=== PATIENT | female | born 1960 | race Caucasian/White ===

== ENCOUNTER 2021-08-26 14:00 | Inpatient (IN) | payer OTHER ==
[~2021-08-26] VITALS: Ht 162.6 cm; Wt 69.9 kg
[~2021-08-26 14:00] MED LIST: SODIUM BICARBONATE VIAL 150 MEQ in IV DEXTROSE 5% 1,000 ML IV ONE
--- NOTE | 2021-08-26 14:07 | PHYS DOC ---
Adult General Chief Complaint Chief Complaint: SHORTNESS OF BREATH HPI HPI Patient is a 60 year old female who presents with cough. Patient is known to have COVID. She comes to the emergency department today primarily requesting stronger cough medication. Patient has been seen at [facility] 2 days ago and the same 3 days ago. Prior to that, she was seen at the [facility] for 2 consecutive days. Currently, this is her fifth emergency department visit since she was diagnosed with COVID. Today, she primarily is requesting stronger cough medication. She says she has a very persistent cough at home. She does not complain of shortness of breath. She does complain of myalgias, fatigue, and decreased appetite. No nausea or vomiting. Review of Systems Review of Systems Constitutional: Denies fever or chills Eyes: Denies change in visual acuity, redness, or eye pain HENT: Has upper respiratory congestion and some hoarseness of the voice Respiratory: Denies cough or shortness of breath, + cough as documented in HPI Cardiovascular: No additional information not addressed in HPI GI: Denies abdominal pain, nausea, vomiting, bloody stools or diarrhea, + diminished PO intake : Denies dysuria or hematuria Musculoskeletal: Denies back pain Integument: Denies rash or skin lesions Neurologic: Denies All other systems were reviewed and found to be within normal limits, except as documented in this note. Current Medications Current Medications Current Medications Medications (Trade) Dose Ordered Sig/[facility] Start Time Stop Time Status Last Admin Dose Admin Sodium Chloride 1,000 ml @ 1,000 mls/hr 1X ONCE 08/26/21 15:15 08/26/21 16:14 Allergies Allergies Allergies Coded Allergies Type Severity Reaction Last Updated Verified Unable to Assess 08/26/21 No Physical Exam Physical Exam Constitutional: Well developed, well nourished, no acute distress, non-toxic appearance, no distress HENT: bilateral external ears normal, oropharynx moist, no oral exudates Eyes: PERRLA, EOMI, conjunctiva normal, no discharge Neck: Normal range of motion, no tenderness Cardiovascular:Heart rate regular rhythm, no murmur Lungs & Thorax: Bilateral breath sounds clear to auscultation, noted to be tachypneic Abdomen: Bowel sounds normal, soft, no tenderness Skin: Warm, dry, no erythema, no rash Back: Normal ROM Extremities: No tenderness, no edema Neurologic: Alert and oriented X 3, normal motor function, normal sensory func tion, no focal deficits noted. Current Patient Data Vital Signs Vital Signs Date Time Temp Pulse Resp B/P (MAP) Pulse Ox O2 Delivery O2 Flow Rate FiO2 08/26/21 14:14 98.9 115 40 121/60 (80) 95 Nasal Cannula 5.0 98.9 Lab Values Laboratory Tests Test 08/26/21 14:45 D-Dimer (Ailin) 4.51 ug/mlFEU (0.00-0.50) H EKG EKG [] Radiology/Procedures Radiology/Procedures [] Course & Med Decision Making Course & Med Decision Making Pertinent Labs and Imaging studies reviewed. (See chart for details) Ms. Alves is evaluated on arrival to her room. Patient is not very forthcoming with history. She presents to the emergency department via EMS. She has paperwork from ER visits. It looks like she has had multiple chest x- rays and basic lab work-ups over the last 5 days. She was stable for discharge all of those times. Currently, she is in no distress. Her lungs are clear with good air movement all multani. Her oxygen saturation is 97% on room air. She is requesting a refill of stronger cough medication. Patient does not give a good history and she is calling her daughter and to give more history. Based on available documents, does not look that she has had dimer completed and we will draw this test today. 15:30: Patient's daughter now at the bedside and available history is gathered. Daughter states patient has been doing very poorly over the last week since being diagnosed with COVID at home. She has been dyspneic. They do have a pulse oximeter at home and daughter reports she has had been having episodes of hypoxia down into the low 80s, primarily with activity. She does have history of diabetes for which she normally takes metformin but has not been eating any food over the last week. EMS was called today because patient was feeling poorly and moaning at home and was not as responsive to other family members as normal. Also again had hypoxia with readings in the 80s at home. Patient has continued to be mildly tachypneic during the ER course with respiratory rate of 36-40. Given the new history, additional labs are ordered along with EKG. Will give IV fluids. We will do walking oxygen desaturation test. Dragon Disclaimer Sheela Disclaimer This electronic medical record was generated, in whole or in part, using a voice recognition dictation system. DWIGHT HUANG DO Aug 26, 2021 14:07
[2021-08-26] MEDS ORDERED: IV NORMAL SALINE 1000ML BAG 1,000 ML IV ONE ×2 (15:15→16:30)
--- NOTE | 2021-08-26 15:31 | RAD ---
XR CHEST 1V INDICATION: Dyspnea COMPARISON STUDY: None. FINDINGS: Lungs: Normal lung volume. Patchy bilateral opacities. Pleura: No pleural effusion or pneumothorax. Heart and Mediastinum: Cardiomegaly. Atherosclerosis of the thoracic aorta. IMPRESSION: Patchy bilateral opacities, which could represent multifocal infection or edema. Electronically signed by: Alirio Robins MD (08/26/2021 3:28 PM) [id number]
[2021-08-26 15:48] LABS: BASE EXCESS ABG -21 mmol/L (-3-3); HCO3 ABG 5 mmol/L (21-28); PO2 ABG 71 mmHg (65-108); SAT O2 ABG 93 % (92-99)
[2021-08-26 15:55] LABS: FIO2 ABG 21/RA; PCO2 ABG < 15 mmHg (35-46)
[2021-08-26] MEDS ORDERED: DEXAMETHASONE SOD PHOS 20 MG/5 ML VIAL. IV ONE (16:00)
[2021-08-26 16:04] LABS: CALCIUM 8.6 mg/dL (8.5-10.1); GFR 56.2; POTASSIUM 4.2 mmol/L (3.5-5.1)
[2021-08-26 16:09] LABS: BASO % 0 % (0-3); EOS % 0 % (0-3); HEMOGLOBIN 14.3 g/dL (12.0-15.5); LYMPH # 0.9 x10^3/uL (1.0-4.8); LYMPH % 7 % (24-48); MEAN CORPUSCULAR HEMOGLOBIN 29 pg (25-35); MEAN CORPUSCULAR HGB CONC 32 g/dL (31-37); MEAN CORPUSCULAR VOLUME 90 fL (79-100); MONO # 0.4 x10^3/uL (0.0-1.1); MONO % 3 % (0-9); NEUT # 11.1 x10^3/uL (1.8-7.7); NEUT % 90 % (31-73); PLATELET COUNT 211 x10^3/uL (140-400); RED BLOOD COUNT 5.01 x10^6/uL (3.50-5.40); RED CELL DISTRIBUTION WIDTH 16.3 % (11.5-14.5); WHITE BLOOD COUNT 12.4 x10^3/uL (4.0-11.0)
[2021-08-26] MEDS ORDERED: CONTRAST GIVEN. MC PRN (16:30)
[2021-08-26] MEDS ORDERED: IOHEXOL 350 MG/ML 100 ML VIAL. IV ONE (16:30)
--- NOTE | 2021-08-26 17:02 | RAD ---
EXAMINATION: CTA Chest With IV contrast INDICATION:60 years, Female, dyspnea, elevated d-dimer, Covid 19 pneumonia, evaluate for pulmonary em bolism. COMPARISON: None. TECHNIQUE: Spiral CTA was obtained from the jugular notch through the posterior costophrenic recess. 3-D MIPS, sagittal and coronal reformats were obtained. Exposure: One or more of the following individualized dose reduction techniques were utilized for thi s examination: 1. Automated exposure control 2. Adjustment of the mA and/or kV according to patient size 3. Use of iterative reconstruction technique. FINDINGS: LUNGS/PLEURA: Central airways are patent. Multifocal bilateral patchy groundglass opacities worst in the left lung. No pleural effusion or pneumothorax. No suspicious pulmonary nodule. MEDIASTINUM: Multiple nonenlarged to prominent mediastinal and bilateral hilar lymph nodes, likely re active. The thoracic aorta and pulmonary arteries are normal in caliber. 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 No evidence of pulmonary embolism. The heart is normal in size. No pericardial e ffusion. LAD stent. Thyroid gland is not visualized. Esophagus is unremarkable. AXILLA/SOFT TISSUE: No supraclavicular or axillary adenopathy. Regional soft tissues are within ellis l limits. UPPER ABDOMEN: Cholecystectomy. Otherwise, unremarkable visualized upper abdominal structures. BONES: No evidence of acute fractures or aggressive osseous lesions. IMPRESSION: 1. No evidence of pulmonary embolism. 2. Multifocal bilateral patchy groundglass opacities, consistent with known Covid 19 pneumonia. Electronically signed by: Jhony Avila MD (08/26/2021 4:59 PM) [facility]
[2021-08-26 17:14] LABS: % BANDS 25 % (0-9); % BASOS 2 % (0-3); % LYMPHS 12 % (24-48); % SEGS 61 % (35-66); PLT ESTIMATE ADEQUATE (ADEQUATE)
[2021-08-26 17:16] LABS: OVALOCYTES OCC; POIKILOCYTOSIS SLIGHT
[2021-08-26 17:17] LABS: POLYCHROMASIA PRESENT; SPHEROCYTES OCC
[2021-08-26 19:00] VITALS: BP 127/68
[2021-08-26] MEDS ORDERED: SODIUM BICARBONATE VIAL 50 MEQ in IV 1/2 NORMAL SALINE 1,000 ML IV SCH ×2 (19:00→21:00)
--- NOTE | 2021-08-26 19:35 | NUR ---
Patient's bag of bicarb now running at wide open (999ml), x first 500 mls, per free text order,
--- NOTE | 2021-08-26 20:03 | HP ---
DATE OF SERVICE: 08/26/2021 ADMIT DATE: 08/26/2021 CHIEF COMPLAINT: Shortness of breath, cough. HISTORY OF PRESENT ILLNESS: The patient is a pleasant 60-year-old female who was diagnosed with COVID some time in the past 10-15 days. She has been to 5 different ERs including [facility]. She has also come to our Emergency Room a couple times. Basically, she presented today complaining of cough. While in the ER, we noticed that her labs are off. She has got anion gap metabolic acidosis with a combined respiratory alkalosis. She is also quite weak and pale, appears septic. I discussed the case with ER physician. We are going to admit the patient with COVID protocol plus bicarbonate drip. PAST MEDICAL HISTORY: Recent COVID-19. ALLERGIES: None. FAMILY HISTORY: Diabetes. SOCIAL HISTORY: She does not drink, smoke or take drugs. MEDICATIONS: Reviewed, please refer to the MRAD. REVIEW OF SYSTEMS: Difficult to obtain. The patient can hardly talk. She is short of breath. She does complain of weakness. PHYSICAL EXAMINATION: VITALS: Within normal limits and are stable. GENERAL: She is very weak. HEENT: Normal cephalic atraumatic, external auditory canals are patent. EYES: Extraocular muscles are intact, pupils are equally round and reactive to light and accommodation. MUSCULOSKELETAL: Well developed, well nourished, good range of motion. ENDOCRINE: No thyromegaly was palpated. LYMPHATICS: No cervical chain or axillary nodes were noted. HEMATOPOIETIC: No bruising. NECK: Supple, no JVD, no thyromegaly was noted. LUNGS: She has decreased breath sounds, but is a little tachypneic at about 28 breaths per minute. She has got a cough. HEART: RRR, S1, S2 present. Peripheral pulses intact, no obvious murmurs were noted. ABDOMEN: Her abdomen is distended, a little obese. EXTREMITIES: Trace edema. NEUROLOGIC: She is very weak. PSYCHIATRIC: She appears depressed. SKIN: No ulcerations or rashes, good skin turgor, no jaundice. VASCULAR: Good capillary refill, neurovascular bundle appears to be intact. LABORATORY DATA: White count 12, hemoglobin 14.3, platelets 211. Electrolytes: Sodium 140, potassium 4.2, chloride 108, bicarbonate 7, anion gap 25, BUN 17, creatinine 1, glucose 144. D-dimer 4.51. ABG: pH 7.17, pCO2 less than 15, pO2 of 71, bicarbonate 5 with 93% sat that was on room air. Chest x-ray shows multifocal infection. CT angio of the chest did not show any pulmonary emboli, but does show ground glass opacities consistent with COVID-19 pneumonia. ASSESSMENT AND PLAN: Severe COVID-19 respiratory failure with anion gap metabolic acidosis and combined respiratory alkalosis, sepsis, coagulopathy. The patient has been admitted. We are starting IV bicarbonate drip, IV steroids, IV Rocephin, IV doxycycline, vitamins and minerals, oxygen, codeine cough syrup, Lovenox, home meds, deep venous thrombosis prophylaxis. Full code. Cardiac monitoring. Trend labs. Prognosis guarded. JOCELYNN DR: Marisel TID: [id number]
[2021-08-26] MEDS ORDERED: VENTOLIN HFA18 GM INH (20:23)
[2021-08-26] MEDS ORDERED: IBUP-1007 PO (20:23)
[2021-08-26] MEDS ORDERED: LISI20TA18 PO (20:23)
[2021-08-26] MEDS ORDERED: BENZ-8 PO (20:23)
[2021-08-26] MEDS ORDERED: ONDA4TAB12 PO (20:23)
[2021-08-26] MEDS ORDERED: CRESTOR40 MG PO (20:23)
[2021-08-26] MEDS ORDERED: EMPA10TA PO (20:23)
[2021-08-26] MEDS ORDERED: LEVO150T5 PO (20:23)
[2021-08-26] MEDS ORDERED: TICA90TA PO (20:23)
[2021-08-26] MEDS ORDERED: GUAI120L35 PO (20:23)
[2021-08-26] MEDS ORDERED: METF10007 PO (20:23)
[2021-08-26] MEDS ORDERED: ASPI-630 PO (20:23)
[2021-08-26] MEDS ORDERED: CARV6.2511 PO (20:23)
[2021-08-26] MEDS ORDERED: LEVO750T5 PO (20:23)
[2021-08-26] MEDS ORDERED: cefTRIAXone IV Push 1 GM VIAL. IVP SCH (21:00)
[2021-08-26] MEDS: DOXYCYCLINE HYCLATE 100 MG in IV DEXTROSE 5% 100ML 100 ML IV SCH (22:11)
[2021-08-26] MEDS: methylPREDNISolone SOD SUCC PF 40 MG/ML VIAL. IV SCH (22:21)
[2021-08-26 22:51] VITALS: BP 137/70
[2021-08-26 23:25] LABS: BASE EXCESS ABG -26 mmol/L (-3-3); HCO3 ABG 4 mmol/L (21-28); PO2 ABG 84 mmHg (65-108); SAT O2 ABG 94 % (92-99)
[2021-08-26 23:34] LABS: PCO2 ABG 15 mmHg (35-46)
--- NOTE | 2021-08-26 23:54 | NUR ---
Dr Chuck Freedman, consulted regarding patient's ABG levels, is notified of the levels, Dr suggests pulmonology to be called.
[2021-08-27] VITALS (28 sets, daily range): BP systolic 80–156; BP diastolic 51–72
[2021-08-27] MEDS ORDERED: SODIUM BICARBONATE VIAL 150 MEQ in IV DEXTROSE 5% 1,000 ML IV ONE
[2021-08-27 00:12] LABS: FIO2 ABG RA
--- NOTE | 2021-08-27 00:16 | NUR ---
Dr Blanca notified of consult, patient's abnormal abg's, and of transferring to ICU, suggests nephrology to be called, agrees to the order for 3 amps bicarb.
[2021-08-27] MEDS ORDERED: PIP/TAZO PER PHARMACY MC PRN (00:30)
--- NOTE | 2021-08-27 00:52 | NUR ---
Order for 0000 3 amps bicarb was a duplicate, one was administered, and this one was omitted/not given
[2021-08-27] MEDS: PIPERACILLIN/TAZOBACTAM 4.5 GM in IV DEXTROSE 5% 100ML 100 ML IV SCH ×5 (00:55→23:36)
[2021-08-27 02:10] LABS: SALIC 8.4 mg/dL (2.8-20.0)
--- NOTE | 2021-08-27 02:15 | NUR ---
Patient transferred to room 114, patient declined to have this nurse call family members regarding her transfer, or status change, this is witnessed per oncoming nurse.
--- NOTE | 2021-08-27 02:32 | NUR ---
patient transferredfrom % for low bicarb levels, increase soa. will cont bicarb. O@ add. patient is axox4 but sleepy. will monitor
[2021-08-27 02:43] LABS: BASO # 0.1 x10^3/uL (0.0-0.2); BASO % 0 % (0-3); EOS % 0 % (0-3); HEMATOCRIT 46.7 % (36.0-47.0); HEMOGLOBIN 14.7 g/dL (12.0-15.5); LYMPH # 1.4 x10^3/uL (1.0-4.8); LYMPH % 5 % (24-48); MEAN CORPUSCULAR HEMOGLOBIN 29 pg (25-35); MEAN CORPUSCULAR HGB CONC 32 g/dL (31-37); MEAN CORPUSCULAR VOLUME 91 fL (79-100); MONO % 4 % (0-9); NEUT # 24.7 x10^3/uL (1.8-7.7); NEUT % 91 % (31-73); PLATELET COUNT 352 x10^3/uL (140-400); RED BLOOD COUNT 5.13 x10^6/uL (3.50-5.40); RED CELL DISTRIBUTION WIDTH 17.3 % (11.5-14.5); WHITE BLOOD COUNT 27.1 x10^3/uL (4.0-11.0)
[2021-08-27 02:49] LABS: CALCIUM 7.9 mg/dL (8.5-10.1); GFR 56.2; POTASSIUM 4.8 mmol/L (3.5-5.1)
[2021-08-27 04:28] LABS: % BANDS 10 % (0-9); % LYMPHS 7 % (24-48); % MONOS 2 % (0-10); % SEGS 81 % (35-66); ANISOCYTOSIS SLIGHT; PLT ESTIMATE ADEQUATE (ADEQUATE); TOXIC GRANULATION SLIGHT
[2021-08-27] MEDS ORDERED: MIDAZOLAM HCL/PF 5 MG/5 ML VIAL. IVP PRN (05:30)
[2021-08-27] MEDS ORDERED: VECURONIUM BOLUS 10 MG VIAL. IV PRN (05:30)
[2021-08-27] MEDS ORDERED: PROPOFOL 100 ML IV ONE (05:32)
[2021-08-27] MEDS ORDERED: ROCURONIUM 50 MG/5 ML VIAL. ONE (05:38)
[2021-08-27] MEDS ORDERED: PROPOFOL 10 MG/ML (100ML) VIAL. IV ONE (06:00)
[2021-08-27 06:02] LABS: BASE EXCESS ABG -24 mmol/L (-3-3); HCO3 ABG 4 mmol/L (21-28); PO2 ABG 62 mmHg (65-108); SAT O2 ABG 90 % (92-99)
[2021-08-27 06:04] LABS: FIO2 ABG 40 (5L NC); PCO2 ABG 15 mmHg (35-46)
[2021-08-27] MEDS: MIDAZOLAM 100mg/100ml NS BAG 100 ML IV PRN ×2 (06:27→21:04)
[2021-08-27] MEDS ORDERED: SODIUM BICARBONATE VIAL 150 MEQ in IV DEXTROSE 5% 1,000 ML IV SCH (06:30)
[2021-08-27 07:19] LABS: BILIRUBIN,URINE NEGATIVE (NEG); CLARITY,URINE CLOUDY; COLOR,URINE YELLOW; NITRITE,URINE NEGATIVE (NEG); PROTEIN,URINE 30 mg/dL (NEG-TRACE); UROBILINOGEN,URINE 0.2 mg/dL (0.2 mg/dL)
--- NOTE | 2021-08-27 07:22 | NUR ---
repeat abg done- see results- Rianna called order for intubation, LEGAL TRANSCRIPTIONIST here, patient intubated, A line place, TL place. CXR done. To have a ct scan today
--- NOTE | 2021-08-27 07:26 | RAD ---
XR CHEST 1V INDICATION: intubation COMPARISON STUDY: 08/26/2021. FINDINGS: Life Support Devices: Endotracheal tube terminates 5.5 cm above the juan. Enteric tube terminates i n the stomach. Right IJ central venous catheter with tip overlying the lower SVC. Lungs: Normal lung volume. Stable patchy bilateral opacities. Pleura: No pleural effusion or pneumothorax. Heart and Mediastinum: Stable cardiomediastinal silhouette and great vessels. IMPRESSION: 1. Life support devices as above. No pneumothorax. 2. Stable patchy bilateral opacities. Electronically signed by: Alirio Robins MD (08/27/2021 7:24 AM) [id number]
--- NOTE | 2021-08-27 07:34 | NUR ---
family notified of intubation
[2021-08-27 07:53] LABS: BACTERIA,URINE 0 /HPF (0-FEW); GRANULAR CASTS,URINE FEW /HPF; HYALINE CASTS, URINE OCCASIONAL /HPF; WBC,URINE 0 /HPF (0-4)
[2021-08-27] MEDS ORDERED: NOREPINEPHRINE VIAL 8 MG in IV DEXTROSE 5% 250 ML IV PRN (08:00)
[2021-08-27 08:10] LABS: BASE EXCESS ABG -24 mmol/L (-3-3); HCO3 ABG 8 mmol/L (21-28); PCO2 ABG 37 mmHg (35-46); PO2 ABG 204 mmHg (65-108); SAT O2 ABG 99 % (92-99)
[2021-08-27] MEDS ORDERED: SODIUM BICARB ADULT 8.4% 50 MEQ/50 ML DISP.SYRIN. IV ONE (08:30)
[2021-08-27 08:31] LABS: BASO # 0.1 x10^3/uL (0.0-0.2); BASO % 0 % (0-3); EOS % 0 % (0-3); HEMATOCRIT 43.1 % (36.0-47.0); HEMOGLOBIN 13.7 g/dL (12.0-15.5); LYMPH # 1.3 x10^3/uL (1.0-4.8); LYMPH % 5 % (24-48); MEAN CORPUSCULAR HEMOGLOBIN 28 pg (25-35); MEAN CORPUSCULAR HGB CONC 32 g/dL (31-37); MEAN CORPUSCULAR VOLUME 90 fL (79-100); MONO # 1.3 x10^3/uL (0.0-1.1); MONO % 4 % (0-9); NEUT # 26.2 x10^3/uL (1.8-7.7); NEUT % 91 % (31-73); PLATELET COUNT 358 x10^3/uL (140-400); RED BLOOD COUNT 4.81 x10^6/uL (3.50-5.40); RED CELL DISTRIBUTION WIDTH 16.9 % (11.5-14.5); WHITE BLOOD COUNT 28.9 x10^3/uL (4.0-11.0)
[2021-08-27 08:45] LABS: ALBUMIN 2.2 g/dL (3.4-5.0); ALBUMIN/GLOBULIN RATIO 0.6 (1.0-1.7); CALCIUM 7.8 mg/dL (8.5-10.1); CREATININE 1.3 mg/dL (0.6-1.0); GFR 41.5; MAGNESIUM 2.2 mg/dL (1.8-2.4); PHOSPHORUS 3.9 mg/dL (2.6-4.7); POTASSIUM 3.8 mmol/L (3.5-5.1); TOTAL BILIRUBIN 0.6 mg/dL (0.2-1.0); TOTAL PROTEIN 6.1 g/dL (6.4-8.2)
[2021-08-27] MEDS: MULTIVITAMIN with MINERAL TABLET. PO SCH (08:51)
[2021-08-27] MEDS: methylPREDNISolone SOD SUCC PF 40 MG/ML VIAL. IV SCH (08:51)
[2021-08-27] MEDS: ENOXAPARIN 40 MG/0.4 ML SYRINGE. SQ SCH (08:52)
[2021-08-27] MEDS: DOXYCYCLINE HYCLATE 100 MG in IV DEXTROSE 5% 100ML 100 ML IV SCH ×2 (08:58→21:33)
--- NOTE | 2021-08-27 09:29 | PDOC ---
Provider Note Date of Service: DATE: 08/27/21 TIME: 09:10 Provider Note Anesthesia note. Requested for Intubation, arterial line, and central line placement in patient in respiratory failure with Covid . 7.5 OET placed without diff with #3 Glidescope after propofol and rocuronium for relaxation, Positive color change on EtCO2 indicator, BSBE, tube secured by RT at 20 cm at the teeth. Pt placed on the ventilator. #20 Arrow placed in right radial artery without difficulty using sterile technique and chlorhexidene prep. 7 Fr 3 lumen central line placed in right internal jugular vein with ultrasound guidance using sterile technique and maximum sterile barrier. Clorhexidene prep, jugular vein easily entered and guidewire inserted. 3lumen catheter introduced over wire without difficulty, wire removed and all lumens flushed with 10cc normal saline. Catheter sutured in place and covered with biopatch and Op-site dressing. Chest X-ray ordered. Intubation and lines placed by Abe Reyes CRNA Justifications for Admission Other Justification LAMBERTO REYES CRNA Aug 27, 2021 09:29
[2021-08-27] MEDS ORDERED: IV 1/2 NORMAL SALINE 1,000 ML IV SCH ×2 (10:00→18:00)
[2021-08-27] MEDS: POTASSIUM CHLORIDE 20MEQ 100 ML IV SCH ×2 (10:17→11:13)
[2021-08-27] MEDS: INSULIN REGULAR VIAL 100 UNIT in IV NORMAL SALINE 100ML 100 ML IV PRN ×2 (10:18→17:07)
--- NOTE | 2021-08-27 11:22 | CONS ---
DATE OF CONSULTATION: 08/27/2021 PULMONARY CONSULTATION ATTENDING PHYSICIAN: Jag Schwarz DO REASON FOR CONSULTATION: Respiratory failure, severe metabolic acidosis. HISTORY OF PRESENT ILLNESS: The patient is a 60-year-old female who has history of diabetes. She was diagnosed with COVID positive about 10-15 days ago. She has been to multiple different Emergency Rooms. She presented to our Emergency Room with complaint of shortness of breath. She also had a cough. The patient was noted to have severe metabolic acidosis. I was called about the patient early this morning. The pH was 7.17 with a pCO2 of less than 15 and a bicarbonate of only 5 on room air. Her pO2 was 71. Her chemistries revealed a blood sugar of 266. Her BUN was 26 and creatinine 1.0. At that time, we transferred the patient to the ICU. This morning, she was noted to be lethargic. At that time, we opted to intubate the patient as the patient's pH has been down to 7.0 with a pCO2 of 15 and a pO2 of 84 with a bicarb of 4. The patient had a CT angiogram, which was reviewed by me and it shows diffuse bilateral patchy infiltrates with no evidence of pulmonary embolism. Her chest x-ray post-intubation shows endotracheal tube to be in satisfactory position. There were unchanged bilateral infiltrates. She is currently on a bicarbonate drip. She is making a lot of urine. Her blood sugar is 397. She is a known diabetic. PAST MEDICAL HISTORY: Significant for diabetes. PAST SURGICAL HISTORY: None recently. ALLERGIES: None. MEDICATIONS: Reviewed as listed in the MRAD including IV Solu-Medrol and IV Zosyn. She is also on Levophed and Lovenox for DVT prophylaxis. SYSTEM REVIEW: Unable to obtain from the patient. SOCIAL HISTORY: No history of tobacco use. PHYSICAL EXAMINATION: VITAL SIGNS: Reviewed. Blood pressure 100 systolic on low dose Levophed. Pulse ox is 100%. NECK: Supple. LUNGS: With diminished breath sounds. CARDIOVASCULAR: With a regular rate. ABDOMEN: Soft, nontender. EXTREMITIES: With no pitting edema. She has good perfusion. LABORATORY DATA: Reviewed. Her sodium 146, potassium 3.8, chloride 110, bicarbonate 10, BUN 31, creatinine 1.3. Blood glucose 397. D-dimer is 4.1. White cell count 28.9. IMPRESSION: 1. Acute respiratory failure secondary to severe metabolic acidosis. 2. Severe metabolic acidosis. Likely etiology is diabetic ketoacidosis. Her lactic acid was 1.6. She clinically has a component of septic shock as well. She is not in renal failure as she is making reasonable urine. Clinically, less likely bowel perforation. 3. Abnormal chest x-ray and CT angiogram with diffuse bilateral patchy infiltrates consistent with viral pneumonia. 4. COVID-19 positive. 5. Severe protein-calorie malnutrition. 6. Marked leukocytosis. 7. Septic shock. RECOMMENDATIONS: 1. Discussed with respiratory therapist and RN. At this time, we will continue present assist control mode. Follow ABGs and make necessary adjustments. 2. Diabetic ketoacidosis protocol. 3. Continue vasopressor support. 4. IV hydration. 5. Continue low-dose Solu-Medrol for COVID-19. 6. It is too late for remdesivir. 7. Lovenox for DVT prophylaxis. 8. Continue present aggressive treatment. 9. If metabolic acidosis does not improve then consider doing abdomen and pelvis to rule out bowel perforation. 10. Discussed with RN and RT. 11. Discussed with Dr. Smith. 12. Chart reviewed, imaging studies reviewed. Total critical care time [address]: Kira TID: [id number]
--- NOTE | 2021-08-27 11:58 | PDOC2 ---
CONSULT Date of Consult Date of Consult DATE: 08/27/21 TIME: 11:47 Reason for Consult Reason for Consult: Abnormal ABG Referring Physician Referring Physician: Chong Identification/Chief Complaint Chief Complaint Cough with COVID positivity Source Source: Chart review History of Present Illness Reason for Visit: Patient is a 60-year-old female who presented to the ER on 08/26/2021 with complaints of cough. She is noted to have been diagnosed with COVID about a week or 2 ago. She apparently has been seen at [facility] as well as at [facility]. As reported in the ER this is her fifth ER visit. She was initially requesting stronger cough medication she was noted to have a bicarb of 7 and an anion gap of 25 with a BUN of 17 and a creatinine of 1.0. her initial ABG was 7.17 with a undetectable PCO2 and a PO2 of 71 bicarb of 5 on room air. Most recent ABG is 6.95, 37, 204, bicarb of 8 while now intubated on ventilator. Creatinine has raised up to 1.3. Urine output is good. CTA with IV contrast was done in the ER Past Medical History Past Medical History Hypothyroidism History of heart attack status post stents Dyslipidemia Hypertension Asthma Diabetes Past Surgical History Past Surgical History: Cholecystectomy Family History Family History Unable to be obtained from the patient while sedated intubated in COVID 19 respiratory isolation. Reviewed as documented by other providers Social History Social History Unable to be obtained from the patient was sedated intubated and COVID-19 respiratory isolation. Reviewed as documented by other providers Current Medications Current Medications Current Medications Sodium Chloride 1,000 ml @ 1,000 mls/hr 1X ONCE IV Last administered on 08/26/21at 15:15; Admin Dose 1,000 MLS/HR; Start 08/26/21 at 15:15; Stop 08/26/21 at 16:14; Status DC Dexamethasone Sodium Phosphate (Decadron) 10 mg 1X ONCE IV Last administered on 08/26/21at 16:00; Admin Dose 10 MG; Start 08/26/21 at 16:00; Stop 08/26/21 at 16:01; Status DC Iohexol (Omnipaque 350 Mg/ml) 90 ml 1X ONCE IV Last administered on 08/26/21at 16:41; Admin Dose 90 ML; Start 08/26/21 at 16:30; Stop 08/26/21 at 16:31; Status DC Info (CONTRAST GIVEN -- Rx MONITORING) 1 each PRN DAILY PRN MC SEE COMMENTS; Start 08/26/21 at 16:30; Stop 08/28/21 at 16:29 Sodium Chloride 1,000 ml @ 1,000 mls/hr 1X ONCE IV ; Start 08/26/21 at 16:30; Stop 08/26/21 at 17:29; Status DC Sodium Bicarbonate 50 meq/Sodium Chloride 1,050 ml @ 100 mls/hr [id number] IV Last administered on 08/26/21at 18:32; Admin Dose 100 MLS/HR; Start 08/26/21 at 19:00; Stop 08/26/21 at 21:03; Status DC Methylprednisolone Sodium Succinate (SOLU-Medrol 40MG VIAL) 40 mg BID IV Last administered on 08/27/21at 08:51; Admin Dose 40 MG; Start 08/26/21 at 21:00 Ceftriaxone Sodium (Rocephin) 1 gm Q24H IVP Last administered on 08/26/21at 22:22; Admin Dose 1 GM; Start 08/26/21 at 21:00; Stop 08/27/21 at 00:25; Status DC Doxycycline Hyclate 100 mg/ Dextrose 100 ml @ 50 mls/hr Q12HR IV Last administered on 08/27/21at 08:58; Admin Dose 50 MLS/HR; Start 08/26/21 at 21:00 Enoxaparin Sodium (Lovenox 40mg Syringe) 40 mg DAILY SQ Last administered on 08/27/21at 08:52; Admin Dose 40 MG; Start 08/27/21 at 09:00 Multivitamins (Thera M Plus) 1 tab DAILY PO Last administered on 08/27/21at 08:51; Admin Dose 1 TAB; Start 08/27/21 at 09:00 Sodium Bicarbonate 50 meq/Sodium Chloride 1,050 ml @ 200 mls/hr Q5H15M IV ; Start 08/26/21 at 21:00; Stop 08/26/21 at 23:59; Status DC Sodium Bicarbonate 150 meq/Dextrose 1,150 ml @ 200 mls/hr Q5H45M ONCE IV ; Start 08/26/21 at 00:00; Stop 08/26/21 at 23:45; Status DC Sodium Bicarbonate 150 meq/Dextrose 1,150 ml @ 200 mls/hr Q5H45M ONCE IV Last administered on 08/26/21at 23:54; Admin Dose 200 MLS/HR; Start 08/27/21 at 00:00; Stop 08/27/21 at 05:44; Status DC Piperacillin Sod/ Tazobactam Sod (Zosyn Per Pharmacy) 1 each PRN DAILY PRN MC SEE COMMENTS; Start 08/27/21 at 00:30 Piperacillin Sod/ Tazobactam Sod 4.5 gm/Dextrose 100 ml @ 200 mls/hr Q6HRS IV Last administered on 08/27/21at 11:13; Admin Dose 200 MLS/HR; Start 08/27/21 at 01:00 Fentanyl Citrate 30 ml @ 2.5 mls/hr CONT PRN IV SEE PROTOCOL Last administered on 08/27/21at 06:26; Admin Dose 2.5 MLS/HR; Start 08/27/21 at 05:30 Midazolam HCl 100 ml @ 1 mls/hr CONT PRN IV SEE PROTOCOL Last administered on 08/27/21at 06:27; Admin Dose 1 MLS/HR; Start 08/27/21 at 05:30 Vecuronium [place] (Norcuron Bolus) 6 mg PRN 1X PRN IV VENT INDUCTION Last administered on 08/27/21at 06:28; Admin Dose 6 MG; Start 08/27/21 at 05:30; Stop 08/27/21 at 06:28; Status DC Midazolam HCl (Versed) 5 mg PRN 1X PRN IVP VENT INDUCTION; Start 08/27/21 at 05:30; Stop 08/28/21 at 05:29 Propofol 100 ml @ 2.013 mls/ hr CONT PRN IV PER PROTOCOL; Start 08/27/21 at 05:30 Sodium Bicarbonate 150 meq/Dextrose 1,150 ml @ 200 mls/hr Q5H45M IV Last administered on 08/27/21at 06:30; Admin Dose 200 MLS/HR; Start 08/27/21 at 06:30 Norepinephrine Bitartrate 8 mg/ Dextrose 258 ml @ 12.984 mls/ hr CONT PRN IV PER PROTOCOL; Start 08/27/21 at 08:00 Sodium Bicarbonate (Sodium Bicarb Adult 8.4% Syr) 50 meq 1X ONCE IV Last administered on 08/27/21at 08:49; Admin Dose 50 MEQ; Start 08/27/21 at 08:30; Stop 08/27/21 at 08:31; Status DC Insulin Human Regular 100 unit/ Sodium Chloride 101 ml @ 0 mls/hr CONT PRN PRN IV PER PROTOCOL Last administered on 08/27/21at 10:18; Admin Dose 6.7 MLS/HR; Start 08/27/21 at 09:30 Potassium Chloride/Water 100 ml @ 100 mls/hr Q1H IV Last administered on 08/27/21at 11:13; Admin Dose 100 MLS/HR; Start 08/27/21 at 10:00; Stop 08/27/21 at 11:59 Sodium Chloride 1,000 ml @ 250 mls/hr Q4H IV Last administered on 08/27/21at 10:18; Admin Dose 250 MLS/HR; Start 08/27/21 at 10:00 Active Scripts Active Reported Aspirin 81 Mg Tab.chew 1 Tab PO DAILY Codeine-Guaifen 10-100 mg/5 ml (Guaifenesin/Codeine Phosphate) 120 Ml Liquid 5 Ml PO PRN Q6HRS PRN MDD 20 Milliliter(s) 6 Days Ibuprofen 600 Mg Tablet 600 Mg PO PRN Q8HRS PRN Ondansetron Odt (Ondansetron) 4 Mg Tab.rapdis 1 Tab PO PRN Q6-8HRS Benzonatate 100 Mg Capsule 1 Cap PO TID Carvedilol (Carvedilol) 6.25 Mg Tablet 6.25 Mg PO BIDWMEALS Levothyroxine Sodium 150 Mcg Tablet 1 Tab PO DAILY Levofloxacin 750 Mg Tablet 1 Tab PO DAILY PRN Jardiance (Empagliflozin) 10 Mg Tablet 10 Mg PO DAILY Lisinopril 20 Mg Tablet 1 Tab PO BID Metformin Hcl 1,000 Mg Tablet 1,000 Mg PO BIDWMEALS Crestor (Rosuvastatin Calcium) 40 Mg Tablet 20 Mg PO HS Ventolin Hfa Inhaler (Albuterol Sulfate) 18 Gm Hfa.aer.ad 2 Puff INH Q4HRS Brilinta (Ticagrelor) 90 Mg Tablet 90 Mg PO BID Allergies Allergies: Coded Allergies: No Known Drug Allergies (Unverified , 08/26/21) ROS Review of System Unable to be obtained from the patient was sedated intubated and COVID-19 respiratory isolation. Reviewed as documented by other providers Physical Exam Physical Exam Physical exam is extremely limited due to COVID-19 respiratory isolation patient is currently intubated sedated on the ventilator Vital Signs Vital Signs Date Time Temp Pulse Resp B/P (MAP) Pulse Ox O2 Delivery O2 Flow Rate FiO2 08/27/21 10:53 99 Ventilator 08/27/21 08:00 94 08/27/21 07:29 93/52 (66) 08/27/21 06:56 20 08/27/21 06:26 5.0 08/27/21 04:00 97.8 97.8 Assessment & Plan Abnormal ABG suggestive of wide anion gap metabolic acidosis. Lactic acid is minimal. We are unable to order serum ketones at this facility. Urine ketones were positive. Hence ketosis seems to be the most likely etiology of metabolic acidosis. She remains on bicarb containing fluids at this time. Patient is on Jardiance at home and metabolic acidosis due to the same cannot be ruled out if metabolic acidosis continues to worsen, she may need initiation of dialysis. She remains on dextrose with bicarb drip and on DKA protocol. Acute kidney injury presumably associated with intravascular volume depletion, hypotension, contrast nephropathy from CTA cannot be ruled out. Home medications do show ibuprofen, it is unclear to me how much she has taken in the recent past Hypotension on minimal pressors. We will be cautious with aggressive volume repletion in light of COVID pneumonitis Known underlying diabetes COVID-19 positivity Prognosis is guarded Labs Labs Laboratory Tests Test 08/26/21 14:45 08/26/21 15:30 08/26/21 15:45 08/26/21 23:02 White Blood Count 12.4 x10^3/uL (4.0-11.0) Red Blood Count 5.01 x10^6/uL (3.50-5.40) Hemoglobin 14.3 g/dL (12.0-15.5) Hematocrit 45.0 % (36.0-47.0) Mean Corpuscular Volume 90 fL (79-100) Mean Corpuscular Hemoglobin 29 pg (25-35) Mean Corpuscular Hemoglobin Concent 32 g/dL (31-37) Red Cell Distribution Width 16.3 % (11.5-14.5) Platelet Count 211 x10^3/uL (140-400) Neutrophils (%) (Auto) 90 % (31-73) Lymphocytes (%) (Auto) 7 % (24-48) Monocytes (%) (Auto) 3 % (0-9) Eosinophils (%) (Auto) 0 % (0-3) Basophils (%) (Auto) 0 % (0-3) Neutrophils # (Auto) 11.1 x10^3/uL (1.8-7.7) Lymphocytes # (Auto) 0.9 x10^3/uL (1.0-4.8) Monocytes # (Auto) 0.4 x10^3/uL (0.0-1.1) Eosinophils # (Auto) 0.0 x10^3/uL (0.0-0.7) Basophils # (Auto) 0.0 x10^3/uL (0.0-0.2) Segmented Neutrophils % 61 % (35-66) Band Neutrophils % 25 % (0-9) Lymphocytes % 12 % (24-48) Basophils % 2 % (0-3) Platelet Estimate Adequate (ADEQUATE) Large Platelets Present Polychromasia Present Poikilocytosis Slight Spherocytes Occ Ovalocytes Occ Crenated Cell Present D-Dimer (Ailin) 4.51 ug/mlFEU (0.00-0.50) Sodium Level 140 mmol/L (136-145) Potassium Level 4.2 mmol/L (3.5-5.1) Chloride Level 108 mmol/L (98-107) Carbon Dioxide Level 7 mmol/L (21-32) Anion Gap 25 (6-14) Blood Urea Nitrogen 17 mg/dL (7-20) Creatinine 1.0 mg/dL (0.6-1.0) Estimated GFR (Cockcroft-Gault) 56.2 Glucose Level 144 mg/dL (70-99) Calcium Level 8.6 mg/dL (8.5-10.1) Troponin I High Sensitivity 8 ng/L (4-50) Lactic Acid Level 1.6 mmol/L (0.4-2.0) O2 Saturation 93 % (92-99) 94 % (92-99) Arterial Blood pH 7.17 (7.35-7.45) 7.00 (7.35-7.45) Arterial Blood pCO2 at Patient Temp < 15 mmHg (35-46) 15 mmHg (35-46) Arterial Blood pO2 at Patient Temp 71 mmHg (65-108) 84 mmHg (65-108) Arterial Blood HCO3 5 mmol/L (21-28) 4 mmol/L (21-28) Arterial Blood Base Excess -21 mmol/L (-3-3) -26 mmol/L (-3-3) FiO2 21/ra Ra Test 08/27/21 01:40 08/27/21 03:57 08/27/21 04:38 08/27/21 06:45 White Blood Count 27.1 x10^3/uL (4.0-11.0) Red Blood Count 5.13 x10^6/uL (3.50-5.40) Hemoglobin 14.7 g/dL (12.0-15.5) Hematocrit 46.7 % (36.0-47.0) Mean Corpuscular Volume 91 fL (79-100) Mean Corpuscular Hemoglobin 29 pg (25-35) Mean Corpuscular Hemoglobin Concent 32 g/dL (31-37) Red Cell Distribution Width 17.3 % (11.5-14.5) Platelet Count 352 x10^3/uL (140-400) Neutrophils (%) (Auto) 91 % (31-73) Lymphocytes (%) (Auto) 5 % (24-48) Monocytes (%) (Auto) 4 % (0-9) Eosinophils (%) (Auto) 0 % (0-3) Basophils (%) (Auto) 0 % (0-3) Neutrophils # (Auto) 24.7 x10^3/uL (1.8-7.7) Lymphocytes # (Auto) 1.4 x10^3/uL (1.0-4.8) Monocytes # (Auto) 1.0 x10^3/uL (0.0-1.1) Eosinophils # (Auto) 0.0 x10^3/uL (0.0-0.7) Basophils # (Auto) 0.1 x10^3/uL (0.0-0.2) Segmented Neutrophils % 81 % (35-66) Band Neutrophils % 10 % (0-9) Lymphocytes % 7 % (24-48) Monocytes % 2 % (0-10) Toxic Granulation Slight Platelet Estimate Adequate (ADEQUATE) Anisocytosis Slight Sodium Level 145 mmol/L (136-145) Potassium Level 4.8 mmol/L (3.5-5.1) Chloride Level 110 mmol/L (98-107) Carbon Dioxide Level 6 mmol/L (21-32) Anion Gap 29 (6-14) Blood Urea Nitrogen 26 mg/dL (7-20) Creatinine 1.0 mg/dL (0.6-1.0) Estimated GFR (Cockcroft-Gault) 56.2 Glucose Level 261 mg/dL (70-99) Calcium Level 7.9 mg/dL (8.5-10.1) Salicylates Level 8.4 mg/dL (2.8-20.0) Salicylate Last Dose Date Unk Salicylate Last Dose Time Unk Glucose (Fingerstick) 266 mg/dL (70-99) O2 Saturation 90 % (92-99) Arterial Blood pH 7.06 (7.35-7.45) Arterial Blood pCO2 at Patient Temp 15 mmHg (35-46) Arterial Blood pO2 at Patient Temp 62 mmHg (65-108) Arterial Blood HCO3 4 mmol/L (21-28) Arterial Blood Base Excess -24 mmol/L (-3-3) FiO2 40 (5l nc) Urine Collection Type Unknown Urine Color Yellow Urine Clarity Cloudy Urine pH 5.0 (<5.0-8.0) Urine Specific May 1.025 (1.000-1.030) Urine Protein 30 mg/dL (NEG-TRACE) Urine Glucose (UA) >=1000 mg/dL (NEG) Urine Ketones (Stick) >=80 mg/dL (NEG) Urine Blood Small (NEG) Urine Nitrite Negative (NEG) Urine Bilirubin Negative (NEG) Urine Urobilinogen Dipstick 0.2 mg/dL (0.2 mg/dL) Urine Leukocyte Esterase Negative (NEG) Urine RBC 1-2 /HPF (0-2) Urine WBC 0 /HPF (0-4) Urine Squamous Epithelial Cells Occ /LPF Urine Bacteria 0 /HPF (0-FEW) Urine Hyaline Casts Occasional /HPF Urine Granular Casts Few /HPF Urine Mucus Mod /LPF Test 08/27/21 08:00 08/27/21 08:15 08/27/21 11:21 O2 Saturation 99 % (92-99) Arterial Blood pH 6.95 (7.35-7.45) Arterial Blood pCO2 at Patient Temp 37 mmHg (35-46) Arterial Blood pO2 at Patient Temp 204 mmHg (65-108) Arterial Blood HCO3 8 mmol/L (21-28) Arterial Blood Base Excess -24 mmol/L (-3-3) FiO2 100/vent White Blood Count 28.9 x10^3/uL (4.0-11.0) Red Blood Count 4.81 x10^6/uL (3.50-5.40) Hemoglobin 13.7 g/dL (12.0-15.5) Hematocrit 43.1 % (36.0-47.0) Mean Corpuscular Volume 90 fL (79-100) Mean Corpuscular Hemoglobin 28 pg (25-35) Mean Corpuscular Hemoglobin Concent 32 g/dL (31-37) Red Cell Distribution Width 16.9 % (11.5-14.5) Platelet Count 358 x10^3/uL (140-400) Neutrophils (%) (Auto) 91 % (31-73) Lymphocytes (%) (Auto) 5 % (24-48) Monocytes (%) (Auto) 4 % (0-9) Eosinophils (%) (Auto) 0 % (0-3) Basophils (%) (Auto) 0 % (0-3) Neutrophils # (Auto) 26.2 x10^3/uL (1.8-7.7) Lymphocytes # (Auto) 1.3 x10^3/uL (1.0-4.8) Monocytes # (Auto) 1.3 x10^3/uL (0.0-1.1) Eosinophils # (Auto) 0.0 x10^3/uL (0.0-0.7) Basophils # (Auto) 0.1 x10^3/uL (0.0-0.2) Sodium Level 146 mmol/L (136-145) Potassium Level 3.8 mmol/L (3.5-5.1) Chloride Level 110 mmol/L (98-107) Carbon Dioxide Level 10 mmol/L (21-32) Anion Gap 26 (6-14) Blood Urea Nitrogen 31 mg/dL (7-20) Creatinine 1.3 mg/dL (0.6-1.0) Estimated GFR (Cockcroft-Gault) 41.5 BUN/Creatinine Ratio 24 (6-20) Glucose Level 397 mg/dL (70-99) Calcium Level 7.8 mg/dL (8.5-10.1) Phosphorus Level 3.9 mg/dL (2.6-4.7) Magnesium Level 2.2 mg/dL (1.8-2.4) Total Bilirubin 0.6 mg/dL (0.2-1.0) Aspartate Amino Transf (AST/SGOT) 85 U/L (15-37) Alanine Aminotransferase (ALT/SGPT) 47 U/L (14-59) Alkaline Phosphatase 139 U/L (46-116) Total Protein 6.1 g/dL (6.4-8.2) Albumin 2.2 g/dL (3.4-5.0) Albumin/Globulin Ratio 0.6 (1.0-1.7) Glucose (Fingerstick) 375 mg/dL (70-99) Laboratory Tests Test 08/26/21 14:45 08/26/21 15:30 08/26/21 15:45 08/26/21 23:02 White Blood Count 12.4 x10^3/uL (4.0-11.0) Red Blood Count 5.01 x10^6/uL (3.50-5.40) Hemoglobin 14.3 g/dL (12.0-15.5) Hematocrit 45.0 % (36.0-47.0) Mean Corpuscular Volume 90 fL (79-100) Mean Corpuscular Hemoglobin 29 pg (25-35) Mean Corpuscular Hemoglobin Concent 32 g/dL (31-37) Red Cell Distribution Width 16.3 % (11.5-14.5) Platelet Count 211 x10^3/uL (140-400) Neutrophils (%) (Auto) 90 % (31-73) Lymphocytes (%) (Auto) 7 % (24-48) Monocytes (%) (Auto) 3 % (0-9) Eosinophils (%) (Auto) 0 % (0-3) Basophils (%) (Auto) 0 % (0-3) Neutrophils # (Auto) 11.1 x10^3/uL (1.8-7.7) Lymphocytes # (Auto) 0.9 x10^3/uL (1.0-4.8) Monocytes # (Auto) 0.4 x10^3/uL (0.0-1.1) Eosinophils # (Auto) 0.0 x10^3/uL (0.0-0.7) Basophils # (Auto) 0.0 x10^3/uL (0.0-0.2) Segmented Neutrophils % 61 % (35-66) Band Neutrophils % 25 % (0-9) Lymphocytes % 12 % (24-48) Basophils % 2 % (0-3) Platelet Estimate Adequate (ADEQUATE) Large Platelets Present Polychromasia Present Poikilocytosis Slight Spherocytes Occ Ovalocytes Occ Crenated Cell Present D-Dimer (Ailin) 4.51 ug/mlFEU (0.00-0.50) Sodium Level 140 mmol/L (136-145) Potassium Level 4.2 mmol/L (3.5-5.1) Chloride Level 108 mmol/L (98-107) Carbon Dioxide Level 7 mmol/L (21-32) Anion Gap 25 (6-14) Blood Urea Nitrogen 17 mg/dL (7-20) Creatinine 1.0 mg/dL (0.6-1.0) Estimated GFR (Cockcroft-Gault) 56.2 Glucose Level 144 mg/dL (70-99) Calcium Level 8.6 mg/dL (8.5-10.1) Troponin I High Sensitivity 8 ng/L (4-50) Lactic Acid Level 1.6 mmol/L (0.4-2.0) O2 Saturation 93 % (92-99) 94 % (92-99) Arterial Blood pH 7.17 (7.35-7.45) 7.00 (7.35-7.45) Arterial Blood pCO2 at Patient Temp < 15 mmHg (35-46) 15 mmHg (35-46) Arterial Blood pO2 at Patient Temp 71 mmHg (65-108) 84 mmHg (65-108) Arterial Blood HCO3 5 mmol/L (21-28) 4 mmol/L (21-28) Arterial Blood Base Excess -21 mmol/L (-3-3) -26 mmol/L (-3-3) FiO2 21/ra Ra Test 08/27/21 01:40 08/27/21 03:57 08/27/21 04:38 08/27/21 06:45 White Blood Count 27.1 x10^3/uL (4.0-11.0) Red Blood Count 5.13 x10^6/uL (3.50-5.40) Hemoglobin 14.7 g/dL (12.0-15.5) Hematocrit 46.7 % (36.0-47.0) Mean Corpuscular Volume 91 fL (79-100) Mean Corpuscular Hemoglobin 29 pg (25-35) Mean Corpuscular Hemoglobin Concent 32 g/dL (31-37) Red Cell Distribution Width 17.3 % (11.5-14.5) Platelet Count 352 x10^3/uL (140-400) Neutrophils (%) (Auto) 91 % (31-73) Lymphocytes (%) (Auto) 5 % (24-48) Monocytes (%) (Auto) 4 % (0-9) Eosinophils (%) (Auto) 0 % (0-3) Basophils (%) (Auto) 0 % (0-3) Neutrophils # (Auto) 24.7 x10^3/uL (1.8-7.7) Lymphocytes # (Auto) 1.4 x10^3/uL (1.0-4.8) Monocytes # (Auto) 1.0 x10^3/uL (0.0-1.1) Eosinophils # (Auto) 0.0 x10^3/uL (0.0-0.7) Basophils # (Auto) 0.1 x10^3/uL (0.0-0.2) Segmented Neutrophils % 81 % (35-66) Band Neutrophils % 10 % (0-9) Lymphocytes % 7 % (24-48) Monocytes % 2 % (0-10) Toxic Granulation Slight Platelet Estimate Adequate (ADEQUATE) Anisocytosis Slight Sodium Level 145 mmol/L (136-145) Potassium Level 4.8 mmol/L (3.5-5.1) Chloride Level 110 mmol/L (98-107) Carbon Dioxide Level 6 mmol/L (21-32) Anion Gap 29 (6-14) Blood Urea Nitrogen 26 mg/dL (7-20) Creatinine 1.0 mg/dL (0.6-1.0) Estimated GFR (Cockcroft-Gault) 56.2 Glucose Level 261 mg/dL (70-99) Calcium Level 7.9 mg/dL (8.5-10.1) Salicylates Level 8.4 mg/dL (2.8-20.0) Salicylate Last Dose Date Unk Salicylate Last Dose Time Unk Glucose (Fingerstick) 266 mg/dL (70-99) O2 Saturation 90 % (92-99) Arterial Blood pH 7.06 (7.35-7.45) Arterial Blood pCO2 at Patient Temp 15 mmHg (35-46) Arterial Blood pO2 at Patient Temp 62 mmHg (65-108) Arterial Blood HCO3 4 mmol/L (21-28) Arterial Blood Base Excess -24 mmol/L (-3-3) FiO2 40 (5l nc) Urine Collection Type Unknown Urine Color Yellow Urine Clarity Cloudy Urine pH 5.0 (<5.0-8.0) Urine Specific May 1.025 (1.000-1.030) Urine Protein 30 mg/dL (NEG-TRACE) Urine Glucose (UA) >=1000 mg/dL (NEG) Urine Ketones (Stick) >=80 mg/dL (NEG) Urine Blood Small (NEG) Urine Nitrite Negative (NEG) Urine Bilirubin Negative (NEG) Urine Urobilinogen Dipstick 0.2 mg/dL (0.2 mg/dL) Urine Leukocyte Esterase Negative (NEG) Urine RBC 1-2 /HPF (0-2) Urine WBC 0 /HPF (0-4) Urine Squamous Epithelial Cells Occ /LPF Urine Bacteria 0 /HPF (0-FEW) Urine Hyaline Casts Occasional /HPF Urine Granular Casts Few /HPF Urine Mucus Mod /LPF Test 08/27/21 08:00 08/27/21 08:15 08/27/21 11:21 O2 Saturation 99 % (92-99) Arterial Blood pH 6.95 (7.35-7.45) Arterial Blood pCO2 at Patient Temp 37 mmHg (35-46) Arterial Blood pO2 at Patient Temp 204 mmHg (65-108) Arterial Blood HCO3 8 mmol/L (21-28) Arterial Blood Base Excess -24 mmol/L (-3-3) FiO2 100/vent White Blood Count 28.9 x10^3/uL (4.0-11.0) Red Blood Count 4.81 x10^6/uL (3.50-5.40) Hemoglobin 13.7 g/dL (12.0-15.5) Hematocrit 43.1 % (36.0-47.0) Mean Corpuscular Volume 90 fL (79-100) Mean Corpuscular Hemoglobin 28 pg (25-35) Mean Corpuscular Hemoglobin Concent 32 g/dL (31-37) Red Cell Distribution Width 16.9 % (11.5-14.5) Platelet Count 358 x10^3/uL (140-400) Neutrophils (%) (Auto) 91 % (31-73) Lymphocytes (%) (Auto) 5 % (24-48) Monocytes (%) (Auto) 4 % (0-9) Eosinophils (%) (Auto) 0 % (0-3) Basophils (%) (Auto) 0 % (0-3) Neutrophils # (Auto) 26.2 x10^3/uL (1.8-7.7) Lymphocytes # (Auto) 1.3 x10^3/uL (1.0-4.8) Monocytes # (Auto) 1.3 x10^3/uL (0.0-1.1) Eosinophils # (Auto) 0.0 x10^3/uL (0.0-0.7) Basophils # (Auto) 0.1 x10^3/uL (0.0-0.2) Sodium Level 146 mmol/L (136-145) Potassium Level 3.8 mmol/L (3.5-5.1) Chloride Level 110 mmol/L (98-107) Carbon Dioxide Level 10 mmol/L (21-32) Anion Gap 26 (6-14) Blood Urea Nitrogen 31 mg/dL (7-20) Creatinine 1.3 mg/dL (0.6-1.0) Estimated GFR (Cockcroft-Gault) 41.5 BUN/Creatinine Ratio 24 (6-20) Glucose Level 397 mg/dL (70-99) Calcium Level 7.8 mg/dL (8.5-10.1) Phosphorus Level 3.9 mg/dL (2.6-4.7) Magnesium Level 2.2 mg/dL (1.8-2.4) Total Bilirubin 0.6 mg/dL (0.2-1.0) Aspartate Amino Transf (AST/SGOT) 85 U/L (15-37) Alanine Aminotransferase (ALT/SGPT) 47 U/L (14-59) Alkaline Phosphatase 139 U/L (46-116) Total Protein 6.1 g/dL (6.4-8.2) Albumin 2.2 g/dL (3.4-5.0) Albumin/Globulin Ratio 0.6 (1.0-1.7) Glucose (Fingerstick) 375 mg/dL (70-99) Review All relevant outside records, renal labs, imaging studies, telemetry/EKG's were reviewed. Images Images CTA done in the ER IMPRESSION: 1. No evidence of pulmonary embolism. 2. Multifocal bilateral patchy groundglass opacities, consistent with known Covid 19 pneumonia. MANJU HILL MD Aug 27, 2021 11:58
--- NOTE | 2021-08-27 12:06 | CONS ---
DATE OF CONSULTATION: 08/27/2021 REFERRING PHYSICIAN: Dr. Blanca. REASON FOR CONSULTATION: Sepsis, severe metabolic acidosis. HISTORY OF PRESENT ILLNESS: A 60-year-old female with history of diabetes, recently diagnosed with COVID about 2 weeks ago, who had been into multiple different emergency rooms, presented to [facility] ED with complaints of shortness of breath and cough.Pt is currently intubated in ICU on levophed.HIstory obtained from staff and medical chart.In ED pt was afebrile. White count was 12.4, bicarbonate of 7, creatinine of 1.0. Troponin was normal. Lactate was 1.6, glucose of 144. UA showed glycosuria, small blood, no wbc's. Salicylate level was 8.4. Chest x-ray revealed patchy bilateral opacities, which could represent multifocal infection or edema. Chest CT showed no evidence of pulmonary embolism, multifocal bilateral patchy ground glass opacities consistent with known COVID pneumonia. The patient underwent intubation with art line and central line placement this morning, enteric tube was placed. The patient received ceftriaxone in the ER, currently is on Zosyn and doxycycline, also on bicarbonate drip. ID consultation has been requested for antibiotic management. The patient remains on Levophed. Glucose this morning is 397. PAST MEDICAL HISTORY: Diabetes. PAST SURGICAL HISTORY: as per HPI ALLERGIES: None. SOCIAL HISTORY: No smoking or alcohol.Lives at home REVIEW OF SYSTEMS: Unable to obtain. CURRENT MEDICATIONS: Zosyn, doxycycline, Levophed, and Solu-Medrol. Other medications reviewed in medication list. PHYSICAL EXAMINATION: VITAL SIGNS: Temperature 97.8, pulse 100, respiratory rate 20, blood pressure 93/52, oxygen saturation 99% on ventilator. GENERAL: Intubated and sedated. HEENT: ETT, OGT tube in place. Normocephalic, atraumatic. Anicteric. NECK: Supple. LUNGS: Decreased breath sound. HEART: S1, S2. No murmurs. ABDOMEN: Soft, nondistended, bowel sounds present.No grimacing on deep palpation GENITOURINARY: Jack in place. EXTREMITIES: No pitting edema. DERMATOLOGIC: Warm, dry. No generalized rash. CENTRAL NERVOUS SYSTEM: Intubated and sedated. PSYCHIATRIC: Unable to assess. LINES: Right IJ clean. Art line clean. PIV clean. LABORATORY DATA: WBC 28.9, hemoglobin 13.7, hematocrit 43.1, platelets 358. Sodium 140, potassium 4.0, chloride 108, bicarbonate 7, BUN 17, creatinine 1.0, glucose 144, calcium 8.6.Lactic acid 1.6. Troponin 8. UA shows glycosuria, wbc's is 0. Salicylate 8.4. IMAGING: Chest x-ray as above. Chest CTA as above. Repeat chest x-ray as above. MICRO: None. IMPRESSION: 1. Severe sepsis.Appears Multifactorial. Afebrile 2. Acute hypoxic respiratory failure, status post intubation. 3. Severe metabolic acidosis. Lactate was 1.6. 4. Diabetes mellitus.Glycosuria, hyperglycemia, likely etiology appears to be diabetic ketoacidosis. 5. COVID-19 positive [employer] for 10-15 days with abnormal chest x-ray and CTA, 6. Leukocytosis, on steroids. 7. Elevated D-dimer.CTA negative for PE RECOMMENDATIONS: 1. Continue Zosyn and doxycycline. 2. On bicarbonate drip. 3. Obtain blood culture. 4. Agree with obtaining CT abdomen and pelvis if metabolic acidosis does not improve with bicarbonate treatment. 5. COVID management per primary, on Steroids 7. Monitor labs and cultures. Discussed with nursing staff.Discussed with DR Blanca Thank you, Dr. Blanca, for consulting Infectious Disease to participate in this patient's care. If you have any questions, do not hesitate to contact me. [facility] [place] : [place] TID: [id number] [facility]
[2021-08-27] MEDS: SODIUM BICARB ADULT 8.4% 50 MEQ/50 ML DISP.SYRIN. IV SCH ×4 (12:23→16:07)
[2021-08-27 12:37] LABS: BASE EXCESS ABG -18 mmol/L (-3-3); HCO3 ABG 11 mmol/L (21-28); PCO2 ABG 33 mmHg (35-46); PO2 ABG 85 mmHg (65-108); SAT O2 ABG 96 % (92-99)
[2021-08-27] MEDS ORDERED: SODIUM BICARBONATE VIAL 100 MEQ in IV DEXTROSE 5% 1,000 ML IV SCH (13:00)
[2021-08-27 13:12] LABS: CALCIUM 6.9 mg/dL (8.5-10.1); CREATININE 1.1 mg/dL (0.6-1.0); GFR 50.3; MAGNESIUM 1.8 mg/dL (1.8-2.4); PHOSPHORUS 1.8 mg/dL (2.6-4.7); POTASSIUM 3.2 mmol/L (3.5-5.1)
[2021-08-27] MEDS ORDERED: IV DEXTROSE 5% 1,000 ML IV SCH (13:30)
--- NOTE | 2021-08-27 13:30 | PDOC ---
GENERAL General: Patient examined chart reviewed, case discussed with nursing and Dr. Freedman of nephrology. Today's hospital day 2 for this patient with acute hypoxic re spiratory failure secondary to COVID-pneumonia. She has been ill for about 10 days and went to multiple emergency departments in [place] [facility], continued to clinically worsen. Was admitted with severe metabolic acidosis admission bicarbonate of 6. Her pH prior to transfer this morning to the intensive care unit was 6.96. She has improved already through the day relative to the metabolic acidosis on bicarbonate infusion. Per Dr. Freedman we will continue to run that and follow her metabolic panel closely. Appreciate subspecialty support. Nephrology is suspecting adverse effect from Jardiance as the cause of the metabolic acidosis along with diabetic ketoacidosis. Patient is on an insulin infusion and remains significantly hyperglycemic. She is on a bicarb D5 infusion and we will continue that at this point unless her hyperglycemia persists we can then switch to a bicarb free water infusion or even CRRT if her bicarbonate levels do not improve. Contributing to the hyperglycemia is also the steroid treatment for her COVID pneumonitis. We will continue current management otherwise. Time spent today is 30 minutes with greater than 50% in counseling and coordination of care most of which in discussion with medical team and extensive review of medical records regarding care plan and progress. Problems: (1) Acute respiratory failure with hypoxia (2) Pneumonia due to COVID-19 virus (3) Metabolic acidosis (4) Diabetic ketoacidosis VITAL SIGNS Vital Signs/I&O: Vital Signs Date Time Temp Pulse Resp B/P (MAP) Pulse Ox O2 Delivery O2 Flow Rate FiO2 08/27/21 12:00 90 08/27/21 10:53 99 Ventilator 08/27/21 07:29 93/52 (66) 08/27/21 07:00 97.6 20 97.6 08/27/21 06:26 5.0 I & O 08/26/21 08/26/21 08/27/21 15:00 23:00 07:00 Intake Total 1918 ml Output Total 500 ml 2450 ml Balance -500 ml -532 ml Patient is intubated and sedated unresponsive on the ventilator HEENT exam is unremarkable for acute abnormality Neck is soft and supple no adenopathy or thyromegaly noted Chest bilateral equal air entry though diminished throughout no crackles or wheezes are noted Heart S1-S2 normal regular rate and rhythm no murmurs or gallops and had Abdomen soft nontender nondistended no masses organomegaly noted Extremity exam is unremarkable for acute abnormality ALLERGIES Allergies: Allergies Coded Allergies Type Severity Reaction Last Updated Verified No Known Drug Allergies 08/26/21 No MEDS Medications: Current Medications Medications (Trade) Dose Ordered Sig/Silvia Start Time Stop Time Status Last Admin Dose Admin Ceftriaxone Sodium (Rocephin) 1 gm Q24H 08/26/21 21:00 08/27/21 00:25 DC 08/26/21 22:22 Dexamethasone Sodium Phosphate (Decadron) 10 mg 1X ONCE 08/26/21 16:00 08/26/21 16:01 DC 08/26/21 16:00 Doxycycline Hyclate 100 mg/ Dextrose 100 ml @ 50 mls/hr Q12HR 08/26/21 21:00 08/27/21 08:58 Enoxaparin Sodium (Lovenox 40mg Syringe) 40 mg DAILY 08/27/21 09:00 08/27/21 08:52 Fentanyl Citrate 30 ml @ 2.5 mls/hr CONT PRN 08/27/21 05:30 08/27/21 06:26 Info (CONTRAST GIVEN -- Rx MONITORING) 1 each PRN DAILY PRN 08/26/21 16:30 08/28/21 16:29 Insulin Human Regular 100 unit/ Sodium Chloride 101 ml @ 0 mls/hr CONT PRN PRN 08/27/21 09:30 08/27/21 10:18 Iohexol (Omnipaque 350 Mg/ml) 90 ml 1X ONCE 08/26/21 16:30 08/26/21 16:31 DC 08/26/21 16:41 Methylprednisolone Sodium Succinate (SOLU-Medrol 40MG VIAL) 40 mg BID 08/26/21 21:00 08/27/21 08:51 Midazolam HCl (Versed) 5 mg PRN 1X PRN 08/27/21 05:30 08/28/21 05:29 Multivitamins (Thera M Plus) 1 tab DAILY 08/27/21 09:00 08/27/21 08:51 Norepinephrine Bitartrate 8 mg/ Dextrose 258 ml @ 12.984 mls/ hr CONT PRN 08/27/21 08:00 Piperacillin Sod/ Tazobactam Sod (Zosyn Per Pharmacy) 1 each PRN DAILY PRN 08/27/21 00:30 Piperacillin Sod/ Tazobactam Sod 4.5 gm/Dextrose 100 ml @ 200 mls/hr Q6HRS 08/27/21 01:00 08/27/21 11:13 Potassium Chloride/Water 100 ml @ 100 mls/hr Q1H 08/27/21 10:00 08/27/21 11:59 DC 08/27/21 11:13 Propofol 100 ml @ 2.013 mls/ hr CONT PRN 08/27/21 05:30 Sodium Bicarbonate 100 meq/Dextrose 1,100 ml @ 200 mls/hr Q5H30M 08/27/21 13:00 08/27/21 12:25 Sodium Bicarbonate 150 meq/Dextrose 1,150 ml @ 200 mls/hr Q5H45M 08/27/21 06:30 08/27/21 11:58 DC 08/27/21 06:30 Sodium Bicarbonate 50 meq/Sodium Chloride 1,050 ml @ 200 mls/hr Q5H15M 08/26/21 21:00 08/26/21 23:59 DC Sodium Bicarbonate (Sodium Bicarb Adult 8.4% Syr) 50 meq Q1HR 08/27/21 12:00 08/27/21 15:01 08/27/21 12:23 Sodium Chloride 1,000 ml @ 250 mls/hr Q4H 08/27/21 10:00 08/27/21 11:58 DC 08/27/21 10:18 Vecuronium [place] (Norcuron Bolus) 6 mg PRN 1X PRN 08/27/21 05:30 08/27/21 06:28 DC 08/27/21 06:28 Current Medications Medications (Trade) Dose Ordered Sig/Silvia Route PRN Reason Start Time Stop Time Status Last Admin Dose Admin Sodium Chloride 1,000 ml @ 1,000 mls/hr 1X ONCE IV 08/26/21 15:15 08/26/21 16:14 DC 08/26/21 15:15 Dexamethasone Sodium Phosphate (Decadron) 10 mg 1X ONCE IV 08/26/21 16:00 08/26/21 16:01 DC 08/26/21 16:00 Iohexol (Omnipaque 350 Mg/ml) 90 ml 1X ONCE IV 08/26/21 16:30 08/26/21 16:31 DC 08/26/21 16:41 Sodium Bicarbonate 50 meq/Sodium Chloride 1,050 ml @ 100 mls/hr [id number] IV 08/26/21 19:00 08/26/21 21:03 DC 08/26/21 18:32 Methylprednisolone Sodium Succinate (SOLU-Medrol 40MG VIAL) 40 mg BID IV 08/26/21 21:00 08/27/21 08:51 Ceftriaxone Sodium (Rocephin) 1 gm Q24H IVP 08/26/21 21:00 08/27/21 00:25 DC 08/26/21 22:22 Doxycycline Hyclate 100 mg/ Dextrose 100 ml @ 50 mls/hr Q12HR IV 08/26/21 21:00 08/27/21 08:58 Enoxaparin Sodium (Lovenox 40mg Syringe) 40 mg DAILY SQ 08/27/21 09:00 08/27/21 08:52 Multivitamins (Thera M Plus) 1 tab DAILY PO 08/27/21 09:00 08/27/21 08:51 Sodium Bicarbonate 150 meq/Dextrose 1,150 ml @ 200 mls/hr Q5H45M ONCE IV 08/27/21 00:00 08/27/21 05:44 DC 08/26/21 23:54 Piperacillin Sod/ Tazobactam Sod 4.5 gm/Dextrose 100 ml @ 200 mls/hr Q6HRS IV 08/27/21 01:00 08/27/21 11:13 Fentanyl Citrate 30 ml @ 2.5 mls/hr CONT PRN IV SEE PROTOCOL 08/27/21 05:30 08/27/21 06:26 Midazolam HCl 100 ml @ 1 mls/hr CONT PRN IV SEE PROTOCOL 08/27/21 05:30 08/27/21 06:27 Vecuronium [place] (Norcuron Bolus) 6 mg PRN 1X PRN IV VENT INDUCTION 08/27/21 05:30 08/27/21 06:28 DC 08/27/21 06:28 Sodium Bicarbonate 150 meq/Dextrose 1,150 ml @ 200 mls/hr Q5H45M IV 08/27/21 06:30 08/27/21 11:58 DC 08/27/21 06:30 Sodium Bicarbonate (Sodium Bicarb Adult 8.4% Syr) 50 meq 1X ONCE IV 08/27/21 08:30 08/27/21 08:31 DC 08/27/21 08:49 Insulin Human Regular 100 unit/ Sodium Chloride 101 ml @ 0 mls/hr CONT PRN PRN IV PER PROTOCOL 08/27/21 09:30 08/27/21 10:18 Potassium Chloride/Water 100 ml @ 100 mls/hr Q1H IV 08/27/21 10:00 08/27/21 11:59 DC 08/27/21 11:13 Sodium Chloride 1,000 ml @ 250 mls/hr Q4H IV 08/27/21 10:00 08/27/21 11:58 DC 08/27/21 10:18 Sodium Bicarbonate 100 meq/Dextrose 1,100 ml @ 200 mls/hr Q5H30M IV 08/27/21 13:00 08/27/21 12:25 Sodium Bicarbonate (Sodium Bicarb Adult 8.4% Syr) 50 meq Q1HR IV 08/27/21 12:00 08/27/21 15:01 08/27/21 12:23 LAB Lab: Laboratory Tests Test 08/26/21 14:45 08/26/21 15:30 08/26/21 15:45 08/26/21 23:02 White Blood Count 12.4 x10^3/uL (4.0-11.0) H Red Blood Count 5.01 x10^6/uL (3.50-5.40) Hemoglobin 14.3 g/dL (12.0-15.5) Hematocrit 45.0 % (36.0-47.0) Mean Corpuscular Volume 90 fL (79-100) Mean Corpuscular Hemoglobin 29 pg (25-35) Mean Corpuscular Hemoglobin Concent 32 g/dL (31-37) Red Cell Distribution Width 16.3 % (11.5-14.5) H Platelet Count 211 x10^3/uL (140-400) Neutrophils (%) (Auto) 90 % (31-73) H Lymphocytes (%) (Auto) 7 % (24-48) L Monocytes (%) (Auto) 3 % (0-9) Eosinophils (%) (Auto) 0 % (0-3) Basophils (%) (Auto) 0 % (0-3) Neutrophils # (Auto) 11.1 x10^3/uL (1.8-7.7) H Lymphocytes # (Auto) 0.9 x10^3/uL (1.0-4.8) L Monocytes # (Auto) 0.4 x10^3/uL (0.0-1.1) Eosinophils # (Auto) 0.0 x10^3/uL (0.0-0.7) Basophils # (Auto) 0.0 x10^3/uL (0.0-0.2) Segmented Neutrophils % 61 % (35-66) Band Neutrophils % 25 % (0-9) H Lymphocytes % 12 % (24-48) L Basophils % 2 % (0-3) Platelet Estimate Adequate (ADEQUATE) Large Platelets Present Polychromasia Present Poikilocytosis Slight Spherocytes Occ Ovalocytes Occ Crenated Cell Present D-Dimer (Ailin) 4.51 ug/mlFEU (0.00-0.50) H Sodium Level 140 mmol/L (136-145) Potassium Level 4.2 mmol/L (3.5-5.1) Chloride Level 108 mmol/L (98-107) H Carbon Dioxide Level 7 mmol/L (21-32) *L Anion Gap 25 (6-14) H Blood Urea Nitrogen 17 mg/dL (7-20) Creatinine 1.0 mg/dL (0.6-1.0) Estimated GFR (Cockcroft-Gault) 56.2 Glucose Level 144 mg/dL (70-99) H Calcium Level 8.6 mg/dL (8.5-10.1) Troponin I High Sensitivity 8 ng/L (4-50) Lactic Acid Level 1.6 mmol/L (0.4-2.0) O2 Saturation 93 % (92-99) 94 % (92-99) Arterial Blood pH 7.17 (7.35-7.45) *L 7.00 (7.35-7.45) *L Arterial Blood pCO2 at Patient Temp < 15 mmHg (35-46) *L 15 mmHg (35-46) *L Arterial Blood pO2 at Patient Temp 71 mmHg (65-108) 84 mmHg (65-108) Arterial Blood HCO3 5 mmol/L (21-28) L 4 mmol/L (21-28) L Arterial Blood Base Excess -21 mmol/L (-3-3) L -26 mmol/L (-3-3) L FiO2 21/ra Ra Test 08/27/21 01:40 08/27/21 03:57 08/27/21 04:38 08/27/21 06:45 White Blood Count 27.1 x10^3/uL (4.0-11.0) H Red Blood Count 5.13 x10^6/uL (3.50-5.40) Hemoglobin 14.7 g/dL (12.0-15.5) Hematocrit 46.7 % (36.0-47.0) Mean Corpuscular Volume 91 fL (79-100) Mean Corpuscular Hemoglobin 29 pg (25-35) Mean Corpuscular Hemoglobin Concent 32 g/dL (31-37) Red Cell Distribution Width 17.3 % (11.5-14.5) H Platelet Count 352 x10^3/uL (140-400) Neutrophils (%) (Auto) 91 % (31-73) H Lymphocytes (%) (Auto) 5 % (24-48) L Monocytes (%) (Auto) 4 % (0-9) Eosinophils (%) (Auto) 0 % (0-3) Basophils (%) (Auto) 0 % (0-3) Neutrophils # (Auto) 24.7 x10^3/uL (1.8-7.7) H Lymphocytes # (Auto) 1.4 x10^3/uL (1.0-4.8) Monocytes # (Auto) 1.0 x10^3/uL (0.0-1.1) Eosinophils # (Auto) 0.0 x10^3/uL (0.0-0.7) Basophils # (Auto) 0.1 x10^3/uL (0.0-0.2) Segmented Neutrophils % 81 % (35-66) H Band Neutrophils % 10 % (0-9) H Lymphocytes % 7 % (24-48) L Monocytes % 2 % (0-10) Toxic Granulation Slight Platelet Estimate Adequate (ADEQUATE) Anisocytosis Slight Sodium Level 145 mmol/L (136-145) Potassium Level 4.8 mmol/L (3.5-5.1) Chloride Level 110 mmol/L (98-107) H Carbon Dioxide Level 6 mmol/L (21-32) *L Anion Gap 29 (6-14) H Blood Urea Nitrogen 26 mg/dL (7-20) H Creatinine 1.0 mg/dL (0.6-1.0) Estimated GFR (Cockcroft-Gault) 56.2 Glucose Level 261 mg/dL (70-99) H Calcium Level 7.9 mg/dL (8.5-10.1) L Salicylates Level 8.4 mg/dL (2.8-20.0) Salicylate Last Dose Date Unk Salicylate Last Dose Time Unk Glucose (Fingerstick) 266 mg/dL (70-99) H O2 Saturation 90 % (92-99) L Arterial Blood pH 7.06 (7.35-7.45) *L Arterial Blood pCO2 at Patient Temp 15 mmHg (35-46) *L Arterial Blood pO2 at Patient Temp 62 mmHg (65-108) L Arterial Blood HCO3 4 mmol/L (21-28) L Arterial Blood Base Excess -24 mmol/L (-3-3) L FiO2 40 (5l nc) Urine Collection Type Unknown Urine Color Yellow Urine Clarity Cloudy Urine pH 5.0 (<5.0-8.0) Urine Specific [place] 1.025 (1.000-1.030) Urine Protein 30 mg/dL (NEG-TRACE) Urine Glucose (UA) >=1000 mg/dL (NEG) Urine Ketones (Stick) >=80 mg/dL (NEG) Urine Blood Small (NEG) Urine Nitrite Negative (NEG) Urine Bilirubin Negative (NEG) Urine Urobilinogen Dipstick 0.2 mg/dL (0.2 mg/dL) Urine Leukocyte Esterase Negative (NEG) Urine RBC 1-2 /HPF (0-2) Urine WBC 0 /HPF (0-4) Urine Squamous Epithelial Cells Occ /LPF Urine Bacteria 0 /HPF (0-FEW) Urine Hyaline Casts Occasional /HPF Urine Granular Casts Few /HPF Urine Mucus Mod /LPF Test 08/27/21 08:00 08/27/21 08:15 08/27/21 11:21 08/27/21 12:01 O2 Saturation 99 % (92-99) 96 % (92-99) Arterial Blood pH 6.95 (7.35-7.45) *L 7.13 (7.35-7.45) *L Arterial Blood pCO2 at Patient Temp 37 mmHg (35-46) 33 mmHg (35-46) L Arterial Blood pO2 at Patient Temp 204 mmHg (65-108) H 85 mmHg (65-108) Arterial Blood HCO3 8 mmol/L (21-28) L 11 mmol/L (21-28) L Arterial Blood Base Excess -24 mmol/L (-3-3) L -18 mmol/L (-3-3) L FiO2 100/vent 70/vent White Blood Count 28.9 x10^3/uL (4.0-11.0) H Red Blood Count 4.81 x10^6/uL (3.50-5.40) Hemoglobin 13.7 g/dL (12.0-15.5) Hematocrit 43.1 % (36.0-47.0) Mean Corpuscular Volume 90 fL (79-100) Mean Corpuscular Hemoglobin 28 pg (25-35) Mean Corpuscular Hemoglobin Concent 32 g/dL (31-37) Red Cell Distribution Width 16.9 % (11.5-14.5) H Platelet Count 358 x10^3/uL (140-400) Neutrophils (%) (Auto) 91 % (31-73) H Lymphocytes (%) (Auto) 5 % (24-48) L Monocytes (%) (Auto) 4 % (0-9) Eosinophils (%) (Auto) 0 % (0-3) Basophils (%) (Auto) 0 % (0-3) Neutrophils # (Auto) 26.2 x10^3/uL (1.8-7.7) H Lymphocytes # (Auto) 1.3 x10^3/uL (1.0-4.8) Monocytes # (Auto) 1.3 x10^3/uL (0.0-1.1) H Eosinophils # (Auto) 0.0 x10^3/uL (0.0-0.7) Basophils # (Auto) 0.1 x10^3/uL (0.0-0.2) Sodium Level 146 mmol/L (136-145) H Potassium Level 3.8 mmol/L (3.5-5.1) # Chloride Level 110 mmol/L (98-107) H Carbon Dioxide Level 10 mmol/L (21-32) *L Anion Gap 26 (6-14) H Blood Urea Nitrogen 31 mg/dL (7-20) H Creatinine 1.3 mg/dL (0.6-1.0) H Estimated GFR (Cockcroft-Gault) 41.5 BUN/Creatinine Ratio 24 (6-20) H Glucose Level 397 mg/dL (70-99) H Calcium Level 7.8 mg/dL (8.5-10.1) L Phosphorus Level 3.9 mg/dL (2.6-4.7) Magnesium Level 2.2 mg/dL (1.8-2.4) Total Bilirubin 0.6 mg/dL (0.2-1.0) Aspartate Amino Transferase (AST) 85 U/L (15-37) H Alanine Aminotransferase (ALT) 47 U/L (14-59) Alkaline Phosphatase 139 U/L (46-116) H Total Protein 6.1 g/dL (6.4-8.2) L Albumin 2.2 g/dL (3.4-5.0) L Albumin/Globulin Ratio 0.6 (1.0-1.7) L Glucose (Fingerstick) 375 mg/dL (70-99) H Test 08/27/21 12:30 08/27/21 12:40 Glucose (Fingerstick) 325 mg/dL (70-99) H Sodium Level 162 mmol/L (136-145) #*H Potassium Level 3.2 mmol/L (3.5-5.1) L Chloride Level 115 mmol/L (98-107) H Carbon Dioxide Level 22 mmol/L (21-32) Anion Gap 25 (6-14) H Blood Urea Nitrogen 28 mg/dL (7-20) H Creatinine 1.1 mg/dL (0.6-1.0) H Estimated GFR (Cockcroft-Gault) 50.3 Glucose Level 348 mg/dL (70-99) H Calcium Level 6.9 mg/dL (8.5-10.1) L Phosphorus Level 1.8 mg/dL (2.6-4.7) L Magnesium Level 1.8 mg/dL (1.8-2.4) Laboratory Tests 08/26/21 14:45 08/27/21 01:40 08/27/21 08:15 Laboratory Tests 08/26/21 14:45 08/27/21 01:40 08/27/21 08:15 08/27/21 12:40 ASSESSMENT & PLAN A&P Plan as noted above This note was created using eyeQ and may have omissions and/or errors due to the nature of real-time voice hide mill man. Justifications for Admission Other Justification PREMA CHADWICK MD Aug 27, 2021 13:30
[2021-08-27] MEDS ORDERED: MAGNESIUM SULFATE 2GM 50 ML IV ONE (14:00)
[2021-08-27] MEDS ORDERED: POTASSIUM CHLORIDE 20MEQ 100 ML IV SCH (14:00)
[2021-08-27] MEDS ORDERED: POTASSIUM CHLORIDE 20MEQ 100 ML IV ONE ×2 (15:00→19:00)
[2021-08-27] MEDS ORDERED: POTASSIUM PHOSPHATE DIBASIC 15 MMOL in IV NS 100 ML IV ONE ×2 (15:00→18:30)
[2021-08-27 17:46] LABS: CREATININE 1.1 mg/dL (0.6-1.0); GFR 50.3; MAGNESIUM 2.4 mg/dL (1.8-2.4); PHOSPHORUS 0.8 mg/dL (2.6-4.7); POTASSIUM 3.3 mmol/L (3.5-5.1)
[2021-08-27 21:57] LABS: CALCIUM 7.1 mg/dL (8.5-10.1); CREATININE 1.1 mg/dL (0.6-1.0); GFR 50.3; POTASSIUM 3.5 mmol/L (3.5-5.1)
[2021-08-27 22:02] LABS: ALBUMIN 1.7 g/dL (3.4-5.0); ALBUMIN/GLOBULIN RATIO 0.5 (1.0-1.7); MAGNESIUM 2.4 mg/dL (1.8-2.4); PHOSPHORUS 1.3 mg/dL (2.6-4.7); TOTAL BILIRUBIN 0.5 mg/dL (0.2-1.0); TOTAL PROTEIN 4.9 g/dL (6.4-8.2)
[2021-08-27] MEDS ORDERED: DEXTROSE 50% 25 GM / 50ML DISP.SYRIN. IV PRN (22:30)
[2021-08-27] MEDS: POTASSIUM PHOS,M-BASIC-D-BASIC 15 MMOL in IV NORMAL SALINE 100ML 100 ML IV SCH (23:00)
[2021-08-27] MEDS: INSULIN GLARGINE SYRINGE. SQ SCH (23:00)
[2021-08-27] MEDS: INSULIN LISPRO 300 UNITS/3 ML VIAL. SQ SCH (23:37)
[2021-08-28] VITALS (28 sets, daily range): BP systolic 85–120; BP diastolic 47–67
[2021-08-28] MEDS: POTASSIUM PHOS,M-BASIC-D-BASIC 15 MMOL in IV NORMAL SALINE 100ML 100 ML IV SCH (01:56)
[2021-08-28] MEDS: INSULIN LISPRO 300 UNITS/3 ML VIAL. SQ SCH ×9 (06:00→23:55)
[2021-08-28] MEDS: PIPERACILLIN/TAZOBACTAM 4.5 GM in IV DEXTROSE 5% 100ML 100 ML IV SCH ×4 (06:00→23:48)
[2021-08-28] MEDS: LEVOTHYROXINE 150 MCG TABLET PO SCH (06:01)
[2021-08-28 06:40] LABS: BASO % 0 % (0-3); CALCIUM 7.2 mg/dL (8.5-10.1); CREATININE 0.8 mg/dL (0.6-1.0); EOS % 0 % (0-3); GFR 72.7; HEMATOCRIT 32.8 % (36.0-47.0); HEMOGLOBIN 11.1 g/dL (12.0-15.5); LYMPH # 0.5 x10^3/uL (1.0-4.8); LYMPH % 3 % (24-48); MEAN CORPUSCULAR HEMOGLOBIN 28 pg (25-35); MEAN CORPUSCULAR HGB CONC 34 g/dL (31-37); MEAN CORPUSCULAR VOLUME 83 fL (79-100); MONO # 0.8 x10^3/uL (0.0-1.1); MONO % 5 % (0-9); NEUT # 15.6 x10^3/uL (1.8-7.7); NEUT % 92 % (31-73); PLATELET COUNT 273 x10^3/uL (140-400); POTASSIUM 3.8 mmol/L (3.5-5.1); RED BLOOD COUNT 3.96 x10^6/uL (3.50-5.40); RED CELL DISTRIBUTION WIDTH 15.5 % (11.5-14.5); WHITE BLOOD COUNT 16.9 x10^3/uL (4.0-11.0)
[2021-08-28 07:45] LABS: BASE EXCESS ABG 0 mmol/L (-3-3); HCO3 ABG 23 mmol/L (21-28); PCO2 ABG 32 mmHg (35-46); PO2 ABG 63 mmHg (65-108); SAT O2 ABG 94 % (92-99)
[2021-08-28 08:21] LABS: FIO2 ABG 100/pcv 18 28 +10
--- NOTE | 2021-08-28 08:32 | PDOC ---
DATE OF SERVICE: DOS: DATE: 08/28/21 TIME: 08:27 SUBJECTIVE ROS Initially consulted for abnormal ABG Patient remains sedated intubated on the ventilator. Was given a significant amount of bicarb yesterday. Acidosis corrected with bicarb administration and hence fluids were changed over to half NS due to mildly elevated sodium levels. Unable to get review of systems from the patient OBJECTIVE Vital Signs Vital Signs Date Time Temp Pulse Resp B/P (MAP) Pulse Ox O2 Delivery O2 Flow Rate FiO2 08/28/21 07:36 99 Ventilator 08/28/21 07:00 88 24 93/53 08/28/21 05:39 5.0 08/28/21 04:00 98.3 98.3 I & 0 Intake and Output 08/28/21 07:00 Intake Total 5130.88 ml Output Total 4300 ml Balance 830.88 ml Intake IV Total 4598.88 ml Tube Feeding 332 ml Other 200 ml Output Urine Total 4300 ml PHYSICAL EXAM Physical Exam Patient remains minimally sedated and orally intubated and on the ventilator. She does appear to be moving her upper extremities Rest of the physical exam is limited due to COVID-19 respiratory isolation. DIAGNOSIS/ASSESSMENT Assessment & Plan Wide anion gap metabolic acidosis with elevated ketones: Gap appears to have closed at this time. Bicarb levels normalized with bicarb supplementation yesterday Acute kidney injury presumably associated with intravascular volume depletion, hypotension, contrast nephropathy: Creatinine now normal 1 good urine output. Now off of IV fluids Hypotension on minimal pressors. Reevaluate with weaning of sedation Some dilutional anemia as noted Mildly elevated sodium levels: Patient started on tube feeds with free water. Watch trend. Anticipate improvement by tomorrow Known underlying diabetes: Most recent A1c is not known COVID-19 positivity COMMENT/RELEVANT DATA Meds Current Medications Medications (Trade) Dose Ordered Sig/Silvia Start Time Stop Time Status Last Admin Dose Admin Ceftriaxone Sodium (Rocephin) 1 gm Q24H 08/26/21 21:00 08/27/21 00:25 DC 08/26/21 22:22 1 GM Dexamethasone Sodium Phosphate (Decadron) 10 mg 1X ONCE 08/26/21 16:00 08/26/21 16:01 DC 08/26/21 16:00 10 MG Dextrose (Dextrose 50%-Water Syringe) 12.5 gm PRN Q15MIN PRN 08/27/21 22:30 Doxycycline Hyclate 100 mg/ Dextrose 100 ml @ 50 mls/hr Q12HR 08/26/21 21:00 08/27/21 21:33 50 MLS/HR Enoxaparin Sodium (Lovenox 40mg Syringe) 40 mg DAILY 08/27/21 09:00 08/27/21 08:52 40 MG Fentanyl Citrate 30 ml @ 2.5 mls/hr CONT PRN 08/27/21 05:30 08/28/21 04:20 2.5 MLS/HR Info (CONTRAST GIVEN -- Rx MONITORING) 1 each PRN DAILY PRN 08/26/21 16:30 08/28/21 16:29 Insulin Glargine (Lantus Syringe) 25 unit QHS 08/27/21 23:00 08/27/21 23:00 25 UNIT Insulin Human Lispro (HumaLOG) 5 units Q6HRS 08/28/21 00:00 08/28/21 06:00 5 UNITS Insulin Human Regular 100 unit/ Sodium Chloride 101 ml @ 0 mls/hr CONT PRN PRN 08/27/21 09:30 08/27/21 17:07 19.5 MLS/HR Iohexol (Omnipaque 350 Mg/ml) 90 ml 1X ONCE 08/26/21 16:30 08/26/21 16:31 DC 08/26/21 16:41 90 ML Levothyroxine Sodium (Synthroid) 150 mcg DAILY06 08/28/21 06:00 08/28/21 06:01 150 MCG Magnesium Sulfate 50 ml @ 25 mls/hr 1X ONCE 08/27/21 14:00 08/27/21 15:59 DC 08/27/21 13:56 25 MLS/HR Methylprednisolone Sodium Succinate (SOLU-Medrol 40MG VIAL) 40 mg BID 08/26/21 21:00 08/27/21 17:06 DC 08/27/21 08:51 40 MG Midazolam HCl (Versed) 5 mg PRN 1X PRN 08/27/21 05:30 08/28/21 05:29 DC Multivitamins (Thera M Plus) 1 tab DAILY 08/27/21 09:00 08/27/21 08:51 1 TAB Norepinephrine Bitartrate 8 mg/ Dextrose 258 ml @ 12.984 mls/ hr CONT PRN 08/27/21 08:00 08/27/21 13:19 12.984 MLS/HR Piperacillin Sod/ Tazobactam Sod (Zosyn Per Pharmacy) 1 each PRN DAILY PRN 08/27/21 00:30 Piperacillin Sod/ Tazobactam Sod 4.5 gm/Dextrose 100 ml @ 200 mls/hr Q6HRS 08/27/21 01:00 08/28/21 06:00 200 MLS/HR Potassium Chloride/Water 100 ml @ 100 mls/hr 1X ONCE 08/27/21 19:00 08/27/21 19:59 DC 08/27/21 19:28 100 MLS/HR Potassium Phosphate 15 mmol/ Sodium Chloride 105 ml @ 52.5 mls/hr Q2H 08/27/21 23:00 08/28/21 02:59 DC 08/28/21 01:56 52.5 MLS/HR Propofol 100 ml @ 2.013 mls/ hr CONT PRN 08/27/21 05:30 Sodium Bicarbonate 100 meq/Dextrose 1,100 ml @ 200 mls/hr Q5H30M 08/27/21 13:00 08/27/21 18:44 DC 08/27/21 12:25 200 MLS/HR Sodium Bicarbonate 150 meq/Dextrose 1,150 ml @ 200 mls/hr Q5H45M 08/27/21 06:30 08/27/21 11:58 DC 08/27/21 06:30 200 MLS/HR Sodium Bicarbonate 50 meq/Sodium Chloride 1,050 ml @ 200 mls/hr Q5H15M 08/26/21 21:00 08/26/21 23:59 DC Sodium Bicarbonate (Sodium Bicarb Adult 8.4% Syr) 50 meq Q1HR 08/27/21 12:00 08/27/21 15:01 DC 08/27/21 16:07 50 MEQ Sodium Chloride 1,000 ml @ 250 mls/hr Q4H 08/27/21 18:00 08/27/21 22:48 DC 08/27/21 18:14 250 MLS/HR Vecuronium [place] (Norcuron Bolus) 6 mg PRN 1X PRN 08/27/21 05:30 08/27/21 06:28 DC 08/27/21 06:28 6 MG Lab Laboratory Tests Test 08/27/21 11:21 08/27/21 12:01 08/27/21 12:30 08/27/21 12:40 Glucose (Fingerstick) 375 mg/dL (70-99) 325 mg/dL (70-99) O2 Saturation 96 % (92-99) Arterial Blood pH 7.13 (7.35-7.45) Arterial Blood pCO2 at Patient Temp 33 mmHg (35-46) Arterial Blood pO2 at Patient Temp 85 mmHg (65-108) Arterial Blood HCO3 11 mmol/L (21-28) Arterial Blood Base Excess -18 mmol/L (-3-3) FiO2 70/vent Sodium Level 162 mmol/L (136-145) Potassium Level 3.2 mmol/L (3.5-5.1) Chloride Level 115 mmol/L (98-107) Carbon Dioxide Level 22 mmol/L (21-32) Anion Gap 25 (6-14) Blood Urea Nitrogen 28 mg/dL (7-20) Creatinine 1.1 mg/dL (0.6-1.0) Estimated GFR (Cockcroft-Gault) 50.3 Glucose Level 348 mg/dL (70-99) Calcium Level 6.9 mg/dL (8.5-10.1) Phosphorus Level 1.8 mg/dL (2.6-4.7) Magnesium Level 1.8 mg/dL (1.8-2.4) Test 08/27/21 14:52 08/27/21 16:02 08/27/21 17:12 08/27/21 17:15 Glucose (Fingerstick) 346 mg/dL (70-99) 339 mg/dL (70-99) 337 mg/dL (70-99) Sodium Level 151 mmol/L (136-145) Potassium Level 3.3 mmol/L (3.5-5.1) Chloride Level 111 mmol/L (98-107) Carbon Dioxide Level 24 mmol/L (21-32) Anion Gap 16 (6-14) Blood Urea Nitrogen 22 mg/dL (7-20) Creatinine 1.1 mg/dL (0.6-1.0) Estimated GFR (Cockcroft-Gault) 50.3 Glucose Level 370 mg/dL (70-99) Calcium Level 7.0 mg/dL (8.5-10.1) Phosphorus Level 0.8 mg/dL (2.6-4.7) Magnesium Level 2.4 mg/dL (1.8-2.4) Test 08/27/21 18:22 08/27/21 19:28 08/27/21 20:35 08/27/21 20:40 Glucose (Fingerstick) 297 mg/dL (70-99) 229 mg/dL (70-99) 192 mg/dL (70-99) Sodium Level 152 mmol/L (136-145) Potassium Level 3.5 mmol/L (3.5-5.1) Chloride Level 112 mmol/L (98-107) Carbon Dioxide Level 26 mmol/L (21-32) Anion Gap 14 (6-14) Blood Urea Nitrogen 19 mg/dL (7-20) Creatinine 1.1 mg/dL (0.6-1.0) Estimated GFR (Cockcroft-Gault) 50.3 BUN/Creatinine Ratio 17 (6-20) Glucose Level 194 mg/dL (70-99) Calcium Level 7.1 mg/dL (8.5-10.1) Phosphorus Level 1.3 mg/dL (2.6-4.7) Magnesium Level 2.4 mg/dL (1.8-2.4) Total Bilirubin 0.5 mg/dL (0.2-1.0) Aspartate Amino Transf (AST/SGOT) 49 U/L (15-37) Alanine Aminotransferase (ALT/SGPT) 37 U/L (14-59) Alkaline Phosphatase 121 U/L (46-116) Total Protein 4.9 g/dL (6.4-8.2) Albumin 1.7 g/dL (3.4-5.0) Albumin/Globulin Ratio 0.5 (1.0-1.7) Test 08/27/21 21:31 08/27/21 22:33 08/27/21 23:30 08/28/21 01:41 Glucose (Fingerstick) 169 mg/dL (70-99) 166 mg/dL (70-99) 127 mg/dL (70-99) 161 mg/dL (70-99) Test 08/28/21 03:42 08/28/21 06:00 08/28/21 07:30 Glucose (Fingerstick) 192 mg/dL (70-99) White Blood Count 16.9 x10^3/uL (4.0-11.0) Red Blood Count 3.96 x10^6/uL (3.50-5.40) Hemoglobin 11.1 g/dL (12.0-15.5) Hematocrit 32.8 % (36.0-47.0) Mean Corpuscular Volume 83 fL (79-100) Mean Corpuscular Hemoglobin 28 pg (25-35) Mean Corpuscular Hemoglobin Concent 34 g/dL (31-37) Red Cell Distribution Width 15.5 % (11.5-14.5) Platelet Count 273 x10^3/uL (140-400) Neutrophils (%) (Auto) 92 % (31-73) Lymphocytes (%) (Auto) 3 % (24-48) Monocytes (%) (Auto) 5 % (0-9) Eosinophils (%) (Auto) 0 % (0-3) Basophils (%) (Auto) 0 % (0-3) Neutrophils # (Auto) 15.6 x10^3/uL (1.8-7.7) Lymphocytes # (Auto) 0.5 x10^3/uL (1.0-4.8) Monocytes # (Auto) 0.8 x10^3/uL (0.0-1.1) Eosinophils # (Auto) 0.0 x10^3/uL (0.0-0.7) Basophils # (Auto) 0.0 x10^3/uL (0.0-0.2) Sodium Level 147 mmol/L (136-145) Potassium Level 3.8 mmol/L (3.5-5.1) Chloride Level 112 mmol/L (98-107) Carbon Dioxide Level 24 mmol/L (21-32) Anion Gap 11 (6-14) Blood Urea Nitrogen 17 mg/dL (7-20) Creatinine 0.8 mg/dL (0.6-1.0) Estimated GFR (Cockcroft-Gault) 72.7 Glucose Level 157 mg/dL (70-99) Calcium Level 7.2 mg/dL (8.5-10.1) O2 Saturation 94 % (92-99) Arterial Blood pH 7.47 (7.35-7.45) Arterial Blood pCO2 at Patient Temp 32 mmHg (35-46) Arterial Blood pO2 at Patient Temp 63 mmHg (65-108) Arterial Blood HCO3 23 mmol/L (21-28) Arterial Blood Base Excess 0 mmol/L (-3-3) FiO2 100/pcv 18 28 +10 Results All relevant outside records, renal labs, imaging studies, telemetry/EKG's were reviewed. Justicifation of Admission Dx: Justifications for Admission: Justification of Admission Dx: N/A MANJU HILL MD Aug 28, 2021 08:32
[2021-08-28] MEDS ORDERED: MAGNESIUM SULFATE 2GM 50 ML IV PRN (08:45)
--- NOTE | 2021-08-28 09:30 | PDOC ---
Infectious Disease Note Subjective: Subjective Patient intubated/sedated On pressors Discussed with RN Vital Signs: Vital Signs Vital Signs Date Time Temp Pulse Resp B/P (MAP) Pulse Ox O2 Delivery O2 Flow Rate FiO2 08/28/21 07:36 99 Ventilator 08/28/21 07:00 88 24 93/53 08/28/21 05:39 5.0 08/28/21 04:00 98.3 98.3 Physical Exam: PHYSICAL EXAM GENERAL: Intubated and sedated. HEENT: ETT, OGT tube in place. Normocephalic, atraumatic. Anicteric. NECK: Supple. Right IJ blood tinged dressing LUNGS: Decreased breath sound. HEART: S1, S2. No murmurs. ABDOMEN: Soft, nondistended, bowel sounds present.No grimacing on deep palpation GENITOURINARY: Jack in place. EXTREMITIES: No pitting edema. DERMATOLOGIC: Warm, dry. No generalized rash. CENTRAL NERVOUS SYSTEM: Intubated and sedated. PSYCHIATRIC: Unable to assess. LINES: Right IJ otherwise no complications.. Art line clean. PIV clean. Medications: Inpatient Meds: Medications reviewed. Labs: Lab Laboratory Tests Test 08/27/21 11:21 08/27/21 12:01 08/27/21 12:30 08/27/21 12:40 Glucose (Fingerstick) 375 mg/dL (70-99) 325 mg/dL (70-99) O2 Saturation 96 % (92-99) Arterial Blood pH 7.13 (7.35-7.45) Arterial Blood pCO2 at Patient Temp 33 mmHg (35-46) Arterial Blood pO2 at Patient Temp 85 mmHg (65-108) Arterial Blood HCO3 11 mmol/L (21-28) Arterial Blood Base Excess -18 mmol/L (-3-3) FiO2 70/vent Sodium Level 162 mmol/L (136-145) Potassium Level 3.2 mmol/L (3.5-5.1) Chloride Level 115 mmol/L (98-107) Carbon Dioxide Level 22 mmol/L (21-32) Anion Gap 25 (6-14) Blood Urea Nitrogen 28 mg/dL (7-20) Creatinine 1.1 mg/dL (0.6-1.0) Estimated GFR (Cockcroft-Gault) 50.3 Glucose Level 348 mg/dL (70-99) Calcium Level 6.9 mg/dL (8.5-10.1) Phosphorus Level 1.8 mg/dL (2.6-4.7) Magnesium Level 1.8 mg/dL (1.8-2.4) Test 08/27/21 14:52 08/27/21 16:02 08/27/21 17:12 08/27/21 17:15 Glucose (Fingerstick) 346 mg/dL (70-99) 339 mg/dL (70-99) 337 mg/dL (70-99) Sodium Level 151 mmol/L (136-145) Potassium Level 3.3 mmol/L (3.5-5.1) Chloride Level 111 mmol/L (98-107) Carbon Dioxide Level 24 mmol/L (21-32) Anion Gap 16 (6-14) Blood Urea Nitrogen 22 mg/dL (7-20) Creatinine 1.1 mg/dL (0.6-1.0) Estimated GFR (Cockcroft-Gault) 50.3 Glucose Level 370 mg/dL (70-99) Calcium Level 7.0 mg/dL (8.5-10.1) Phosphorus Level 0.8 mg/dL (2.6-4.7) Magnesium Level 2.4 mg/dL (1.8-2.4) Test 08/27/21 18:22 08/27/21 19:28 08/27/21 20:35 08/27/21 20:40 Glucose (Fingerstick) 297 mg/dL (70-99) 229 mg/dL (70-99) 192 mg/dL (70-99) Sodium Level 152 mmol/L (136-145) Potassium Level 3.5 mmol/L (3.5-5.1) Chloride Level 112 mmol/L (98-107) Carbon Dioxide Level 26 mmol/L (21-32) Anion Gap 14 (6-14) Blood Urea Nitrogen 19 mg/dL (7-20) Creatinine 1.1 mg/dL (0.6-1.0) Estimated GFR (Cockcroft-Gault) 50.3 BUN/Creatinine Ratio 17 (6-20) Glucose Level 194 mg/dL (70-99) Calcium Level 7.1 mg/dL (8.5-10.1) Phosphorus Level 1.3 mg/dL (2.6-4.7) Magnesium Level 2.4 mg/dL (1.8-2.4) Total Bilirubin 0.5 mg/dL (0.2-1.0) Aspartate Amino Transf (AST/SGOT) 49 U/L (15-37) Alanine Aminotransferase (ALT/SGPT) 37 U/L (14-59) Alkaline Phosphatase 121 U/L (46-116) Total Protein 4.9 g/dL (6.4-8.2) Albumin 1.7 g/dL (3.4-5.0) Albumin/Globulin Ratio 0.5 (1.0-1.7) Test 08/27/21 21:31 08/27/21 22:33 08/27/21 23:30 08/28/21 01:41 Glucose (Fingerstick) 169 mg/dL (70-99) 166 mg/dL (70-99) 127 mg/dL (70-99) 161 mg/dL (70-99) Test 08/28/21 03:42 08/28/21 06:00 08/28/21 07:30 Glucose (Fingerstick) 192 mg/dL (70-99) White Blood Count 16.9 x10^3/uL (4.0-11.0) Red Blood Count 3.96 x10^6/uL (3.50-5.40) Hemoglobin 11.1 g/dL (12.0-15.5) Hematocrit 32.8 % (36.0-47.0) Mean Corpuscular Volume 83 fL (79-100) Mean Corpuscular Hemoglobin 28 pg (25-35) Mean Corpuscular Hemoglobin Concent 34 g/dL (31-37) Red Cell Distribution Width 15.5 % (11.5-14.5) Platelet Count 273 x10^3/uL (140-400) Neutrophils (%) (Auto) 92 % (31-73) Lymphocytes (%) (Auto) 3 % (24-48) Monocytes (%) (Auto) 5 % (0-9) Eosinophils (%) (Auto) 0 % (0-3) Basophils (%) (Auto) 0 % (0-3) Neutrophils # (Auto) 15.6 x10^3/uL (1.8-7.7) Lymphocytes # (Auto) 0.5 x10^3/uL (1.0-4.8) Monocytes # (Auto) 0.8 x10^3/uL (0.0-1.1) Eosinophils # (Auto) 0.0 x10^3/uL (0.0-0.7) Basophils # (Auto) 0.0 x10^3/uL (0.0-0.2) Sodium Level 147 mmol/L (136-145) Potassium Level 3.8 mmol/L (3.5-5.1) Chloride Level 112 mmol/L (98-107) Carbon Dioxide Level 24 mmol/L (21-32) Anion Gap 11 (6-14) Blood Urea Nitrogen 17 mg/dL (7-20) Creatinine 0.8 mg/dL (0.6-1.0) Estimated GFR (Cockcroft-Gault) 72.7 Glucose Level 157 mg/dL (70-99) Calcium Level 7.2 mg/dL (8.5-10.1) O2 Saturation 94 % (92-99) Arterial Blood pH 7.47 (7.35-7.45) Arterial Blood pCO2 at Patient Temp 32 mmHg (35-46) Arterial Blood pO2 at Patient Temp 63 mmHg (65-108) Arterial Blood HCO3 23 mmol/L (21-28) Arterial Blood Base Excess 0 mmol/L (-3-3) FiO2 100/pcv 18 28 +10 Objective: Assessment: 1. Severe sepsis. Hypotension on pressors 2. Acute hypoxic respiratory failure, status post intubation. 3. Severe metabolic acidosis. Resolved. Hypernatremia improved 4. Diabetes mellitus 5. 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 Leukocytosis, on steroids. 7. Elevated D-dimer.CTA negative for PE Plan: Plan of Care 1. Continue Zosyn and doxycycline. 2. Follow-up labs and cultures 3. continue supportive care 4. COVID management per primary, on Steroids 5. Monitor labs and cultures. Discussed with nursing staff. FIDEL HILL MD Aug 28, 2021 09:30
[2021-08-28] MEDS: MULTIVITAMIN with MINERAL TABLET. PO SCH (09:38)
[2021-08-28] MEDS: ENOXAPARIN 40 MG/0.4 ML SYRINGE. SQ SCH (09:38)
--- NOTE | 2021-08-28 09:52 | PDOC ---
PULMONARY PROGRESS NOTES DATE: 08/28/21 TIME: 09:48 Subjective Remains on assist control mode. Currently on 60% FiO2 and 5 of PEEP. Metabolic acidosis significantly resolved. Vitals Vital Signs Date Time Temp Pulse Resp B/P (MAP) Pulse Ox O2 Delivery O2 Flow Rate FiO2 08/28/21 07:36 99 Ventilator 08/28/21 07:00 88 24 93/53 08/28/21 05:39 5.0 08/28/21 04:00 98.3 98.3 Comments Visual exam done due to COVID-19 viral pneumonia. No paradoxical breathing. Currently sedated. No skin rash no leg edema Labs Laboratory Tests Test 08/26/21 14:45 08/26/21 15:30 08/26/21 15:45 08/26/21 23:02 White Blood Count 12.4 x10^3/uL (4.0-11.0) Red Blood Count 5.01 x10^6/uL (3.50-5.40) Hemoglobin 14.3 g/dL (12.0-15.5) Hematocrit 45.0 % (36.0-47.0) Mean Corpuscular Volume 90 fL (79-100) Mean Corpuscular Hemoglobin 29 pg (25-35) Mean Corpuscular Hemoglobin Concent 32 g/dL (31-37) Red Cell Distribution Width 16.3 % (11.5-14.5) Platelet Count 211 x10^3/uL (140-400) Neutrophils (%) (Auto) 90 % (31-73) Lymphocytes (%) (Auto) 7 % (24-48) Monocytes (%) (Auto) 3 % (0-9) Eosinophils (%) (Auto) 0 % (0-3) Basophils (%) (Auto) 0 % (0-3) Neutrophils # (Auto) 11.1 x10^3/uL (1.8-7.7) Lymphocytes # (Auto) 0.9 x10^3/uL (1.0-4.8) Monocytes # (Auto) 0.4 x10^3/uL (0.0-1.1) Eosinophils # (Auto) 0.0 x10^3/uL (0.0-0.7) Basophils # (Auto) 0.0 x10^3/uL (0.0-0.2) Segmented Neutrophils % 61 % (35-66) Band Neutrophils % 25 % (0-9) Lymphocytes % 12 % (24-48) Basophils % 2 % (0-3) Platelet Estimate Adequate (ADEQUATE) Large Platelets Present Polychromasia Present Poikilocytosis Slight Spherocytes Occ Ovalocytes Occ Crenated Cell Present D-Dimer (Ailin) 4.51 ug/mlFEU (0.00-0.50) Sodium Level 140 mmol/L (136-145) Potassium Level 4.2 mmol/L (3.5-5.1) Chloride Level 108 mmol/L (98-107) Carbon Dioxide Level 7 mmol/L (21-32) Anion Gap 25 (6-14) Blood Urea Nitrogen 17 mg/dL (7-20) Creatinine 1.0 mg/dL (0.6-1.0) Estimated GFR (Cockcroft-Gault) 56.2 Glucose Level 144 mg/dL (70-99) Calcium Level 8.6 mg/dL (8.5-10.1) Troponin I High Sensitivity 8 ng/L (4-50) Lactic Acid Level 1.6 mmol/L (0.4-2.0) O2 Saturation 93 % (92-99) 94 % (92-99) Arterial Blood pH 7.17 (7.35-7.45) 7.00 (7.35-7.45) Arterial Blood pCO2 at Patient Temp < 15 mmHg (35-46) 15 mmHg (35-46) Arterial Blood pO2 at Patient Temp 71 mmHg (65-108) 84 mmHg (65-108) Arterial Blood HCO3 5 mmol/L (21-28) 4 mmol/L (21-28) Arterial Blood Base Excess -21 mmol/L (-3-3) -26 mmol/L (-3-3) FiO2 21/ra Ra Test 08/27/21 01:40 08/27/21 03:57 08/27/21 04:38 08/27/21 06:45 White Blood Count 27.1 x10^3/uL (4.0-11.0) Red Blood Count 5.13 x10^6/uL (3.50-5.40) Hemoglobin 14.7 g/dL (12.0-15.5) Hematocrit 46.7 % (36.0-47.0) Mean Corpuscular Volume 91 fL (79-100) Mean Corpuscular Hemoglobin 29 pg (25-35) Mean Corpuscular Hemoglobin Concent 32 g/dL (31-37) Red Cell Distribution Width 17.3 % (11.5-14.5) Platelet Count 352 x10^3/uL (140-400) Neutrophils (%) (Auto) 91 % (31-73) Lymphocytes (%) (Auto) 5 % (24-48) Monocytes (%) (Auto) 4 % (0-9) Eosinophils (%) (Auto) 0 % (0-3) Basophils (%) (Auto) 0 % (0-3) Neutrophils # (Auto) 24.7 x10^3/uL (1.8-7.7) Lymphocytes # (Auto) 1.4 x10^3/uL (1.0-4.8) Monocytes # (Auto) 1.0 x10^3/uL (0.0-1.1) Eosinophils # (Auto) 0.0 x10^3/uL (0.0-0.7) Basophils # (Auto) 0.1 x10^3/uL (0.0-0.2) Segmented Neutrophils % 81 % (35-66) Band Neutrophils % 10 % (0-9) Lymphocytes % 7 % (24-48) Monocytes % 2 % (0-10) Toxic Granulation Slight Platelet Estimate Adequate (ADEQUATE) Anisocytosis Slight Sodium Level 145 mmol/L (136-145) Potassium Level 4.8 mmol/L (3.5-5.1) Chloride Level 110 mmol/L (98-107) Carbon Dioxide Level 6 mmol/L (21-32) Anion Gap 29 (6-14) Blood Urea Nitrogen 26 mg/dL (7-20) Creatinine 1.0 mg/dL (0.6-1.0) Estimated GFR (Cockcroft-Gault) 56.2 Glucose Level 261 mg/dL (70-99) Calcium Level 7.9 mg/dL (8.5-10.1) Salicylates Level 8.4 mg/dL (2.8-20.0) Salicylate Last Dose Date Unk Salicylate Last Dose Time Unk Glucose (Fingerstick) 266 mg/dL (70-99) O2 Saturation 90 % (92-99) Arterial Blood pH 7.06 (7.35-7.45) Arterial Blood pCO2 at Patient Temp 15 mmHg (35-46) Arterial Blood pO2 at Patient Temp 62 mmHg (65-108) Arterial Blood HCO3 4 mmol/L (21-28) Arterial Blood Base Excess -24 mmol/L (-3-3) FiO2 40 (5l nc) Urine Collection Type Unknown Urine Color Yellow Urine Clarity Cloudy Urine pH 5.0 (<5.0-8.0) Urine Specific [place] 1.025 (1.000-1.030) Urine Protein 30 mg/dL (NEG-TRACE) Urine Glucose (UA) >=1000 mg/dL (NEG) Urine Ketones (Stick) >=80 mg/dL (NEG) Urine Blood Small (NEG) Urine Nitrite Negative (NEG) Urine Bilirubin Negative (NEG) Urine Urobilinogen Dipstick 0.2 mg/dL (0.2 mg/dL) Urine Leukocyte Esterase Negative (NEG) Urine RBC 1-2 /HPF (0-2) Urine WBC 0 /HPF (0-4) Urine Squamous Epithelial Cells Occ /LPF Urine Bacteria 0 /HPF (0-FEW) Urine Hyaline Casts Occasional /HPF Urine Granular Casts Few /HPF Urine Mucus Mod /LPF Test 08/27/21 08:00 08/27/21 08:15 08/27/21 11:21 08/27/21 12:01 O2 Saturation 99 % (92-99) 96 % (92-99) Arterial Blood pH 6.95 (7.35-7.45) 7.13 (7.35-7.45) Arterial Blood pCO2 at Patient Temp 37 mmHg (35-46) 33 mmHg (35-46) Arterial Blood pO2 at Patient Temp 204 mmHg (65-108) 85 mmHg (65-108) Arterial Blood HCO3 8 mmol/L (21-28) 11 mmol/L (21-28) Arterial Blood Base Excess -24 mmol/L (-3-3) -18 mmol/L (-3-3) FiO2 100/vent 70/vent White Blood Count 28.9 x10^3/uL (4.0-11.0) Red Blood Count 4.81 x10^6/uL (3.50-5.40) Hemoglobin 13.7 g/dL (12.0-15.5) Hematocrit 43.1 % (36.0-47.0) Mean Corpuscular Volume 90 fL (79-100) Mean Corpuscular Hemoglobin 28 pg (25-35) Mean Corpuscular Hemoglobin Concent 32 g/dL (31-37) Red Cell Distribution Width 16.9 % (11.5-14.5) Platelet Count 358 x10^3/uL (140-400) Neutrophils (%) (Auto) 91 % (31-73) Lymphocytes (%) (Auto) 5 % (24-48) Monocytes (%) (Auto) 4 % (0-9) Eosinophils (%) (Auto) 0 % (0-3) Basophils (%) (Auto) 0 % (0-3) Neutrophils # (Auto) 26.2 x10^3/uL (1.8-7.7) Lymphocytes # (Auto) 1.3 x10^3/uL (1.0-4.8) Monocytes # (Auto) 1.3 x10^3/uL (0.0-1.1) Eosinophils # (Auto) 0.0 x10^3/uL (0.0-0.7) Basophils # (Auto) 0.1 x10^3/uL (0.0-0.2) Sodium Level 146 mmol/L (136-145) Potassium Level 3.8 mmol/L (3.5-5.1) Chloride Level 110 mmol/L (98-107) Carbon Dioxide Level 10 mmol/L (21-32) Anion Gap 26 (6-14) Blood Urea Nitrogen 31 mg/dL (7-20) Creatinine 1.3 mg/dL (0.6-1.0) Estimated GFR (Cockcroft-Gault) 41.5 BUN/Creatinine Ratio 24 (6-20) Glucose Level 397 mg/dL (70-99) Calcium Level 7.8 mg/dL (8.5-10.1) Phosphorus Level 3.9 mg/dL (2.6-4.7) Magnesium Level 2.2 mg/dL (1.8-2.4) Total Bilirubin 0.6 mg/dL (0.2-1.0) Aspartate Amino Transf (AST/SGOT) 85 U/L (15-37) Alanine Aminotransferase (ALT/SGPT) 47 U/L (14-59) Alkaline Phosphatase 139 U/L (46-116) Total Protein 6.1 g/dL (6.4-8.2) Albumin 2.2 g/dL (3.4-5.0) Albumin/Globulin Ratio 0.6 (1.0-1.7) Glucose (Fingerstick) 375 mg/dL (70-99) Test 08/27/21 12:30 08/27/21 12:40 08/27/21 14:52 08/27/21 16:02 Glucose (Fingerstick) 325 mg/dL (70-99) 346 mg/dL (70-99) 339 mg/dL (70-99) Sodium Level 162 mmol/L (136-145) Potassium Level 3.2 mmol/L (3.5-5.1) Chloride Level 115 mmol/L (98-107) Carbon Dioxide Level 22 mmol/L (21-32) Anion Gap 25 (6-14) Blood Urea Nitrogen 28 mg/dL (7-20) Creatinine 1.1 mg/dL (0.6-1.0) Estimated GFR (Cockcroft-Gault) 50.3 Glucose Level 348 mg/dL (70-99) Calcium Level 6.9 mg/dL (8.5-10.1) Phosphorus Level 1.8 mg/dL (2.6-4.7) Magnesium Level 1.8 mg/dL (1.8-2.4) Test 08/27/21 17:12 08/27/21 17:15 08/27/21 18:22 08/27/21 19:28 Glucose (Fingerstick) 337 mg/dL (70-99) 297 mg/dL (70-99) 229 mg/dL (70-99) Sodium Level 151 mmol/L (136-145) Potassium Level 3.3 mmol/L (3.5-5.1) Chloride Level 111 mmol/L (98-107) Carbon Dioxide Level 24 mmol/L (21-32) Anion Gap 16 (6-14) Blood Urea Nitrogen 22 mg/dL (7-20) Creatinine 1.1 mg/dL (0.6-1.0) Estimated GFR (Cockcroft-Gault) 50.3 Glucose Level 370 mg/dL (70-99) Calcium Level 7.0 mg/dL (8.5-10.1) Phosphorus Level 0.8 mg/dL (2.6-4.7) Magnesium Level 2.4 mg/dL (1.8-2.4) Test 08/27/21 20:35 08/27/21 20:40 08/27/21 21:31 08/27/21 22:33 Glucose (Fingerstick) 192 mg/dL (70-99) 169 mg/dL (70-99) 166 mg/dL (70-99) Sodium Level 152 mmol/L (136-145) Potassium Level 3.5 mmol/L (3.5-5.1) Chloride Level 112 mmol/L (98-107) Carbon Dioxide Level 26 mmol/L (21-32) Anion Gap 14 (6-14) Blood Urea Nitrogen 19 mg/dL (7-20) Creatinine 1.1 mg/dL (0.6-1.0) Estimated GFR (Cockcroft-Gault) 50.3 BUN/Creatinine Ratio 17 (6-20) Glucose Level 194 mg/dL (70-99) Calcium Level 7.1 mg/dL (8.5-10.1) Phosphorus Level 1.3 mg/dL (2.6-4.7) Magnesium Level 2.4 mg/dL (1.8-2.4) Total Bilirubin 0.5 mg/dL (0.2-1.0) Aspartate Amino Transf (AST/SGOT) 49 U/L (15-37) Alanine Aminotransferase (ALT/SGPT) 37 U/L (14-59) Alkaline Phosphatase 121 U/L (46-116) Total Protein 4.9 g/dL (6.4-8.2) Albumin 1.7 g/dL (3.4-5.0) Albumin/Globulin Ratio 0.5 (1.0-1.7) Test 08/27/21 23:30 08/28/21 01:41 08/28/21 03:42 08/28/21 06:00 Glucose (Fingerstick) 127 mg/dL (70-99) 161 mg/dL (70-99) 192 mg/dL (70-99) White Blood Count 16.9 x10^3/uL (4.0-11.0) Red Blood Count 3.96 x10^6/uL (3.50-5.40) Hemoglobin 11.1 g/dL (12.0-15.5) Hematocrit 32.8 % (36.0-47.0) Mean Corpuscular Volume 83 fL (79-100) Mean Corpuscular Hemoglobin 28 pg (25-35) Mean Corpuscular Hemoglobin Concent 34 g/dL (31-37) Red Cell Distribution Width 15.5 % (11.5-14.5) Platelet Count 273 x10^3/uL (140-400) Neutrophils (%) (Auto) 92 % (31-73) Lymphocytes (%) (Auto) 3 % (24-48) Monocytes (%) (Auto) 5 % (0-9) Eosinophils (%) (Auto) 0 % (0-3) Basophils (%) (Auto) 0 % (0-3) Neutrophils # (Auto) 15.6 x10^3/uL (1.8-7.7) Lymphocytes # (Auto) 0.5 x10^3/uL (1.0-4.8) Monocytes # (Auto) 0.8 x10^3/uL (0.0-1.1) Eosinophils # (Auto) 0.0 x10^3/uL (0.0-0.7) Basophils # (Auto) 0.0 x10^3/uL (0.0-0.2) Sodium Level 147 mmol/L (136-145) Potassium Level 3.8 mmol/L (3.5-5.1) Chloride Level 112 mmol/L (98-107) Carbon Dioxide Level 24 mmol/L (21-32) Anion Gap 11 (6-14) Blood Urea Nitrogen 17 mg/dL (7-20) Creatinine 0.8 mg/dL (0.6-1.0) Estimated GFR (Cockcroft-Gault) 72.7 Glucose Level 157 mg/dL (70-99) Calcium Level 7.2 mg/dL (8.5-10.1) Test 08/28/21 07:30 O2 Saturation 94 % (92-99) Arterial Blood pH 7.47 (7.35-7.45) Arterial Blood pCO2 at Patient Temp 32 mmHg (35-46) Arterial Blood pO2 at Patient Temp 63 mmHg (65-108) Arterial Blood HCO3 23 mmol/L (21-28) Arterial Blood Base Excess 0 mmol/L (-3-3) FiO2 100/pcv 18 28 +10 Laboratory Tests Test 08/27/21 11:21 08/27/21 12:01 08/27/21 12:30 08/27/21 12:40 Glucose (Fingerstick) 375 mg/dL (70-99) 325 mg/dL (70-99) O2 Saturation 96 % (92-99) Arterial Blood pH 7.13 (7.35-7.45) Arterial Blood pCO2 at Patient Temp 33 mmHg (35-46) Arterial Blood pO2 at Patient Temp 85 mmHg (65-108) Arterial Blood HCO3 11 mmol/L (21-28) Arterial Blood Base Excess -18 mmol/L (-3-3) FiO2 70/vent Sodium Level 162 mmol/L (136-145) Potassium Level 3.2 mmol/L (3.5-5.1) Chloride Level 115 mmol/L (98-107) Carbon Dioxide Level 22 mmol/L (21-32) Anion Gap 25 (6-14) Blood Urea Nitrogen 28 mg/dL (7-20) Creatinine 1.1 mg/dL (0.6-1.0) Estimated GFR (Cockcroft-Gault) 50.3 Glucose Level 348 mg/dL (70-99) Calcium Level 6.9 mg/dL (8.5-10.1) Phosphorus Level 1.8 mg/dL (2.6-4.7) Magnesium Level 1.8 mg/dL (1.8-2.4) Test 08/27/21 14:52 08/27/21 16:02 08/27/21 17:12 08/27/21 17:15 Glucose (Fingerstick) 346 mg/dL (70-99) 339 mg/dL (70-99) 337 mg/dL (70-99) Sodium Level 151 mmol/L (136-145) Potassium Level 3.3 mmol/L (3.5-5.1) Chloride Level 111 mmol/L (98-107) Carbon Dioxide Level 24 mmol/L (21-32) Anion Gap 16 (6-14) Blood Urea Nitrogen 22 mg/dL (7-20) Creatinine 1.1 mg/dL (0.6-1.0) Estimated GFR (Cockcroft-Gault) 50.3 Glucose Level 370 mg/dL (70-99) Calcium Level 7.0 mg/dL (8.5-10.1) Phosphorus Level 0.8 mg/dL (2.6-4.7) Magnesium Level 2.4 mg/dL (1.8-2.4) Test 08/27/21 18:22 08/27/21 19:28 08/27/21 20:35 08/27/21 20:40 Glucose (Fingerstick) 297 mg/dL (70-99) 229 mg/dL (70-99) 192 mg/dL (70-99) Sodium Level 152 mmol/L (136-145) Potassium Level 3.5 mmol/L (3.5-5.1) Chloride Level 112 mmol/L (98-107) Carbon Dioxide Level 26 mmol/L (21-32) Anion Gap 14 (6-14) Blood Urea Nitrogen 19 mg/dL (7-20) Creatinine 1.1 mg/dL (0.6-1.0) Estimated GFR (Cockcroft-Gault) 50.3 BUN/Creatinine Ratio 17 (6-20) Glucose Level 194 mg/dL (70-99) Calcium Level 7.1 mg/dL (8.5-10.1) Phosphorus Level 1.3 mg/dL (2.6-4.7) Magnesium Level 2.4 mg/dL (1.8-2.4) Total Bilirubin 0.5 mg/dL (0.2-1.0) Aspartate Amino Transf (AST/SGOT) 49 U/L (15-37) Alanine Aminotransferase (ALT/SGPT) 37 U/L (14-59) Alkaline Phosphatase 121 U/L (46-116) Total Protein 4.9 g/dL (6.4-8.2) Albumin 1.7 g/dL (3.4-5.0) Albumin/Globulin Ratio 0.5 (1.0-1.7) Test 08/27/21 21:31 08/27/21 22:33 08/27/21 23:30 08/28/21 01:41 Glucose (Fingerstick) 169 mg/dL (70-99) 166 mg/dL (70-99) 127 mg/dL (70-99) 161 mg/dL (70-99) Test 08/28/21 03:42 08/28/21 06:00 08/28/21 07:30 Glucose (Fingerstick) 192 mg/dL (70-99) White Blood Count 16.9 x10^3/uL (4.0-11.0) Red Blood Count 3.96 x10^6/uL (3.50-5.40) Hemoglobin 11.1 g/dL (12.0-15.5) Hematocrit 32.8 % (36.0-47.0) Mean Corpuscular Volume 83 fL (79-100) Mean Corpuscular Hemoglobin 28 pg (25-35) Mean Corpuscular Hemoglobin Concent 34 g/dL (31-37) Red Cell Distribution Width 15.5 % (11.5-14.5) Platelet Count 273 x10^3/uL (140-400) Neutrophils (%) (Auto) 92 % (31-73) Lymphocytes (%) (Auto) 3 % (24-48) Monocytes (%) (Auto) 5 % (0-9) Eosinophils (%) (Auto) 0 % (0-3) Basophils (%) (Auto) 0 % (0-3) Neutrophils # (Auto) 15.6 x10^3/uL (1.8-7.7) Lymphocytes # (Auto) 0.5 x10^3/uL (1.0-4.8) Monocytes # (Auto) 0.8 x10^3/uL (0.0-1.1) Eosinophils # (Auto) 0.0 x10^3/uL (0.0-0.7) Basophils # (Auto) 0.0 x10^3/uL (0.0-0.2) Sodium Level 147 mmol/L (136-145) Potassium Level 3.8 mmol/L (3.5-5.1) Chloride Level 112 mmol/L (98-107) Carbon Dioxide Level 24 mmol/L (21-32) Anion Gap 11 (6-14) Blood Urea Nitrogen 17 mg/dL (7-20) Creatinine 0.8 mg/dL (0.6-1.0) Estimated GFR (Cockcroft-Gault) 72.7 Glucose Level 157 mg/dL (70-99) Calcium Level 7.2 mg/dL (8.5-10.1) O2 Saturation 94 % (92-99) Arterial Blood pH 7.47 (7.35-7.45) Arterial Blood pCO2 at Patient Temp 32 mmHg (35-46) Arterial Blood pO2 at Patient Temp 63 mmHg (65-108) Arterial Blood HCO3 23 mmol/L (21-28) Arterial Blood Base Excess 0 mmol/L (-3-3) FiO2 100/pcv 18 28 +10 Medications Active Scripts Medications Dose Route/Sig Max Daily Dose Days Date Category Aspirin 81 Mg Tab.chew 1 Tab PO DAILY 08/26/21 Reported Codeine-Guaifen 10-100 mg/5 ml (Guaifenesin/Codeine Phosphate) 120 Ml Liquid 5 Ml PO PRN Q6HRS PRN MDD 20 Milliliter(s) 6 08/26/21 Reported Ibuprofen 600 Mg Tablet 600 Mg PO PRN Q8HRS PRN 08/26/21 Reported Ondansetron Odt (Ondansetron) 4 Mg Tab.rapdis 1 Tab PO PRN Q6-8HRS 08/26/21 Reported Benzonatate 100 Mg Capsule 1 Cap PO TID 08/26/21 Reported Carvedilol (Carvedilol) 6.25 Mg Tablet 6.25 Mg PO BIDWMEALS 08/26/21 Reported Levothyroxine Sodium 150 Mcg Tablet 1 Tab PO DAILY 08/26/21 Reported Levofloxacin 750 Mg Tablet 1 Tab PO DAILY PRN 08/26/21 Reported Jardiance (Empagliflozin) 10 Mg Tablet 10 Mg PO DAILY 08/26/21 Reported Lisinopril 20 Mg Tablet 1 Tab PO BID 08/26/21 Reported Metformin Hcl 1,000 Mg Tablet 1,000 Mg PO BIDWMEALS 08/26/21 Reported Crestor (Rosuvastatin Calcium) 40 Mg Tablet 20 Mg PO HS 08/26/21 Reported Ventolin Hfa Inhaler (Albuterol Sulfate) 18 Gm Hfa.aer.ad 2 Puff INH Q4HRS 08/26/21 Reported Brilinta (Ticagrelor) 90 Mg Tablet 90 Mg PO BID 08/26/21 Reported Comments Chest x-ray reviewed 08/27/2021 Bilateral diffuse interstitial infiltrates related to COVID-19 viral pneumonia Impression . 1. Acute respiratory failure secondary to severe metabolic acidosis. 2. Severe metabolic acidosis. Likely etiology is Jardiance induced metabolic acidosis versus diabetic ketoacidosis. Her lactic acid was 1.6. She clinically has a component of septic shock as well. 3. Abnormal chest x-ray and CT angiogram with diffuse bilateral patchy infiltrates consistent with viral pneumonia. 4. COVID-19 positive. 5. Severe protein-calorie malnutrition. 6. Marked leukocytosis. 7. Septic shock. 8. Hyponatremia, now improved 9. Severe metabolic acidosis likely secondary to Jardiance induced, with a bicarb of 4 present on admission, now significantly improved Plan . RECOMMENDATIONS: 1. Discussed with respiratory therapist and RN. At this time, we will continue present assist control mode. Follow ABGs and make necessary adjustments. Currently on 60% FiO2 and 5 of PEEP. 2. Diabetic ketoacidosis protocol. 3. Continue vasopressor support. 4. IV hydration. 5. Continue low-dose Solu-Medrol for COVID-19. 6. It is too late for remdesivir. 7. Lovenox for DVT prophylaxis. 8. Continue present aggressive treatment. 9. No need for CT abdomen and pelvis. Clinically less likely bowel perforation. Metabolic acidosis has resolved. 10. Discussed with RN and RT. and nephrology cct 30 min ELLYN CALVILLO MD Aug 28, 2021 09:52
[2021-08-28] MEDS: DOXYCYCLINE HYCLATE 100 MG in IV DEXTROSE 5% 100ML 100 ML IV SCH ×2 (12:10→20:57)
--- NOTE | 2021-08-28 14:07 | PDOC ---
GENERAL General: Patient examined chart reviewed no overnight events noted. Patient's acidosis completely resolved bicarbonate this morning is 24. Likely culprit is the Jardiance which can rarely cause severe acidosis. She is off the insulin drip and now just dosed with glargine and sliding scale lispro. Appreciate critical care and nephrology support. We will continue current management otherwise. Problems: (1) Acute respiratory failure with hypoxia (2) Pneumonia due to COVID-19 virus (3) Metabolic acidosis (4) Diabetic ketoacidosis VITAL SIGNS Vital Signs/I&O: Vital Signs Date Time Temp Pulse Resp B/P (MAP) Pulse Ox O2 Delivery O2 Flow Rate FiO2 08/28/21 13:00 88 24 101/56 99 Ventilator 08/28/21 12:30 98.4 98.4 08/28/21 05:39 5.0 I & O 08/27/21 08/27/21 08/28/21 15:00 23:00 07:00 Intake Total 1712 ml 2607.88 ml 811 ml Output Total 1700 ml 1400 ml 1200 ml Balance 12 ml 1207.88 ml -389 ml In general patient is intubated and sedated on the ventilator HEENT exam is unremarkable for acute abnormality Chest bilateral equal air entry though diminished throughout no crackles or wheezes are noted Heart S1-S2 normal regular rate and rhythm no murmurs or gallops are noted Abdomen soft nontender nondistended no masses organomegaly noted Extremity exam is unremarkable for acute abnormality ALLERGIES Allergies: Allergies Coded Allergies Type Severity Reaction Last Updated Verified No Known Drug Allergies 08/26/21 No MEDS Medications: Current Medications Medications (Trade) Dose Ordered Sig/Silvia Start Time Stop Time Status Last Admin Dose Admin Ceftriaxone Sodium (Rocephin) 1 gm Q24H 08/26/21 21:00 08/27/21 00:25 DC 08/26/21 22:22 Dexamethasone Sodium Phosphate (Decadron) 10 mg 1X ONCE 08/26/21 16:00 08/26/21 16:01 DC 08/26/21 16:00 Dextrose (Dextrose 50%-Water Syringe) 12.5 gm PRN Q15MIN PRN 08/27/21 22:30 Doxycycline Hyclate 100 mg/ Dextrose 100 ml @ 50 mls/hr Q12HR 08/26/21 21:00 08/28/21 12:10 Enoxaparin Sodium (Lovenox 40mg Syringe) 40 mg DAILY 08/27/21 09:00 08/28/21 09:38 Fentanyl Citrate 30 ml @ 2.5 mls/hr CONT PRN 08/27/21 05:30 08/28/21 04:20 Info (CONTRAST GIVEN -- Rx MONITORING) 1 each PRN DAILY PRN 08/26/21 16:30 08/28/21 16:29 Insulin Glargine (Lantus Syringe) 25 unit QHS 08/27/21 23:00 08/27/21 23:00 Insulin Human Lispro (HumaLOG) 5 units Q6HRS 08/28/21 00:00 08/28/21 12:06 Insulin Human Regular 100 unit/ Sodium Chloride 101 ml @ 0 mls/hr CONT PRN PRN 08/27/21 09:30 08/28/21 12:31 DC 08/27/21 17:07 Iohexol (Omnipaque 350 Mg/ml) 90 ml 1X ONCE 08/26/21 16:30 08/26/21 16:31 DC 08/26/21 16:41 Levothyroxine Sodium (Synthroid) 150 mcg DAILY06 08/28/21 06:00 08/28/21 06:01 Magnesium Sulfate 50 ml @ 25 mls/hr PRN DAILY PRN 08/28/21 08:45 Methylprednisolone Sodium Succinate (SOLU-Medrol 40MG VIAL) 40 mg BID 08/26/21 21:00 08/27/21 17:06 DC 08/27/21 08:51 Midazolam HCl (Versed) 5 mg PRN 1X PRN 08/27/21 05:30 08/28/21 05:29 DC Multivitamins (Thera M Plus) 1 tab DAILY 08/27/21 09:00 08/28/21 09:38 Norepinephrine Bitartrate 8 mg/ Dextrose 258 ml @ 12.984 mls/ hr CONT PRN 08/27/21 08:00 08/27/21 13:19 Piperacillin Sod/ Tazobactam Sod (Zosyn Per Pharmacy) 1 each PRN DAILY PRN 08/27/21 00:30 Piperacillin Sod/ Tazobactam Sod 4.5 gm/Dextrose 100 ml @ 200 mls/hr Q6HRS 08/27/21 01:00 08/28/21 11:53 Potassium Chloride/Water 100 ml @ 100 mls/hr 1X ONCE 08/27/21 19:00 08/27/21 19:59 DC 08/27/21 19:28 Potassium Phosphate 15 mmol/ Sodium Chloride 105 ml @ 52.5 mls/hr Q2H 08/27/21 23:00 08/28/21 02:59 DC 08/28/21 01:56 Propofol 100 ml @ 2.013 mls/ hr CONT PRN 08/27/21 05:30 Sodium Bicarbonate 100 meq/Dextrose 1,100 ml @ 200 mls/hr Q5H30M 08/27/21 13:00 08/27/21 18:44 DC 08/27/21 12:25 Sodium Bicarbonate 150 meq/Dextrose 1,150 ml @ 200 mls/hr Q5H45M 08/27/21 06:30 08/27/21 11:58 DC 08/27/21 06:30 Sodium Bicarbonate 50 meq/Sodium Chloride 1,050 ml @ 200 mls/hr Q5H15M 08/26/21 21:00 08/26/21 23:59 DC Sodium Bicarbonate (Sodium Bicarb Adult 8.4% Syr) 50 meq Q1HR 08/27/21 12:00 08/27/21 15:01 DC 08/27/21 16:07 Sodium Chloride 1,000 ml @ 250 mls/hr Q4H 08/27/21 18:00 08/27/21 22:48 DC 08/27/21 18:14 Vecuronium [place] (Norcuron Bolus) 6 mg PRN 1X PRN 08/27/21 05:30 08/27/21 06:28 DC 08/27/21 06:28 Current Medications Medications (Trade) Dose Ordered Sig/Silvia Route PRN Reason Start Time Stop Time Status Last Admin Dose Admin Potassium Phosphate 15 mmol/ Sodium Chloride 105 ml @ 52.5 mls/hr 1X ONCE IV 08/27/21 15:00 08/27/21 16:59 DC 08/27/21 14:08 Potassium Chloride/Water 100 ml @ 100 mls/hr 1X ONCE IV 08/27/21 15:00 08/27/21 15:59 DC 08/27/21 15:34 Potassium Phosphate 15 mmol/ Sodium Chloride 105 ml @ 52.5 mls/hr 1X ONCE IV 08/27/21 18:30 08/27/21 20:29 DC 08/27/21 18:27 Potassium Chloride/Water 100 ml @ 100 mls/hr 1X ONCE IV 08/27/21 19:00 08/27/21 19:59 DC 08/27/21 19:28 Sodium Chloride 1,000 ml @ 250 mls/hr Q4H IV 08/27/21 18:00 08/27/21 22:48 DC 08/27/21 18:14 Levothyroxine Sodium (Synthroid) 150 mcg DAILY06 PO 08/28/21 06:00 08/28/21 06:01 Insulin Glargine (Lantus Syringe) 25 unit QHS SQ 08/27/21 23:00 08/27/21 23:00 Potassium Phosphate 15 mmol/ Sodium Chloride 105 ml @ 52.5 mls/hr Q2H IV 08/27/21 23:00 08/28/21 02:59 DC 08/28/21 01:56 Insulin Human Lispro (HumaLOG) 0-9 UNITS Q6HRS SQ 08/28/21 00:00 08/28/21 12:08 Insulin Human Lispro (HumaLOG) 5 units Q6HRS SQ 08/28/21 00:00 08/28/21 12:06 LAB Lab: Laboratory Tests Test 08/27/21 14:52 08/27/21 16:02 08/27/21 17:12 08/27/21 17:15 Glucose (Fingerstick) 346 mg/dL (70-99) H 339 mg/dL (70-99) H 337 mg/dL (70-99) H Sodium Level 151 mmol/L (136-145) #H Potassium Level 3.3 mmol/L (3.5-5.1) L Chloride Level 111 mmol/L (98-107) H Carbon Dioxide Level 24 mmol/L (21-32) Anion Gap 16 (6-14) H Blood Urea Nitrogen 22 mg/dL (7-20) H Creatinine 1.1 mg/dL (0.6-1.0) H Estimated GFR (Cockcroft-Gault) 50.3 Glucose Level 370 mg/dL (70-99) H Calcium Level 7.0 mg/dL (8.5-10.1) L Phosphorus Level 0.8 mg/dL (2.6-4.7) L Magnesium Level 2.4 mg/dL (1.8-2.4) Test 08/27/21 18:22 08/27/21 19:28 08/27/21 20:35 08/27/21 20:40 Glucose (Fingerstick) 297 mg/dL (70-99) H 229 mg/dL (70-99) H 192 mg/dL (70-99) H Sodium Level 152 mmol/L (136-145) H Potassium Level 3.5 mmol/L (3.5-5.1) Chloride Level 112 mmol/L (98-107) H Carbon Dioxide Level 26 mmol/L (21-32) Anion Gap 14 (6-14) Blood Urea Nitrogen 19 mg/dL (7-20) Creatinine 1.1 mg/dL (0.6-1.0) H Estimated GFR (Cockcroft-Gault) 50.3 BUN/Creatinine Ratio 17 (6-20) Glucose Level 194 mg/dL (70-99) H Calcium Level 7.1 mg/dL (8.5-10.1) L Phosphorus Level 1.3 mg/dL (2.6-4.7) L Magnesium Level 2.4 mg/dL (1.8-2.4) Total Bilirubin 0.5 mg/dL (0.2-1.0) Aspartate Amino Transferase (AST) 49 U/L (15-37) H Alanine Aminotransferase (ALT) 37 U/L (14-59) Alkaline Phosphatase 121 U/L (46-116) H Total Protein 4.9 g/dL (6.4-8.2) L Albumin 1.7 g/dL (3.4-5.0) L Albumin/Globulin Ratio 0.5 (1.0-1.7) L Test 08/27/21 21:31 08/27/21 22:33 08/27/21 23:30 08/28/21 01:41 Glucose (Fingerstick) 169 mg/dL (70-99) H 166 mg/dL (70-99) H 127 mg/dL (70-99) H 161 mg/dL (70-99) H Test 08/28/21 03:42 08/28/21 06:00 08/28/21 07:30 08/28/21 11:57 Glucose (Fingerstick) 192 mg/dL (70-99) H 166 mg/dL (70-99) H White Blood Count 16.9 x10^3/uL (4.0-11.0) H Red Blood Count 3.96 x10^6/uL (3.50-5.40) Hemoglobin 11.1 g/dL (12.0-15.5) L Hematocrit 32.8 % (36.0-47.0) L Mean Corpuscular Volume 83 fL (79-100) # Mean Corpuscular Hemoglobin 28 pg (25-35) Mean Corpuscular Hemoglobin Concent 34 g/dL (31-37) Red Cell Distribution Width 15.5 % (11.5-14.5) H Platelet Count 273 x10^3/uL (140-400) Neutrophils (%) (Auto) 92 % (31-73) H Lymphocytes (%) (Auto) 3 % (24-48) L Monocytes (%) (Auto) 5 % (0-9) Eosinophils (%) (Auto) 0 % (0-3) Basophils (%) (Auto) 0 % (0-3) Neutrophils # (Auto) 15.6 x10^3/uL (1.8-7.7) H Lymphocytes # (Auto) 0.5 x10^3/uL (1.0-4.8) L Monocytes # (Auto) 0.8 x10^3/uL (0.0-1.1) Eosinophils # (Auto) 0.0 x10^3/uL (0.0-0.7) Basophils # (Auto) 0.0 x10^3/uL (0.0-0.2) Sodium Level 147 mmol/L (136-145) H Potassium Level 3.8 mmol/L (3.5-5.1) Chloride Level 112 mmol/L (98-107) H Carbon Dioxide Level 24 mmol/L (21-32) Anion Gap 11 (6-14) Blood Urea Nitrogen 17 mg/dL (7-20) Creatinine 0.8 mg/dL (0.6-1.0) Estimated GFR (Cockcroft-Gault) 72.7 Glucose Level 157 mg/dL (70-99) H Calcium Level 7.2 mg/dL (8.5-10.1) L O2 Saturation 94 % (92-99) Arterial Blood pH 7.47 (7.35-7.45) H Arterial Blood pCO2 at Patient Temp 32 mmHg (35-46) L Arterial Blood pO2 at Patient Temp 63 mmHg (65-108) L Arterial Blood HCO3 23 mmol/L (21-28) Arterial Blood Base Excess 0 mmol/L (-3-3) FiO2 100/pcv 18 28 +10 Laboratory Tests 08/28/21 06:00 Laboratory Tests 08/27/21 17:15 08/27/21 20:40 08/28/21 06:00 ASSESSMENT & PLAN A&P Plan as noted above This note was created using [employer] and may have omissions and/or errors due to 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 Justifications for Admission Other Justification PREMA CHADWICK MD Aug 28, 2021 14:07
[2021-08-28] MEDS: PROPOFOL 100 ML IV PRN ×2 (14:08→23:50)
[2021-08-28] MEDS ORDERED: PROPOFOL 100 ML IV PRN (14:15)
[2021-08-28] MEDS: FAMOTIDINE 20 MG/2 ML VIAL IVP SCH (20:55)
[2021-08-28] MEDS: INSULIN GLARGINE SYRINGE. SQ SCH (20:56)
[2021-08-29] VITALS (24 sets, daily range): BP systolic 90–130; BP diastolic 47–93
[2021-08-29] MEDS: MIDAZOLAM 100mg/100ml NS BAG 100 ML IV PRN (00:07)
[2021-08-29] MEDS: INSULIN LISPRO 300 UNITS/3 ML VIAL. SQ SCH ×6 (06:00→17:54)
[2021-08-29] MEDS: LEVOTHYROXINE 150 MCG TABLET PO SCH (06:03)
[2021-08-29] MEDS: PIPERACILLIN/TAZOBACTAM 4.5 GM in IV DEXTROSE 5% 100ML 100 ML IV SCH ×3 (06:03→17:54)
--- NOTE | 2021-08-29 06:46 | RAD ---
XR CHEST 1V Clinical Indication: Reason: RF / Spl. Instructions: / History: Comparison: AP chest, 2 days ago. Findings: Patient is rotated. Endotracheal tube, enteric tube, and right IJ central line are stable. Cardiac size is stable. Coronary artery disease. Prominent aortic arch. Patchy bilateral airspace opa cities, increased in the left lung base. There is no pneumothorax. No pleural effusion is appreciated . No acute bone abnormality. IMPRESSION: 1. Life support devices as above. 2. There are bilateral patchy airspace opacities, now worse in the left lung base. Electronically signed by: Sharan Crow MD (08/29/2021 6:43 AM) [facility]
[2021-08-29 06:49] LABS: BASO % 0 % (0-3); EOS % 0 % (0-3); HEMATOCRIT 30.8 % (36.0-47.0); HEMOGLOBIN 10.3 g/dL (12.0-15.5); LYMPH # 0.5 x10^3/uL (1.0-4.8); LYMPH % 6 % (24-48); MEAN CORPUSCULAR HEMOGLOBIN 29 pg (25-35); MEAN CORPUSCULAR HGB CONC 34 g/dL (31-37); MEAN CORPUSCULAR VOLUME 85 fL (79-100); MONO # 0.4 x10^3/uL (0.0-1.1); MONO % 5 % (0-9); NEUT # 6.9 x10^3/uL (1.8-7.7); NEUT % 89 % (31-73); PLATELET COUNT 184 x10^3/uL (140-400); RED BLOOD COUNT 3.61 x10^6/uL (3.50-5.40); RED CELL DISTRIBUTION WIDTH 15.6 % (11.5-14.5); WHITE BLOOD COUNT 7.8 x10^3/uL (4.0-11.0)
[2021-08-29 07:11] LABS: CALCIUM 7.2 mg/dL (8.5-10.1); CREATININE 0.7 mg/dL (0.6-1.0); GFR 84.8; MAGNESIUM 2.5 mg/dL (1.8-2.4); POTASSIUM 3.5 mmol/L (3.5-5.1)
[2021-08-29] MEDS: MULTIVITAMIN with MINERAL TABLET. PO SCH (07:46)
[2021-08-29] MEDS: FAMOTIDINE 20 MG/2 ML VIAL IVP SCH ×2 (07:46→21:42)
[2021-08-29] MEDS: ENOXAPARIN 40 MG/0.4 ML SYRINGE. SQ SCH (07:47)
[2021-08-29] MEDS: DOXYCYCLINE HYCLATE 100 MG in IV DEXTROSE 5% 100ML 100 ML IV SCH ×2 (07:47→21:43)
--- NOTE | 2021-08-29 08:49 | PDOC ---
Infectious Disease Note Subjective: Subjective Patient intubated/sedated off pressors Discussed with RN Vital Signs: Vital Signs Vital Signs Date Time Temp Pulse Resp B/P (MAP) Pulse Ox O2 Delivery O2 Flow Rate FiO2 08/29/21 06:00 87 26 96/53 99 Ventilator 08/29/21 04:00 98.1 98.1 08/28/21 23:43 5.0 Physical Exam: PHYSICAL EXAM GENERAL: Intubated /sedated HEENT: ETT, OGT tube in place. . Anicteric. NECK: Supple. LUNGS: Decreased breath sound. HEART: S1, S2. No murmurs. ABDOMEN: Soft, nondistended, bowel sounds present GENITOURINARY: Jack in place. EXTREMITIES: No pitting edema. DERMATOLOGIC: Warm, dry. No generalized rash. CENTRAL NERVOUS SYSTEM: Intubated and sedated. PSYCHIATRIC: Unable to assess. LINES: Right IJ otherwise no complications.. Art line clean. PIV clean. Medications: Inpatient Meds: Medications reviewed. Labs: Lab Laboratory Tests Test 08/28/21 11:57 08/28/21 16:23 08/28/21 23:52 08/29/21 06:00 Glucose (Fingerstick) 166 mg/dL (70-99) 186 mg/dL (70-99) 208 mg/dL (70-99) White Blood Count 7.8 x10^3/uL (4.0-11.0) Red Blood Count 3.61 x10^6/uL (3.50-5.40) Hemoglobin 10.3 g/dL (12.0-15.5) Hematocrit 30.8 % (36.0-47.0) Mean Corpuscular Volume 85 fL (79-100) Mean Corpuscular Hemoglobin 29 pg (25-35) Mean Corpuscular Hemoglobin Concent 34 g/dL (31-37) Red Cell Distribution Width 15.6 % (11.5-14.5) Platelet Count 184 x10^3/uL (140-400) Neutrophils (%) (Auto) 89 % (31-73) Lymphocytes (%) (Auto) 6 % (24-48) Monocytes (%) (Auto) 5 % (0-9) Eosinophils (%) (Auto) 0 % (0-3) Basophils (%) (Auto) 0 % (0-3) Neutrophils # (Auto) 6.9 x10^3/uL (1.8-7.7) Lymphocytes # (Auto) 0.5 x10^3/uL (1.0-4.8) Monocytes # (Auto) 0.4 x10^3/uL (0.0-1.1) Eosinophils # (Auto) 0.0 x10^3/uL (0.0-0.7) Basophils # (Auto) 0.0 x10^3/uL (0.0-0.2) Test 08/29/21 06:10 08/29/21 06:30 Glucose (Fingerstick) 211 mg/dL (70-99) Sodium Level 148 mmol/L (136-145) Potassium Level 3.5 mmol/L (3.5-5.1) Chloride Level 114 mmol/L (98-107) Carbon Dioxide Level 25 mmol/L (21-32) Anion Gap 9 (6-14) Blood Urea Nitrogen 20 mg/dL (7-20) Creatinine 0.7 mg/dL (0.6-1.0) Estimated GFR (Cockcroft-Gault) 84.8 Glucose Level 234 mg/dL (70-99) Calcium Level 7.2 mg/dL (8.5-10.1) Magnesium Level 2.5 mg/dL (1.8-2.4) Objective: Assessment: 1. Severe sepsis. Hypotension on pressors 2. Acute hypoxic respiratory failure, status post intubation. 3. Severe metabolic acidosis. Resolved. Hypernatremia improved 4. 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 Leukocytosis, on steroids. Improving 7. Elevated D-dimer.CTA negative for PE Plan: Plan of Care 1. Continue Zosyn and doxycycline. 2. Follow-up labs and cultures 3. continue supportive care 4. COVID management per primary, on Steroids 5. Monitor labs and cultures. Discussed with nursing staff. FIDEL HILL MD Aug 29, 2021 08:49
--- NOTE | 2021-08-29 09:35 | PDOC ---
DATE OF SERVICE DATE: 08/29/21 TIME: 09:25 SUBJECTIVE ROS Intubated/Sedated Off Pressor support OBJECTIVE Vital Signs Vital Signs Date Time Temp Pulse Resp B/P (MAP) Pulse Ox O2 Delivery O2 Flow Rate FiO2 08/29/21 09:10 100 Ventilator 08/29/21 09:00 92 27 100/56 08/29/21 04:00 98.1 98.1 08/28/21 23:43 5.0 I & 0 Intake and Output 08/29/21 06:59 Intake Total 2684 ml Output Total 1200 ml Balance 1484 ml Intake IV Total 394 ml Tube Feeding 1126 ml Other 1164 ml Output Urine Total 1200 ml PHYSICAL EXAM Physical Exam GENERAL: Intubated /sedated HEENT: ETT, OGT tube in place. . Anicteric. NECK: Supple. LUNGS: Decreased breath sound. HEART: S1, S2. No murmurs. ABDOMEN: Soft, nondistended, bowel sounds present : Jack in place. EXTREM: No pitting edema. DERM: Warm, dry. No generalized rash. NEURO: Intubated and sedated. PSYCHIATRIC: Unable to assess. DIAGNOSIS/ASSESSMENT Assessment & Plan Metabolic acidosis - Wide anion gap POA, Severe Sepsis, Acidosis Improved. Monitor off IV bicarb DANIEL - POA Vasomotor , associated with intravascular volume depletion, hypotension, contrast nephropathy:Resolved . Good UOP Hypernatremia improving , Mild Hypotension POA- Off pressor support Severe sepsis Acute hypoxic respiratory failure, status post intubation. Anemia- Hgb trending down (? 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,been at numerous EDs with abnormal chest x-ray and CTA, Elevated D-dimer.CTA negative for PE COMMENT/RELEVANT DATA Meds Current Medications Medications (Trade) Dose Ordered Sig/Silvia Start Time Stop Time Status Last Admin Dose Admin Ceftriaxone Sodium (Rocephin) 1 gm Q24H 08/26/21 21:00 08/27/21 00:25 DC 08/26/21 22:22 1 GM Dexamethasone Sodium Phosphate (Decadron) 10 mg 1X ONCE 08/26/21 16:00 08/26/21 16:01 DC 08/26/21 16:00 10 MG Dextrose (Dextrose 50%-Water Syringe) 12.5 gm PRN Q15MIN PRN 08/27/21 22:30 Doxycycline Hyclate 100 mg/ Dextrose 100 ml @ 50 mls/hr Q12HR 08/26/21 21:00 08/29/21 07:47 50 MLS/HR Enoxaparin Sodium (Lovenox 40mg Syringe) 40 mg DAILY 08/27/21 09:00 08/29/21 07:47 40 MG Famotidine (Pepcid Vial) 20 mg BID 08/28/21 21:00 08/29/21 07:46 20 MG Fentanyl Citrate 30 ml @ 2.5 mls/hr CONT PRN 08/27/21 05:30 08/28/21 23:03 2.5 MLS/HR Info (CONTRAST GIVEN -- Rx MONITORING) 1 each PRN DAILY PRN 08/26/21 16:30 08/28/21 16:29 DC Insulin Glargine (Lantus Syringe) 25 unit QHS 08/27/21 23:00 08/28/21 20:56 25 UNIT Insulin Human Lispro (HumaLOG) 5 units Q6HRS 08/28/21 00:00 08/29/21 06:00 5 UNITS Insulin Human Regular 100 unit/ Sodium Chloride 101 ml @ 0 mls/hr CONT PRN PRN 08/27/21 09:30 08/28/21 12:31 DC 08/27/21 17:07 19.5 MLS/HR Iohexol (Omnipaque 350 Mg/ml) 90 ml 1X ONCE 08/26/21 16:30 08/26/21 16:31 DC 08/26/21 16:41 90 ML Levothyroxine Sodium (Synthroid) 150 mcg DAILY06 08/28/21 06:00 08/29/21 06:03 150 MCG Magnesium Sulfate 50 ml @ 25 mls/hr PRN DAILY PRN 08/28/21 08:45 Methylprednisolone Sodium Succinate (SOLU-Medrol 40MG VIAL) 40 mg BID 08/26/21 21:00 08/27/21 17:06 DC 08/27/21 08:51 40 MG Midazolam HCl (Versed) 5 mg PRN 1X PRN 08/27/21 05:30 08/28/21 05:29 DC Multivitamins (Thera M Plus) 1 tab DAILY 08/27/21 09:00 08/29/21 07:46 1 TAB Norepinephrine Bitartrate 8 mg/ Dextrose 258 ml @ 12.984 mls/ hr CONT PRN 08/27/21 08:00 08/27/21 13:19 12.984 MLS/HR Piperacillin Sod/ Tazobactam Sod (Zosyn Per Pharmacy) 1 each PRN DAILY PRN 08/27/21 00:30 Piperacillin Sod/ Tazobactam Sod 4.5 gm/Dextrose 100 ml @ 200 mls/hr Q6HRS 08/27/21 01:00 08/29/21 06:03 200 MLS/HR Potassium Chloride/Water 100 ml @ 100 mls/hr 1X ONCE 08/27/21 19:00 08/27/21 19:59 DC 08/27/21 19:28 100 MLS/HR Potassium Phosphate 15 mmol/ Sodium Chloride 105 ml @ 52.5 mls/hr Q2H 08/27/21 23:00 08/28/21 02:59 DC 08/28/21 01:56 52.5 MLS/HR Propofol 100 ml @ 2 mls/hr CONT PRN 08/28/21 14:15 08/28/21 14:14 DC Sodium Bicarbonate 100 meq/Dextrose 1,100 ml @ 200 mls/hr Q5H30M 08/27/21 13:00 08/27/21 18:44 DC 08/27/21 12:25 200 MLS/HR Sodium Bicarbonate 150 meq/Dextrose 1,150 ml @ 200 mls/hr Q5H45M 08/27/21 06:30 08/27/21 11:58 DC 08/27/21 06:30 200 MLS/HR Sodium Bicarbonate 50 meq/Sodium Chloride 1,050 ml @ 200 mls/hr Q5H15M 08/26/21 21:00 08/26/21 23:59 DC Sodium Bicarbonate (Sodium Bicarb Adult 8.4% Syr) 50 meq Q1HR 08/27/21 12:00 08/27/21 15:01 DC 08/27/21 16:07 50 MEQ Sodium Chloride 1,000 ml @ 250 mls/hr Q4H 08/27/21 18:00 08/27/21 22:48 DC 08/27/21 18:14 250 MLS/HR Vecuronium [place] (Norcuron Bolus) 6 mg PRN 1X PRN 08/27/21 05:30 08/27/21 06:28 DC 08/27/21 06:28 6 MG Lab Laboratory Tests Test 08/28/21 11:57 08/28/21 16:23 08/28/21 23:52 08/29/21 06:00 Glucose (Fingerstick) 166 mg/dL (70-99) 186 mg/dL (70-99) 208 mg/dL (70-99) White Blood Count 7.8 x10^3/uL (4.0-11.0) Red Blood Count 3.61 x10^6/uL (3.50-5.40) Hemoglobin 10.3 g/dL (12.0-15.5) Hematocrit 30.8 % (36.0-47.0) Mean Corpuscular Volume 85 fL (79-100) Mean Corpuscular Hemoglobin 29 pg (25-35) Mean Corpuscular Hemoglobin Concent 34 g/dL (31-37) Red Cell Distribution Width 15.6 % (11.5-14.5) Platelet Count 184 x10^3/uL (140-400) Neutrophils (%) (Auto) 89 % (31-73) Lymphocytes (%) (Auto) 6 % (24-48) Monocytes (%) (Auto) 5 % (0-9) Eosinophils (%) (Auto) 0 % (0-3) Basophils (%) (Auto) 0 % (0-3) Neutrophils # (Auto) 6.9 x10^3/uL (1.8-7.7) Lymphocytes # (Auto) 0.5 x10^3/uL (1.0-4.8) Monocytes # (Auto) 0.4 x10^3/uL (0.0-1.1) Eosinophils # (Auto) 0.0 x10^3/uL (0.0-0.7) Basophils # (Auto) 0.0 x10^3/uL (0.0-0.2) Test 08/29/21 06:10 08/29/21 06:30 Glucose (Fingerstick) 211 mg/dL (70-99) Sodium Level 148 mmol/L (136-145) Potassium Level 3.5 mmol/L (3.5-5.1) Chloride Level 114 mmol/L (98-107) Carbon Dioxide Level 25 mmol/L (21-32) Anion Gap 9 (6-14) Blood Urea Nitrogen 20 mg/dL (7-20) Creatinine 0.7 mg/dL (0.6-1.0) Estimated GFR (Cockcroft-Gault) 84.8 Glucose Level 234 mg/dL (70-99) Calcium Level 7.2 mg/dL (8.5-10.1) Magnesium Level 2.5 mg/dL (1.8-2.4) Results All relevant outside records, renal labs, imaging studies, telemetry/EKG's were reviewed. Justicifation of Admission Dx: Justifications for Admission: Justification of Admission Dx: N/A MARIANNA SHARMA MD Aug 29, 2021 09:35
[2021-08-29 09:39] LABS: BASE EXCESS ABG 1 mmol/L (-3-3); FIO2 ABG 55; HCO3 ABG 25 mmol/L (21-28); PCO2 ABG 34 mmHg (35-46); PO2 ABG 147 mmHg (65-108); SAT O2 ABG 99 % (92-99)
--- NOTE | 2021-08-29 10:41 | PDOC ---
[employer] PROGRESS NOTE Date of Service DOS: DATE: 08/29/21 TIME: 10:41 Chief Complaint Chief Complaint Resolving severe anion gap metabolic acidosis (Likely culprit is the Jardiance which can rarely cause severe acidosis) Respiratory failure requiring mechanical intubation ventilation DANIEL Hypernatremia Hypotension Severe sepsis Anemia Diabetes Elevated D-dimer History of Present Illness History of Present Illness 08/29/2021 Patient seen and examined in the ICU She is still on mechanical ventilation AC/20/400/50 5% with 6 of PEEP Sedated with fentanyl and Versed and propofol Has IV Levophed hanging Also on IV doxycycline currently Discussed with RN Chart reviewed Vitals/I&O Vitals/I&O: Vital Signs Date Time Temp Pulse Resp B/P (MAP) Pulse Ox O2 Delivery O2 Flow Rate FiO2 08/29/21 09:10 100 Ventilator 08/29/21 09:00 92 27 100/56 08/29/21 04:00 98.1 98.1 08/28/21 23:43 5.0 I & O 08/28/21 08/28/21 08/29/21 15:00 23:00 07:00 Intake Total 1370 ml 1314 ml Output Total 400 ml 550 ml 250 ml Balance -400 ml 820 ml 1064 ml Physical Exam Physical Exam: GENERAL: Intubated /sedated HEENT: ETT, OGT tube in place. . Anicteric. NECK: Supple. LUNGS: Decreased breath sound. HEART: S1, S2. No murmurs. ABDOMEN: Soft, nondistended, bowel sounds present GENITOURINARY: Jack in place. EXTREMITIES: No pitting edema. DERMATOLOGIC: Warm, dry. No generalized rash. CENTRAL NERVOUS SYSTEM: Intubated and sedated. PSYCHIATRIC: Unable to assess. LINES: Right IJ otherwise no complications.. Art line clean. PIV clean. General: Other (Sedated on the vent) Heart: Regular rate Lungs: Clear Abdomen: Normal bowel sounds Extremities: No clubbing Skin: No rashes Labs Labs: Laboratory Tests Test 08/28/21 11:57 08/28/21 16:23 08/28/21 23:52 08/29/21 06:00 Glucose (Fingerstick) 166 mg/dL (70-99) 186 mg/dL (70-99) 208 mg/dL (70-99) White Blood Count 7.8 x10^3/uL (4.0-11.0) Red Blood Count 3.61 x10^6/uL (3.50-5.40) Hemoglobin 10.3 g/dL (12.0-15.5) Hematocrit 30.8 % (36.0-47.0) Mean Corpuscular Volume 85 fL (79-100) Mean Corpuscular Hemoglobin 29 pg (25-35) Mean Corpuscular Hemoglobin Concent 34 g/dL (31-37) Red Cell Distribution Width 15.6 % (11.5-14.5) Platelet Count 184 x10^3/uL (140-400) Neutrophils (%) (Auto) 89 % (31-73) Lymphocytes (%) (Auto) 6 % (24-48) Monocytes (%) (Auto) 5 % (0-9) Eosinophils (%) (Auto) 0 % (0-3) Basophils (%) (Auto) 0 % (0-3) Neutrophils # (Auto) 6.9 x10^3/uL (1.8-7.7) Lymphocytes # (Auto) 0.5 x10^3/uL (1.0-4.8) Monocytes # (Auto) 0.4 x10^3/uL (0.0-1.1) Eosinophils # (Auto) 0.0 x10^3/uL (0.0-0.7) Basophils # (Auto) 0.0 x10^3/uL (0.0-0.2) Test 08/29/21 06:10 08/29/21 06:30 08/29/21 09:15 Glucose (Fingerstick) 211 mg/dL (70-99) Sodium Level 148 mmol/L (136-145) Potassium Level 3.5 mmol/L (3.5-5.1) Chloride Level 114 mmol/L (98-107) Carbon Dioxide Level 25 mmol/L (21-32) Anion Gap 9 (6-14) Blood Urea Nitrogen 20 mg/dL (7-20) Creatinine 0.7 mg/dL (0.6-1.0) Estimated GFR (Cockcroft-Gault) 84.8 Glucose Level 234 mg/dL (70-99) Calcium Level 7.2 mg/dL (8.5-10.1) Magnesium Level 2.5 mg/dL (1.8-2.4) O2 Saturation 99 % (92-99) Arterial Blood pH 7.48 (7.35-7.45) Arterial Blood pCO2 at Patient Temp 34 mmHg (35-46) Arterial Blood pO2 at Patient Temp 147 mmHg (65-108) Arterial Blood HCO3 25 mmol/L (21-28) Arterial Blood Base Excess 1 mmol/L (-3-3) FiO2 55 Assessment and Plan Assessmemt and Plan Resolving severe anion gap metabolic acidosis (Likely culprit is the Jardiance which can rarely cause severe acidosis) Respiratory failure requiring mechanical intubation ventilation DANIEL Hypernatremia Hypotension Severe sepsis Anemia Diabetes Elevated D-dimer Plan ICU monitoring Vent weaning Trend labs Continue sedation DVT prophylaxis Full code Appreciate subspecialist input CC time 32-minute Comment Review of Relevant I have reviewed the following items marcela (where applicable) has been applied. Medications: Current Medications Medications (Trade) Dose Ordered Sig/Silvia Route PRN Reason Start Time Stop Time Status Last Admin Dose Admin Famotidine (Pepcid Vial) 20 mg BID IVP 08/28/21 21:00 08/29/21 07:46 Justifications for Admission Other Justification LATOYA SEPULVEDA III DO Aug 29, 2021 10:41
--- NOTE | 2021-08-29 11:21 | PDOC ---
PULMONARY PROGRESS NOTES DATE: 08/29/21 TIME: 11:19 Subjective Remains on assist control mode. Currently down to 40% FiO2. Metabolic acidosis significantly resolved. Vitals Vital Signs Date Time Temp Pulse Resp B/P (MAP) Pulse Ox O2 Delivery O2 Flow Rate FiO2 08/29/21 11:00 Ventilator 08/29/21 09:10 100 08/29/21 09:00 92 27 100/56 08/29/21 04:00 98.1 98.1 08/28/21 23:43 5.0 Comments Visual exam done due to COVID-19 viral pneumonia. No paradoxical breathing. Currently sedated. No skin rash no leg edema Labs Laboratory Tests Test 08/27/21 11:21 08/27/21 12:01 08/27/21 12:30 08/27/21 12:40 Glucose (Fingerstick) 375 mg/dL (70-99) 325 mg/dL (70-99) O2 Saturation 96 % (92-99) Arterial Blood pH 7.13 (7.35-7.45) Arterial Blood pCO2 at Patient Temp 33 mmHg (35-46) Arterial Blood pO2 at Patient Temp 85 mmHg (65-108) Arterial Blood HCO3 11 mmol/L (21-28) Arterial Blood Base Excess -18 mmol/L (-3-3) FiO2 70/vent Sodium Level 162 mmol/L (136-145) Potassium Level 3.2 mmol/L (3.5-5.1) Chloride Level 115 mmol/L (98-107) Carbon Dioxide Level 22 mmol/L (21-32) Anion Gap 25 (6-14) Blood Urea Nitrogen 28 mg/dL (7-20) Creatinine 1.1 mg/dL (0.6-1.0) Estimated GFR (Cockcroft-Gault) 50.3 Glucose Level 348 mg/dL (70-99) Calcium Level 6.9 mg/dL (8.5-10.1) Phosphorus Level 1.8 mg/dL (2.6-4.7) Magnesium Level 1.8 mg/dL (1.8-2.4) Test 08/27/21 14:52 08/27/21 16:02 08/27/21 17:12 08/27/21 17:15 Glucose (Fingerstick) 346 mg/dL (70-99) 339 mg/dL (70-99) 337 mg/dL (70-99) Sodium Level 151 mmol/L (136-145) Potassium Level 3.3 mmol/L (3.5-5.1) Chloride Level 111 mmol/L (98-107) Carbon Dioxide Level 24 mmol/L (21-32) Anion Gap 16 (6-14) Blood Urea Nitrogen 22 mg/dL (7-20) Creatinine 1.1 mg/dL (0.6-1.0) Estimated GFR (Cockcroft-Gault) 50.3 Glucose Level 370 mg/dL (70-99) Calcium Level 7.0 mg/dL (8.5-10.1) Phosphorus Level 0.8 mg/dL (2.6-4.7) Magnesium Level 2.4 mg/dL (1.8-2.4) Test 08/27/21 18:22 08/27/21 19:28 08/27/21 20:35 08/27/21 20:40 Glucose (Fingerstick) 297 mg/dL (70-99) 229 mg/dL (70-99) 192 mg/dL (70-99) Sodium Level 152 mmol/L (136-145) Potassium Level 3.5 mmol/L (3.5-5.1) Chloride Level 112 mmol/L (98-107) Carbon Dioxide Level 26 mmol/L (21-32) Anion Gap 14 (6-14) Blood Urea Nitrogen 19 mg/dL (7-20) Creatinine 1.1 mg/dL (0.6-1.0) Estimated GFR (Cockcroft-Gault) 50.3 BUN/Creatinine Ratio 17 (6-20) Glucose Level 194 mg/dL (70-99) Calcium Level 7.1 mg/dL (8.5-10.1) Phosphorus Level 1.3 mg/dL (2.6-4.7) Magnesium Level 2.4 mg/dL (1.8-2.4) Total Bilirubin 0.5 mg/dL (0.2-1.0) Aspartate Amino Transf (AST/SGOT) 49 U/L (15-37) Alanine Aminotransferase (ALT/SGPT) 37 U/L (14-59) Alkaline Phosphatase 121 U/L (46-116) Total Protein 4.9 g/dL (6.4-8.2) Albumin 1.7 g/dL (3.4-5.0) Albumin/Globulin Ratio 0.5 (1.0-1.7) Test 08/27/21 21:31 08/27/21 22:33 08/27/21 23:30 08/28/21 01:41 Glucose (Fingerstick) 169 mg/dL (70-99) 166 mg/dL (70-99) 127 mg/dL (70-99) 161 mg/dL (70-99) Test 08/28/21 03:42 08/28/21 06:00 08/28/21 06:09 08/28/21 07:30 Glucose (Fingerstick) 192 mg/dL (70-99) 145 mg/dL (70-99) White Blood Count 16.9 x10^3/uL (4.0-11.0) Red Blood Count 3.96 x10^6/uL (3.50-5.40) Hemoglobin 11.1 g/dL (12.0-15.5) Hematocrit 32.8 % (36.0-47.0) Mean Corpuscular Volume 83 fL (79-100) Mean Corpuscular Hemoglobin 28 pg (25-35) Mean Corpuscular Hemoglobin Concent 34 g/dL (31-37) Red Cell Distribution Width 15.5 % (11.5-14.5) Platelet Count 273 x10^3/uL (140-400) Neutrophils (%) (Auto) 92 % (31-73) Lymphocytes (%) (Auto) 3 % (24-48) Monocytes (%) (Auto) 5 % (0-9) Eosinophils (%) (Auto) 0 % (0-3) Basophils (%) (Auto) 0 % (0-3) Neutrophils # (Auto) 15.6 x10^3/uL (1.8-7.7) Lymphocytes # (Auto) 0.5 x10^3/uL (1.0-4.8) Monocytes # (Auto) 0.8 x10^3/uL (0.0-1.1) Eosinophils # (Auto) 0.0 x10^3/uL (0.0-0.7) Basophils # (Auto) 0.0 x10^3/uL (0.0-0.2) Sodium Level 147 mmol/L (136-145) Potassium Level 3.8 mmol/L (3.5-5.1) Chloride Level 112 mmol/L (98-107) Carbon Dioxide Level 24 mmol/L (21-32) Anion Gap 11 (6-14) Blood Urea Nitrogen 17 mg/dL (7-20) Creatinine 0.8 mg/dL (0.6-1.0) Estimated GFR (Cockcroft-Gault) 72.7 Glucose Level 157 mg/dL (70-99) Calcium Level 7.2 mg/dL (8.5-10.1) O2 Saturation 94 % (92-99) Arterial Blood pH 7.47 (7.35-7.45) Arterial Blood pCO2 at Patient Temp 32 mmHg (35-46) Arterial Blood pO2 at Patient Temp 63 mmHg (65-108) Arterial Blood HCO3 23 mmol/L (21-28) Arterial Blood Base Excess 0 mmol/L (-3-3) FiO2 100/pcv 18 28 +10 Test 08/28/21 11:57 08/28/21 16:23 08/28/21 23:52 08/29/21 06:00 Glucose (Fingerstick) 166 mg/dL (70-99) 186 mg/dL (70-99) 208 mg/dL (70-99) White Blood Count 7.8 x10^3/uL (4.0-11.0) Red Blood Count 3.61 x10^6/uL (3.50-5.40) Hemoglobin 10.3 g/dL (12.0-15.5) Hematocrit 30.8 % (36.0-47.0) Mean Corpuscular Volume 85 fL (79-100) Mean Corpuscular Hemoglobin 29 pg (25-35) Mean Corpuscular Hemoglobin Concent 34 g/dL (31-37) Red Cell Distribution Width 15.6 % (11.5-14.5) Platelet Count 184 x10^3/uL (140-400) Neutrophils (%) (Auto) 89 % (31-73) Lymphocytes (%) (Auto) 6 % (24-48) Monocytes (%) (Auto) 5 % (0-9) Eosinophils (%) (Auto) 0 % (0-3) Basophils (%) (Auto) 0 % (0-3) Neutrophils # (Auto) 6.9 x10^3/uL (1.8-7.7) Lymphocytes # (Auto) 0.5 x10^3/uL (1.0-4.8) Monocytes # (Auto) 0.4 x10^3/uL (0.0-1.1) Eosinophils # (Auto) 0.0 x10^3/uL (0.0-0.7) Basophils # (Auto) 0.0 x10^3/uL (0.0-0.2) Test 08/29/21 06:10 08/29/21 06:30 08/29/21 09:15 Glucose (Fingerstick) 211 mg/dL (70-99) Sodium Level 148 mmol/L (136-145) Potassium Level 3.5 mmol/L (3.5-5.1) Chloride Level 114 mmol/L (98-107) Carbon Dioxide Level 25 mmol/L (21-32) Anion Gap 9 (6-14) Blood Urea Nitrogen 20 mg/dL (7-20) Creatinine 0.7 mg/dL (0.6-1.0) Estimated GFR (Cockcroft-Gault) 84.8 Glucose Level 234 mg/dL (70-99) Calcium Level 7.2 mg/dL (8.5-10.1) Magnesium Level 2.5 mg/dL (1.8-2.4) O2 Saturation 99 % (92-99) Arterial Blood pH 7.48 (7.35-7.45) Arterial Blood pCO2 at Patient Temp 34 mmHg (35-46) Arterial Blood pO2 at Patient Temp 147 mmHg (65-108) Arterial Blood HCO3 25 mmol/L (21-28) Arterial Blood Base Excess 1 mmol/L (-3-3) FiO2 55 Laboratory Tests Test 08/28/21 11:57 08/28/21 16:23 08/28/21 23:52 08/29/21 06:00 Glucose (Fingerstick) 166 mg/dL (70-99) 186 mg/dL (70-99) 208 mg/dL (70-99) White Blood Count 7.8 x10^3/uL (4.0-11.0) Red Blood Count 3.61 x10^6/uL (3.50-5.40) Hemoglobin 10.3 g/dL (12.0-15.5) Hematocrit 30.8 % (36.0-47.0) Mean Corpuscular Volume 85 fL (79-100) Mean Corpuscular Hemoglobin 29 pg (25-35) Mean Corpuscular Hemoglobin Concent 34 g/dL (31-37) Red Cell Distribution Width 15.6 % (11.5-14.5) Platelet Count 184 x10^3/uL (140-400) Neutrophils (%) (Auto) 89 % (31-73) Lymphocytes (%) (Auto) 6 % (24-48) Monocytes (%) (Auto) 5 % (0-9) Eosinophils (%) (Auto) 0 % (0-3) Basophils (%) (Auto) 0 % (0-3) Neutrophils # (Auto) 6.9 x10^3/uL (1.8-7.7) Lymphocytes # (Auto) 0.5 x10^3/uL (1.0-4.8) Monocytes # (Auto) 0.4 x10^3/uL (0.0-1.1) Eosinophils # (Auto) 0.0 x10^3/uL (0.0-0.7) Basophils # (Auto) 0.0 x10^3/uL (0.0-0.2) Test 08/29/21 06:10 08/29/21 06:30 08/29/21 09:15 Glucose (Fingerstick) 211 mg/dL (70-99) Sodium Level 148 mmol/L (136-145) Potassium Level 3.5 mmol/L (3.5-5.1) Chloride Level 114 mmol/L (98-107) Carbon Dioxide Level 25 mmol/L (21-32) Anion Gap 9 (6-14) Blood Urea Nitrogen 20 mg/dL (7-20) Creatinine 0.7 mg/dL (0.6-1.0) Estimated GFR (Cockcroft-Gault) 84.8 Glucose Level 234 mg/dL (70-99) Calcium Level 7.2 mg/dL (8.5-10.1) Magnesium Level 2.5 mg/dL (1.8-2.4) O2 Saturation 99 % (92-99) Arterial Blood pH 7.48 (7.35-7.45) Arterial Blood pCO2 at Patient Temp 34 mmHg (35-46) Arterial Blood pO2 at Patient Temp 147 mmHg (65-108) Arterial Blood HCO3 25 mmol/L (21-28) Arterial Blood Base Excess 1 mmol/L (-3-3) FiO2 55 Medications Active Scripts Medications Dose Route/Sig Max Daily Dose Days Date Category Aspirin 81 Mg Tab.chew 1 Tab PO DAILY 08/26/21 Reported Codeine-Guaifen 10-100 mg/5 ml (Guaifenesin/Codeine Phosphate) 120 Ml Liquid 5 Ml PO PRN Q6HRS PRN MDD 20 Milliliter(s) 6 08/26/21 Reported Ibuprofen 600 Mg Tablet 600 Mg PO PRN Q8HRS PRN 08/26/21 Reported Ondansetron Odt (Ondansetron) 4 Mg Tab.rapdis 1 Tab PO PRN Q6-8HRS 08/26/21 Reported Benzonatate 100 Mg Capsule 1 Cap PO TID 08/26/21 Reported Carvedilol (Carvedilol) 6.25 Mg Tablet 6.25 Mg PO BIDWMEALS 08/26/21 Reported Levothyroxine Sodium 150 Mcg Tablet 1 Tab PO DAILY 08/26/21 Reported Levofloxacin 750 Mg Tablet 1 Tab PO DAILY PRN 08/26/21 Reported Jardiance (Empagliflozin) 10 Mg Tablet 10 Mg PO DAILY 08/26/21 Reported Lisinopril 20 Mg Tablet 1 Tab PO BID 08/26/21 Reported Metformin Hcl 1,000 Mg Tablet 1,000 Mg PO BIDWMEALS 08/26/21 Reported Crestor (Rosuvastatin Calcium) 40 Mg Tablet 20 Mg PO HS 08/26/21 Reported Ventolin Hfa Inhaler (Albuterol Sulfate) 18 Gm Hfa.aer.ad 2 Puff INH Q4HRS 08/26/21 Reported Brilinta (Ticagrelor) 90 Mg Tablet 90 Mg PO BID 08/26/21 Reported Comments Chest x-ray reviewed 08/29/2021. Bilateral mild interstitial infiltrates. No significant change. Chest x-ray reviewed 08/27/2021 Bilateral diffuse interstitial infiltrates related to COVID-19 viral pneumonia Impression . 1. Acute respiratory failure secondary to severe metabolic acidosis. 2. Severe metabolic acidosis. Likely etiology is Jardiance induced metabolic acidosis versus diabetic ketoacidosis. Her lactic acid was 1.6. She clinically has a component of septic shock as well. 3. Abnormal chest x-ray and CT angiogram with diffuse bilateral patchy infiltrates consistent with viral pneumonia. 4. COVID-19 positive. 5. Severe protein-calorie malnutrition. 6. Marked leukocytosis. 7. Septic shock. 8. Hyponatremia, now improved 9. Severe metabolic acidosis likely secondary to Jardiance induced, with a bicarb of 4 present on admission, now significantly improved Plan . Updated 08/29/2021 1. Discussed with respiratory therapist and RN. At this time, we will continue present assist control mode. Oxygenation is significant improved. Down to 40% FiO2. Will discontinue sedation and once awake will consider CPAP trial. 2. Diabetic ketoacidosis protocol. DKA is resolved now. 3. Off vasopressor support. 4. Status post IV hydration. 5. Off Solu-Medrol. 6. It is too late for remdesivir. 7. Lovenox for DVT prophylaxis. 8. Continue present aggressive treatment. 9. Discussed with RN and RT. Critical care time 30 minutes. RECOMMENDATIONS: 1. Discussed with respiratory therapist and RN. At this time, we will continue present assist control mode. Follow ABGs and make necessary adjustments. Currently on 60% FiO2 and 5 of PEEP. 2. Diabetic ketoacidosis protocol. 3. Continue vasopressor support. 4. IV hydration. 5. Continue low-dose Solu-Medrol for COVID-19. 6. It is too late for remdesivir. 7. Lovenox for DVT prophylaxis. 8. Continue present aggressive treatment. 9. No need for CT abdomen and pelvis. Clinically less likely bowel perforation. Metabolic acidosis has resolved. 10. Discussed with RN and RT. and nephrology cct 30 min ELLYN CALVILLO MD Aug 29, 2021 11:21
--- NOTE | 2021-08-29 14:55 | NUR ---
SS following for discharge planning. SS reviewed pt chart and discussed with pt RN. Pt is from home and is currently on the vent at 40%. COVID19 positive. Pt had DKA. Pt on IV Zosyn and IV Doxycycline. Pt on Propofol and Fentanyl. Possible extubation soon. Not ready. SS will continue to follow for discharge planning.
[2021-08-29] MEDS: INSULIN GLARGINE SYRINGE. SQ SCH (21:49)
[2021-08-29] MEDS ORDERED: ACETAMINOPHEN 650 MG/20.3 ML SOLUTION. PEG ONE (22:00)
[2021-08-30] VITALS (24 sets, daily range): BP systolic 98–150; BP diastolic 1–83
[2021-08-30] MEDS: PIPERACILLIN/TAZOBACTAM 4.5 GM in IV DEXTROSE 5% 100ML 100 ML IV SCH ×4 (00:03→18:49)
[2021-08-30] MEDS: INSULIN LISPRO 300 UNITS/3 ML VIAL. SQ SCH ×8 (00:08→17:30)
[2021-08-30] MEDS ORDERED: ACETAMINOPHEN 650 MG/20.3 ML SOLUTION. PEG PRN (00:30)
[2021-08-30] MEDS: LEVOTHYROXINE 150 MCG TABLET PO SCH (05:59)
[2021-08-30 06:34] LABS: BASO % 0 % (0-3); EOS % 0 % (0-3); HEMATOCRIT 32.2 % (36.0-47.0); HEMOGLOBIN 10.7 g/dL (12.0-15.5); LYMPH # 0.5 x10^3/uL (1.0-4.8); LYMPH % 5 % (24-48); MEAN CORPUSCULAR HEMOGLOBIN 28 pg (25-35); MEAN CORPUSCULAR HGB CONC 33 g/dL (31-37); MEAN CORPUSCULAR VOLUME 85 fL (79-100); MONO # 0.3 x10^3/uL (0.0-1.1); MONO % 3 % (0-9); NEUT # 9.4 x10^3/uL (1.8-7.7); NEUT % 92 % (31-73); PLATELET COUNT 161 x10^3/uL (140-400); RED BLOOD COUNT 3.78 x10^6/uL (3.50-5.40); RED CELL DISTRIBUTION WIDTH 15.7 % (11.5-14.5); WHITE BLOOD COUNT 10.2 x10^3/uL (4.0-11.0)
[2021-08-30 06:45] LABS: CREATININE 0.7 mg/dL (0.6-1.0); GFR 84.8; MAGNESIUM 2.2 mg/dL (1.8-2.4)
[2021-08-30] MEDS: MULTIVITAMIN with MINERAL TABLET. PO SCH (08:35)
[2021-08-30] MEDS: FAMOTIDINE 20 MG/2 ML VIAL IVP SCH ×2 (08:35→21:20)
[2021-08-30] MEDS: ENOXAPARIN 40 MG/0.4 ML SYRINGE. SQ SCH (08:35)
[2021-08-30] MEDS: DOXYCYCLINE HYCLATE 100 MG in IV DEXTROSE 5% 100ML 100 ML IV SCH ×2 (08:36→21:21)
[2021-08-30 09:00] LABS: BASE EXCESS ABG 4 mmol/L (-3-3); HCO3 ABG 27 mmol/L (21-28); PCO2 ABG 35 mmHg (35-46); PO2 ABG 73 mmHg (65-108); SAT O2 ABG 96 % (92-99)
[2021-08-30 09:03] LABS: FIO2 ABG 40
--- NOTE | 2021-08-30 09:28 | PDOC ---
PULMONARY PROGRESS NOTES DATE: 08/30/21 TIME: 09:28 Subjective Remains on assist control mode. Currently down to 40% FiO2. Metabolic acidosis significantly resolved. Vitals Vital Signs Date Time Temp Pulse Resp B/P (MAP) Pulse Ox O2 Delivery O2 Flow Rate FiO2 08/30/21 08:39 97 Ventilator 08/30/21 07:00 90 28 108/58 08/30/21 05:00 98.4 98.4 Comments Visual exam done due to COVID-19 viral pneumonia. No paradoxical breathing. Currently sedated. No skin rash no leg edema Labs Laboratory Tests Test 08/28/21 11:57 08/28/21 16:23 08/28/21 23:52 08/29/21 06:00 Glucose (Fingerstick) 166 mg/dL (70-99) 186 mg/dL (70-99) 208 mg/dL (70-99) White Blood Count 7.8 x10^3/uL (4.0-11.0) Red Blood Count 3.61 x10^6/uL (3.50-5.40) Hemoglobin 10.3 g/dL (12.0-15.5) Hematocrit 30.8 % (36.0-47.0) Mean Corpuscular Volume 85 fL (79-100) Mean Corpuscular Hemoglobin 29 pg (25-35) Mean Corpuscular Hemoglobin Concent 34 g/dL (31-37) Red Cell Distribution Width 15.6 % (11.5-14.5) Platelet Count 184 x10^3/uL (140-400) Neutrophils (%) (Auto) 89 % (31-73) Lymphocytes (%) (Auto) 6 % (24-48) Monocytes (%) (Auto) 5 % (0-9) Eosinophils (%) (Auto) 0 % (0-3) Basophils (%) (Auto) 0 % (0-3) Neutrophils # (Auto) 6.9 x10^3/uL (1.8-7.7) Lymphocytes # (Auto) 0.5 x10^3/uL (1.0-4.8) Monocytes # (Auto) 0.4 x10^3/uL (0.0-1.1) Eosinophils # (Auto) 0.0 x10^3/uL (0.0-0.7) Basophils # (Auto) 0.0 x10^3/uL (0.0-0.2) Test 08/29/21 06:10 08/29/21 06:30 08/29/21 09:15 08/29/21 12:39 Glucose (Fingerstick) 211 mg/dL (70-99) 278 mg/dL (70-99) Sodium Level 148 mmol/L (136-145) Potassium Level 3.5 mmol/L (3.5-5.1) Chloride Level 114 mmol/L (98-107) Carbon Dioxide Level 25 mmol/L (21-32) Anion Gap 9 (6-14) Blood Urea Nitrogen 20 mg/dL (7-20) Creatinine 0.7 mg/dL (0.6-1.0) Estimated GFR (Cockcroft-Gault) 84.8 Glucose Level 234 mg/dL (70-99) Calcium Level 7.2 mg/dL (8.5-10.1) Magnesium Level 2.5 mg/dL (1.8-2.4) O2 Saturation 99 % (92-99) Arterial Blood pH 7.48 (7.35-7.45) Arterial Blood pCO2 at Patient Temp 34 mmHg (35-46) Arterial Blood pO2 at Patient Temp 147 mmHg (65-108) Arterial Blood HCO3 25 mmol/L (21-28) Arterial Blood Base Excess 1 mmol/L (-3-3) FiO2 55 Test 08/30/21 00:06 08/30/21 05:37 08/30/21 06:05 08/30/21 08:40 Glucose (Fingerstick) 271 mg/dL (70-99) 228 mg/dL (70-99) White Blood Count 10.2 x10^3/uL (4.0-11.0) Red Blood Count 3.78 x10^6/uL (3.50-5.40) Hemoglobin 10.7 g/dL (12.0-15.5) Hematocrit 32.2 % (36.0-47.0) Mean Corpuscular Volume 85 fL (79-100) Mean Corpuscular Hemoglobin 28 pg (25-35) Mean Corpuscular Hemoglobin Concent 33 g/dL (31-37) Red Cell Distribution Width 15.7 % (11.5-14.5) Platelet Count 161 x10^3/uL (140-400) Neutrophils (%) (Auto) 92 % (31-73) Lymphocytes (%) (Auto) 5 % (24-48) Monocytes (%) (Auto) 3 % (0-9) Eosinophils (%) (Auto) 0 % (0-3) Basophils (%) (Auto) 0 % (0-3) Neutrophils # (Auto) 9.4 x10^3/uL (1.8-7.7) Lymphocytes # (Auto) 0.5 x10^3/uL (1.0-4.8) Monocytes # (Auto) 0.3 x10^3/uL (0.0-1.1) Eosinophils # (Auto) 0.0 x10^3/uL (0.0-0.7) Basophils # (Auto) 0.0 x10^3/uL (0.0-0.2) Sodium Level 146 mmol/L (136-145) Potassium Level 3.0 mmol/L (3.5-5.1) Chloride Level 110 mmol/L (98-107) Carbon Dioxide Level 27 mmol/L (21-32) Anion Gap 9 (6-14) Blood Urea Nitrogen 15 mg/dL (7-20) Creatinine 0.7 mg/dL (0.6-1.0) Estimated GFR (Cockcroft-Gault) 84.8 Glucose Level 253 mg/dL (70-99) Calcium Level 8.0 mg/dL (8.5-10.1) Magnesium Level 2.2 mg/dL (1.8-2.4) O2 Saturation 96 % (92-99) Arterial Blood pH 7.51 (7.35-7.45) Arterial Blood pCO2 at Patient Temp 35 mmHg (35-46) Arterial Blood pO2 at Patient Temp 73 mmHg (65-108) Arterial Blood HCO3 27 mmol/L (21-28) Arterial Blood Base Excess 4 mmol/L (-3-3) FiO2 40 Laboratory Tests Test 08/29/21 12:39 08/30/21 00:06 08/30/21 05:37 08/30/21 06:05 Glucose (Fingerstick) 278 mg/dL (70-99) 271 mg/dL (70-99) 228 mg/dL (70-99) White Blood Count 10.2 x10^3/uL (4.0-11.0) Red Blood Count 3.78 x10^6/uL (3.50-5.40) Hemoglobin 10.7 g/dL (12.0-15.5) Hematocrit 32.2 % (36.0-47.0) Mean Corpuscular Volume 85 fL (79-100) Mean Corpuscular Hemoglobin 28 pg (25-35) Mean Corpuscular Hemoglobin Concent 33 g/dL (31-37) Red Cell Distribution Width 15.7 % (11.5-14.5) Platelet Count 161 x10^3/uL (140-400) Neutrophils (%) (Auto) 92 % (31-73) Lymphocytes (%) (Auto) 5 % (24-48) Monocytes (%) (Auto) 3 % (0-9) Eosinophils (%) (Auto) 0 % (0-3) Basophils (%) (Auto) 0 % (0-3) Neutrophils # (Auto) 9.4 x10^3/uL (1.8-7.7) Lymphocytes # (Auto) 0.5 x10^3/uL (1.0-4.8) Monocytes # (Auto) 0.3 x10^3/uL (0.0-1.1) Eosinophils # (Auto) 0.0 x10^3/uL (0.0-0.7) Basophils # (Auto) 0.0 x10^3/uL (0.0-0.2) Sodium Level 146 mmol/L (136-145) Potassium Level 3.0 mmol/L (3.5-5.1) Chloride Level 110 mmol/L (98-107) Carbon Dioxide Level 27 mmol/L (21-32) Anion Gap 9 (6-14) Blood Urea Nitrogen 15 mg/dL (7-20) Creatinine 0.7 mg/dL (0.6-1.0) Estimated GFR (Cockcroft-Gault) 84.8 Glucose Level 253 mg/dL (70-99) Calcium Level 8.0 mg/dL (8.5-10.1) Magnesium Level 2.2 mg/dL (1.8-2.4) Test 08/30/21 08:40 O2 Saturation 96 % (92-99) Arterial Blood pH 7.51 (7.35-7.45) Arterial Blood pCO2 at Patient Temp 35 mmHg (35-46) Arterial Blood pO2 at Patient Temp 73 mmHg (65-108) Arterial Blood HCO3 27 mmol/L (21-28) Arterial Blood Base Excess 4 mmol/L (-3-3) FiO2 40 Medications Active Scripts Medications Dose Route/Sig Max Daily Dose Days Date Category Aspirin 81 Mg Tab.chew 1 Tab PO DAILY 08/26/21 Reported Codeine-Guaifen 10-100 mg/5 ml (Guaifenesin/Codeine Phosphate) 120 Ml Liquid 5 Ml PO PRN Q6HRS PRN MDD 20 Milliliter(s) 6 08/26/21 Reported Ibuprofen 600 Mg Tablet 600 Mg PO PRN Q8HRS PRN 08/26/21 Reported Ondansetron Odt (Ondansetron) 4 Mg Tab.rapdis 1 Tab PO PRN Q6-8HRS 08/26/21 Reported Benzonatate 100 Mg Capsule 1 Cap PO TID 08/26/21 Reported Carvedilol (Carvedilol) 6.25 Mg Tablet 6.25 Mg PO BIDWMEALS 08/26/21 Reported Levothyroxine Sodium 150 Mcg Tablet 1 Tab PO DAILY 08/26/21 Reported Levofloxacin 750 Mg Tablet 1 Tab PO DAILY PRN 08/26/21 Reported Jardiance (Empagliflozin) 10 Mg Tablet 10 Mg PO DAILY 08/26/21 Reported Lisinopril 20 Mg Tablet 1 Tab PO BID 08/26/21 Reported Metformin Hcl 1,000 Mg Tablet 1,000 Mg PO BIDWMEALS 08/26/21 Reported Crestor (Rosuvastatin Calcium) 40 Mg Tablet 20 Mg PO HS 08/26/21 Reported Ventolin Hfa Inhaler (Albuterol Sulfate) 18 Gm Hfa.aer.ad 2 Puff INH Q4HRS 08/26/21 Reported Brilinta (Ticagrelor) 90 Mg Tablet 90 Mg PO BID 08/26/21 Reported Comments Chest x-ray reviewed 08/29/2021. Bilateral mild interstitial infiltrates. No significant change. Chest x-ray reviewed 08/27/2021 Bilateral diffuse interstitial infiltrates related to COVID-19 viral pneumonia Impression . 1. Acute respiratory failure multifactorial 2. Severe metabolic acidosis. Likely etiology is Jardiance induced metabolic acidosis versus diabetic ketoacidosis. Her lactic acid was 1.6. She clinically has a component of septic shock as well. 3. Abnormal chest x-ray and CT angiogram with diffuse bilateral patchy infiltrates consistent with viral pneumonia. 4. COVID-19 positive. 5. Severe protein-calorie malnutrition. 6. Marked leukocytosis. 7. Septic shock. 8. Hyponatremia, now improved 9. Severe metabolic acidosis likely secondary to Jardiance induced, with a bicarb of 4 present on admission, now significantly improved 10. Negative CT for pulmonary embolism Plan . Updated 08/30 Labs reviewed white count normal ABG noted Bicarb 27 Discussed with RN, did not do well I trial this morning will reattempt trial later today or tomorrow morning DVT prophylaxis Discussed with RN and RT Empiric antibiotics Steroids Negative CT chest for PE updated 08/29/2021 1. Discussed with respiratory therapist and RN. At this time, we will continue present assist control mode. Oxygenation is significant improved. Down to 40% FiO2. Will discontinue sedation and once awake will consider CPAP trial. 2. Diabetic ketoacidosis protocol. DKA is resolved now. 3. Off vasopressor support. 4. Status post IV hydration. 5. Off Solu-Medrol. 6. It is too late for remdesivir. 7. Lovenox for DVT prophylaxis. 8. Continue present aggressive treatment. 9. Discussed with RN and RT. Critical care time 30 minutes. JEROME AGUILERA MD Aug 30, 2021 09:28
--- NOTE | 2021-08-30 09:33 | PDOC ---
DATE OF SERVICE DATE: 08/30/21 TIME: 09:29 SUBJECTIVE ROS Intubated/Sedated OBJECTIVE Vital Signs Vital Signs Date Time Temp Pulse Resp B/P (MAP) Pulse Ox O2 Delivery O2 Flow Rate FiO2 08/30/21 08:39 97 Ventilator 08/30/21 07:00 90 28 108/58 08/30/21 05:00 98.4 98.4 I & 0 Intake and Output 08/30/21 07:00 Intake Total 2664 ml Output Total 775 ml Balance 1889 ml Intake IV Total 780 ml Tube Feeding 924 ml Other 960 ml Output Urine Total 775 ml PHYSICAL EXAM Physical Exam GENERAL: Intubated /sedated HEENT: ETT, OGT tube in place. . Anicteric. NECK: Supple. LUNGS: Decreased breath sound. HEART: S1, S2. No murmurs. ABDOMEN: Soft, nondistended, bowel sounds present : Jack in place. EXTREM: No pitting edema. DERM: Warm, dry. No generalized rash. NEURO: Intubated and sedated. PSYCHIATRIC: Unable to assess. DIAGNOSIS/ASSESSMENT Assessment & Plan Metabolic acidosis - Wide anion gap POA, Severe Sepsis, Acidosis Improved. Monitor off IV bicarb DANIEL - POA Vasomotor , associated with intravascular volume depletion, hypotension, contrast nephropathy:Resolved . Good UOP Hypernatremia improving , Mild . Increase water flushes with TF if tolerates HypoKalemia- replace Hypotension POA- Off pressor support Severe sepsis Acute hypoxic respiratory failure, status post intubation. Anemia- Hgb trending down (? initial likely [place]), stable currently Diabetes mellitus,likely DKA COVID-19 positive [employer] for 10-15 days,been at numerous EDs with abnormal chest x-ray and CTA, Elevated D-dimer.CTA negative for PE Will sign Off COMMENT/RELEVANT DATA Meds Current Medications Medications (Trade) Dose Ordered Sig/Silvia Start Time Stop Time Status Last Admin Dose Admin Acetaminophen (Tylenol) 650 mg PRN Q6HRS PRN 08/30/21 00:30 08/30/21 03:55 650 MG Ceftriaxone Sodium (Rocephin) 1 gm Q24H 08/26/21 21:00 08/27/21 00:25 DC 08/26/21 22:22 1 GM Dexamethasone Sodium Phosphate (Decadron) 10 mg 1X ONCE 08/26/21 16:00 08/26/21 16:01 DC 08/26/21 16:00 10 MG Dextrose (Dextrose 50%-Water Syringe) 12.5 gm PRN Q15MIN PRN 08/27/21 22:30 Doxycycline Hyclate 100 mg/ Dextrose 100 ml @ 50 mls/hr Q12HR 08/26/21 21:00 08/30/21 08:36 50 MLS/HR Enoxaparin Sodium (Lovenox 40mg Syringe) 40 mg DAILY 08/27/21 09:00 08/30/21 08:35 40 MG Famotidine (Pepcid Vial) 20 mg BID 08/28/21 21:00 08/30/21 08:35 20 MG Fentanyl Citrate 30 ml @ 2.5 mls/hr CONT PRN 08/27/21 05:30 08/29/21 11:00 2.5 MLS/HR Info (CONTRAST GIVEN -- Rx MONITORING) 1 each PRN DAILY PRN 08/26/21 16:30 08/28/21 16:29 DC Insulin Glargine (Lantus Syringe) 25 unit QHS 08/27/21 23:00 08/29/21 21:49 25 UNIT Insulin Human Lispro (HumaLOG) 5 units Q6HRS 08/28/21 00:00 08/30/21 06:00 5 UNITS Insulin Human Regular 100 unit/ Sodium Chloride 101 ml @ 0 mls/hr CONT PRN PRN 08/27/21 09:30 08/28/21 12:31 DC 08/27/21 17:07 19.5 MLS/HR Iohexol (Omnipaque 350 Mg/ml) 90 ml 1X ONCE 08/26/21 16:30 08/26/21 16:31 DC 08/26/21 16:41 90 ML Levothyroxine Sodium (Synthroid) 150 mcg DAILY06 08/28/21 06:00 08/30/21 05:59 150 MCG Magnesium Sulfate 50 ml @ 25 mls/hr PRN DAILY PRN 08/28/21 08:45 Methylprednisolone Sodium Succinate (SOLU-Medrol 40MG VIAL) 40 mg BID 08/26/21 21:00 08/27/21 17:06 DC 08/27/21 08:51 40 MG Midazolam HCl (Versed) 5 mg PRN 1X PRN 08/27/21 05:30 08/28/21 05:29 DC Multivitamins (Thera M Plus) 1 tab DAILY 08/27/21 09:00 08/30/21 08:35 1 TAB Norepinephrine Bitartrate 8 mg/ Dextrose 258 ml @ 12.984 mls/ hr CONT PRN 08/27/21 08:00 08/27/21 13:19 12.984 MLS/HR Piperacillin Sod/ Tazobactam Sod (Zosyn Per Pharmacy) 1 each PRN DAILY PRN 08/27/21 00:30 Piperacillin Sod/ Tazobactam Sod 4.5 gm/Dextrose 100 ml @ 200 mls/hr Q6HRS 08/27/21 01:00 08/30/21 05:59 200 MLS/HR Potassium Chloride/Water 100 ml @ 100 mls/hr 1X ONCE 08/27/21 19:00 08/27/21 19:59 DC 08/27/21 19:28 100 MLS/HR Potassium Phosphate 15 mmol/ Sodium Chloride 105 ml @ 52.5 mls/hr Q2H 08/27/21 23:00 08/28/21 02:59 DC 08/28/21 01:56 52.5 MLS/HR Propofol (Diprivan) 1,000 mg STK-MED ONCE 08/27/21 06:00 08/30/21 09:04 DC Sodium Bicarbonate 100 meq/Dextrose 1,100 ml @ 200 mls/hr Q5H30M 08/27/21 13:00 08/27/21 18:44 DC 08/27/21 12:25 200 MLS/HR Sodium Bicarbonate 150 meq/Dextrose 1,150 ml @ 200 mls/hr Q5H45M 08/27/21 06:30 08/27/21 11:58 DC 08/27/21 06:30 200 MLS/HR Sodium Bicarbonate 50 meq/Sodium Chloride 1,050 ml @ 200 mls/hr Q5H15M 08/26/21 21:00 08/26/21 23:59 DC Sodium Bicarbonate (Sodium Bicarb Adult 8.4% Syr) 50 meq Q1HR 08/27/21 12:00 08/27/21 15:01 DC 08/27/21 16:07 50 MEQ Sodium Chloride 1,000 ml @ 250 mls/hr Q4H 08/27/21 18:00 08/27/21 22:48 DC 08/27/21 18:14 250 MLS/HR Vecuronium [place] (Norcuron Bolus) 6 mg PRN 1X PRN 08/27/21 05:30 08/27/21 06:28 DC 08/27/21 06:28 6 MG Lab Laboratory Tests Test 08/29/21 12:39 08/30/21 00:06 08/30/21 05:37 08/30/21 06:05 Glucose (Fingerstick) 278 mg/dL (70-99) 271 mg/dL (70-99) 228 mg/dL (70-99) White Blood Count 10.2 x10^3/uL (4.0-11.0) Red Blood Count 3.78 x10^6/uL (3.50-5.40) Hemoglobin 10.7 g/dL (12.0-15.5) Hematocrit 32.2 % (36.0-47.0) Mean Corpuscular Volume 85 fL (79-100) Mean Corpuscular Hemoglobin 28 pg (25-35) Mean Corpuscular Hemoglobin Concent 33 g/dL (31-37) Red Cell Distribution Width 15.7 % (11.5-14.5) Platelet Count 161 x10^3/uL (140-400) Neutrophils (%) (Auto) 92 % (31-73) Lymphocytes (%) (Auto) 5 % (24-48) Monocytes (%) (Auto) 3 % (0-9) Eosinophils (%) (Auto) 0 % (0-3) Basophils (%) (Auto) 0 % (0-3) Neutrophils # (Auto) 9.4 x10^3/uL (1.8-7.7) Lymphocytes # (Auto) 0.5 x10^3/uL (1.0-4.8) Monocytes # (Auto) 0.3 x10^3/uL (0.0-1.1) Eosinophils # (Auto) 0.0 x10^3/uL (0.0-0.7) Basophils # (Auto) 0.0 x10^3/uL (0.0-0.2) Sodium Level 146 mmol/L (136-145) Potassium Level 3.0 mmol/L (3.5-5.1) Chloride Level 110 mmol/L (98-107) Carbon Dioxide Level 27 mmol/L (21-32) Anion Gap 9 (6-14) Blood Urea Nitrogen 15 mg/dL (7-20) Creatinine 0.7 mg/dL (0.6-1.0) Estimated GFR (Cockcroft-Gault) 84.8 Glucose Level 253 mg/dL (70-99) Calcium Level 8.0 mg/dL (8.5-10.1) Magnesium Level 2.2 mg/dL (1.8-2.4) Test 08/30/21 08:40 O2 Saturation 96 % (92-99) Arterial Blood pH 7.51 (7.35-7.45) Arterial Blood pCO2 at Patient Temp 35 mmHg (35-46) Arterial Blood pO2 at Patient Temp 73 mmHg (65-108) Arterial Blood HCO3 27 mmol/L (21-28) Arterial Blood Base Excess 4 mmol/L (-3-3) FiO2 40 Results All relevant outside records, renal labs, imaging studies, telemetry/EKG's were reviewed. Justicifation of Admission Dx: Justifications for Admission: Justification of Admission Dx: N/A MARIANNA SHARMA MD Aug 30, 2021 09:33
--- NOTE | 2021-08-30 09:44 | PDOC ---
Infectious Disease Note Subjective: Subjective Patient intubated/sedated Discussed with RN Vital Signs: Vital Signs Vital Signs Date Time Temp Pulse Resp B/P (MAP) Pulse Ox O2 Delivery O2 Flow Rate FiO2 08/30/21 08:39 97 Ventilator 08/30/21 07:00 90 28 108/58 08/30/21 05:00 98.4 98.4 Physical Exam: PHYSICAL EXAM GENERAL: Intubated /sedated HEENT: ETT, OGT tube in place. . Anicteric. NECK: Supple. LUNGS: Decreased breath sound. HEART: S1, S2. No murmurs. ABDOMEN: Soft, nondistended, bowel sounds present GENITOURINARY: Jack in place. EXTREMITIES: No pitting edema. DERMATOLOGIC: Warm, dry. No generalized rash. CENTRAL NERVOUS SYSTEM: Intubated and sedated. PSYCHIATRIC: Unable to assess. LINES: Right IJ otherwise no complications.. Art line clean. PIV clean. Medications: Inpatient Meds: Medications reviewed. Labs: Lab Laboratory Tests Test 08/29/21 12:39 08/30/21 00:06 08/30/21 05:37 08/30/21 06:05 Glucose (Fingerstick) 278 mg/dL (70-99) 271 mg/dL (70-99) 228 mg/dL (70-99) White Blood Count 10.2 x10^3/uL (4.0-11.0) Red Blood Count 3.78 x10^6/uL (3.50-5.40) Hemoglobin 10.7 g/dL (12.0-15.5) Hematocrit 32.2 % (36.0-47.0) Mean Corpuscular Volume 85 fL (79-100) Mean Corpuscular Hemoglobin 28 pg (25-35) Mean Corpuscular Hemoglobin Concent 33 g/dL (31-37) Red Cell Distribution Width 15.7 % (11.5-14.5) Platelet Count 161 x10^3/uL (140-400) Neutrophils (%) (Auto) 92 % (31-73) Lymphocytes (%) (Auto) 5 % (24-48) Monocytes (%) (Auto) 3 % (0-9) Eosinophils (%) (Auto) 0 % (0-3) Basophils (%) (Auto) 0 % (0-3) Neutrophils # (Auto) 9.4 x10^3/uL (1.8-7.7) Lymphocytes # (Auto) 0.5 x10^3/uL (1.0-4.8) Monocytes # (Auto) 0.3 x10^3/uL (0.0-1.1) Eosinophils # (Auto) 0.0 x10^3/uL (0.0-0.7) Basophils # (Auto) 0.0 x10^3/uL (0.0-0.2) Sodium Level 146 mmol/L (136-145) Potassium Level 3.0 mmol/L (3.5-5.1) Chloride Level 110 mmol/L (98-107) Carbon Dioxide Level 27 mmol/L (21-32) Anion Gap 9 (6-14) Blood Urea Nitrogen 15 mg/dL (7-20) Creatinine 0.7 mg/dL (0.6-1.0) Estimated GFR (Cockcroft-Gault) 84.8 Glucose Level 253 mg/dL (70-99) Calcium Level 8.0 mg/dL (8.5-10.1) Magnesium Level 2.2 mg/dL (1.8-2.4) Test 08/30/21 08:40 O2 Saturation 96 % (92-99) Arterial Blood pH 7.51 (7.35-7.45) Arterial Blood pCO2 at Patient Temp 35 mmHg (35-46) Arterial Blood pO2 at Patient Temp 73 mmHg (65-108) Arterial Blood HCO3 27 mmol/L (21-28) Arterial Blood Base Excess 4 mmol/L (-3-3) FiO2 40 Objective: Assessment: 1. Severe sepsis. Hypotension on pressors 2. Acute hypoxic respiratory failure, status post intubation. 3. Severe metabolic acidosis. Resolved. Hypernatremia improved 4. 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 Leukocytosis, on steroids. Improving 7. Elevated D-dimer.CTA negative for PE Plan: Plan of Care 1. Continue Zosyn and doxycycline. 2. Follow-up labs and cultures 3. continue supportive care 4. COVID management per primary, on Steroids 5. Monitor labs and cultures. 6. Awaiting weaning trial Discussed with nursing staff. FIDEL HILL MD Aug 30, 2021 09:44
--- NOTE | 2021-08-30 10:47 | PDOC ---
[facility] [facility] PROGRESS NOTE Date of Service DOS: DATE: 08/30/21 TIME: 10:44 Chief Complaint Chief Complaint Resolving severe anion gap metabolic acidosis (Likely culprit is the Jardiance which can rarely cause severe acidosis) Respiratory failure requiring mechanical intubation ventilation DANIEL Hypernatremia Hypotension Severe sepsis Anemia Diabetes Elevated D-dimer History of Present Illness History of Present Illness 08/30/2021 Patient seen and examined in the ICU She remains on the vent AC/20/400/40 percent with 5 of PEEP Art line showing pressure of 167/91 Has IV Zosyn hanging OG feed running at 35 cc an hour Sedated with propofol Discussed with pharmacy Discussed with RN Chart reviewed 08/29/2021 Patient seen and examined in the ICU She is still on mechanical ventilation AC/20/400/50 5% with 6 of PEEP Sedated with fentanyl and Versed and propofol Has IV Levophed hanging Also on IV doxycycline currently Discussed with RN Chart reviewed Vitals/I&O Vitals/I&O: Vital Signs Date Time Temp Pulse Resp B/P (MAP) Pulse Ox O2 Delivery O2 Flow Rate FiO2 08/30/21 10:00 90 29 148/76 97 Ventilator 08/30/21 09:00 98.3 98.3 I & O 08/29/21 08/29/21 08/30/21 15:00 23:00 07:00 Intake Total 440 ml 1415 ml 809 ml Output Total 600 ml 175 ml Balance 440 ml 815 ml 634 ml Physical Exam Physical Exam: GENERAL: Intubated /sedated HEENT: ETT, OGT tube in place. . Anicteric. NECK: Supple. LUNGS: Decreased breath sound. HEART: S1, S2. No murmurs. ABDOMEN: Soft, nondistended, bowel sounds present GENITOURINARY: Jack in place. EXTREMITIES: No pitting edema. DERMATOLOGIC: Warm, dry. No generalized rash. CENTRAL NERVOUS SYSTEM: Intubated and sedated. PSYCHIATRIC: Unable to assess. LINES: Right IJ otherwise no complications.. Art line clean. PIV clean. General: Other (Sedated on the vent) Heart: Regular rate Abdomen: Normal bowel sounds Extremities: No clubbing Skin: No rashes Labs Labs: Laboratory Tests Test 08/29/21 12:39 08/30/21 00:06 08/30/21 05:37 08/30/21 06:05 Glucose (Fingerstick) 278 mg/dL (70-99) 271 mg/dL (70-99) 228 mg/dL (70-99) White Blood Count 10.2 x10^3/uL (4.0-11.0) Red Blood Count 3.78 x10^6/uL (3.50-5.40) Hemoglobin 10.7 g/dL (12.0-15.5) Hematocrit 32.2 % (36.0-47.0) Mean Corpuscular Volume 85 fL (79-100) Mean Corpuscular Hemoglobin 28 pg (25-35) Mean Corpuscular Hemoglobin Concent 33 g/dL (31-37) Red Cell Distribution Width 15.7 % (11.5-14.5) Platelet Count 161 x10^3/uL (140-400) Neutrophils (%) (Auto) 92 % (31-73) Lymphocytes (%) (Auto) 5 % (24-48) Monocytes (%) (Auto) 3 % (0-9) Eosinophils (%) (Auto) 0 % (0-3) Basophils (%) (Auto) 0 % (0-3) Neutrophils # (Auto) 9.4 x10^3/uL (1.8-7.7) Lymphocytes # (Auto) 0.5 x10^3/uL (1.0-4.8) Monocytes # (Auto) 0.3 x10^3/uL (0.0-1.1) Eosinophils # (Auto) 0.0 x10^3/uL (0.0-0.7) Basophils # (Auto) 0.0 x10^3/uL (0.0-0.2) Sodium Level 146 mmol/L (136-145) Potassium Level 3.0 mmol/L (3.5-5.1) Chloride Level 110 mmol/L (98-107) Carbon Dioxide Level 27 mmol/L (21-32) Anion Gap 9 (6-14) Blood Urea Nitrogen 15 mg/dL (7-20) Creatinine 0.7 mg/dL (0.6-1.0) Estimated GFR (Cockcroft-Gault) 84.8 Glucose Level 253 mg/dL (70-99) Calcium Level 8.0 mg/dL (8.5-10.1) Magnesium Level 2.2 mg/dL (1.8-2.4) Test 08/30/21 08:40 O2 Saturation 96 % (92-99) Arterial Blood pH 7.51 (7.35-7.45) Arterial Blood pCO2 at Patient Temp 35 mmHg (35-46) Arterial Blood pO2 at Patient Temp 73 mmHg (65-108) Arterial Blood HCO3 27 mmol/L (21-28) Arterial Blood Base Excess 4 mmol/L (-3-3) FiO2 40 Assessment and Plan Assessmemt and Plan Resolving severe anion gap metabolic acidosis (Likely culprit is the Jardiance which can rarely cause severe acidosis) Respiratory failure requiring mechanical intubation ventilation DANIEL Hypernatremia Hypotension Severe sepsis Anemia Diabetes Elevated D-dimer Plan ICU monitoring Hope to wean off vent soon Trend labs IV Zosyn IV doxy Continue OG feeds Accu-Cheks IV Pepcid for GI prophylaxis Continue as needed sedation DVT prophylaxis Full code Appreciate subspecialist input (Ashlie nephrology and ID are following) Prognosis improving CC time 31-minute Comment Review of Relevant I have reviewed the following items marcela (where applicable) has been applied. Medications: Current Medications Medications (Trade) Dose Ordered Sig/Silvia Route PRN Reason Start Time Stop Time Status Last Admin Dose Admin Acetaminophen (Tylenol) 650 mg 1X ONCE PEG 08/29/21 22:00 08/30/21 00:28 DC 08/29/21 22:00 Acetaminophen (Tylenol) 650 mg PRN Q6HRS PRN PEG MILD PAIN / TEMP > 100.3'F 08/30/21 00:30 08/30/21 03:55 Justifications for Admission Other Justification LATOYA SEPULVEDA III DO Aug 30, 2021 10:47
--- NOTE | 2021-08-30 13:41 | NUR ---
propofol and tube feed paused earlier for trial, pt respiratory rate increased to the high 30s, propofol and tube feed restarted. notified dr lora, he said we will try tomorrow.
[2021-08-30] MEDS: POTASSIUM CHLORIDE 20MEQ 100 ML IV SCH ×4 (15:17→19:29)
--- NOTE | 2021-08-30 16:34 | NUR ---
SS following up with discharge planning. SS reviewed pt chart and discussed with pt RN. Pt is currently on the vent at 40%. COVID19 positive. Pt on IV Zosyn and IV Doxycycline. Pt on Propofol. Possible extubation soon. Not ready. SS will continue to follow for discharge planning.
[2021-08-30] MEDS: INSULIN GLARGINE SYRINGE. SQ SCH (21:22)
[2021-08-31] VITALS (25 sets, daily range): BP systolic 84–149; BP diastolic 52–78
[2021-08-31] MEDS: PIPERACILLIN/TAZOBACTAM 4.5 GM in IV DEXTROSE 5% 100ML 100 ML IV SCH ×4 (00:02→17:37)
[2021-08-31] MEDS: INSULIN LISPRO 300 UNITS/3 ML VIAL. SQ SCH ×8 (00:03→17:39)
[2021-08-31] MEDS: PROPOFOL 100 ML IV PRN ×3 (00:43→17:37)
[2021-08-31] MEDS: LEVOTHYROXINE 150 MCG TABLET PO SCH (05:29)
[2021-08-31 06:06] LABS: BASO % 0 % (0-3); EOS # 0.1 x10^3/uL (0.0-0.7); EOS % 1 % (0-3); HEMOGLOBIN 10.8 g/dL (12.0-15.5); LYMPH # 0.7 x10^3/uL (1.0-4.8); LYMPH % 7 % (24-48); MEAN CORPUSCULAR HEMOGLOBIN 29 pg (25-35); MEAN CORPUSCULAR HGB CONC 34 g/dL (31-37); MEAN CORPUSCULAR VOLUME 86 fL (79-100); MONO # 0.5 x10^3/uL (0.0-1.1); MONO % 5 % (0-9); NEUT # 9.1 x10^3/uL (1.8-7.7); NEUT % 88 % (31-73); PLATELET COUNT 188 x10^3/uL (140-400); RED BLOOD COUNT 3.73 x10^6/uL (3.50-5.40); RED CELL DISTRIBUTION WIDTH 16.1 % (11.5-14.5); WHITE BLOOD COUNT 10.4 x10^3/uL (4.0-11.0)
[2021-08-31 06:28] LABS: CALCIUM 8.2 mg/dL (8.5-10.1); CREATININE 0.6 mg/dL (0.6-1.0); GFR 101.3; MAGNESIUM 2.1 mg/dL (1.8-2.4)
[2021-08-31] MEDS ORDERED: IV NORMAL SALINE 500ML BAG 500 ML IV PRN (08:45)
[2021-08-31] MEDS ORDERED: ATROPINE 0.5 MG/5 ML DISP.SYRINGE. IV PRN (08:45)
--- NOTE | 2021-08-31 08:45 | PDOC ---
[facility] [facility] PROGRESS NOTE Date of Service DOS: DATE: 08/31/21 TIME: 08:44 Chief Complaint Chief Complaint Resolving severe anion gap metabolic acidosis (Likely culprit is the Jardiance which can rarely cause severe acidosis) Respiratory failure requiring mechanical intubation ventilation DANIEL Hypernatremia Hypotension Severe sepsis Anemia Diabetes Elevated D-dimer History of Present Illness History of Present Illness 08/31/2021 Patient seen and examined in the ICU She remains on the vent AC/20/400/40 percent with 5 of PEEP Sedated with propofol Has IV Zosyn hanging Discussed with RN Patient failed her weaning trial yesterday due to tachypnea Chart reviewed 08/30/2021 Patient seen and examined in the ICU She remains on the vent AC/20/400/40 percent with 5 of PEEP Art line showing pressure of 167/91 Has IV Zosyn hanging OG feed running at 35 cc an hour Sedated with propofol Discussed with pharmacy Discussed with RN Chart reviewed 08/29/2021 Patient seen and examined in the ICU She is still on mechanical ventilation AC/20/400/50 5% with 6 of PEEP Sedated with fentanyl and Versed and propofol Has IV Levophed hanging Also on IV doxycycline currently Discussed with RN Chart reviewed Vitals/I&O Vitals/I&O: Vital Signs Date Time Temp Pulse Resp B/P (MAP) Pulse Ox O2 Delivery O2 Flow Rate FiO2 08/31/21 08:19 124 33 149/76 95 Ventilator 08/31/21 07:00 98.3 98.3 I & O 08/30/21 08/30/21 08/31/21 15:00 23:00 07:00 Intake Total 440 ml 1240 ml 999 ml Output Total 650 ml 700 ml Balance 440 ml 590 ml 299 ml Physical Exam Physical Exam: GENERAL: Intubated /sedated HEENT: ETT, OGT tube in place. . Anicteric. NECK: Supple. LUNGS: Decreased breath sound. HEART: S1, S2. No murmurs. ABDOMEN: Soft, nondistended, bowel sounds present GENITOURINARY: Jack in place. EXTREMITIES: No pitting edema. DERMATOLOGIC: Warm, dry. No generalized rash. CENTRAL NERVOUS SYSTEM: Intubated and sedated. PSYCHIATRIC: Unable to assess. LINES: Right IJ otherwise no complications.. Art line clean. PIV clean. General: Other (Sedated on the vent) Heart: Regular rate Abdomen: Normal bowel sounds Extremities: No clubbing Skin: No rashes Labs Labs: Laboratory Tests Test 08/30/21 13:20 08/30/21 17:27 08/30/21 23:53 08/31/21 05:40 Glucose (Fingerstick) 264 mg/dL (70-99) 160 mg/dL (70-99) 189 mg/dL (70-99) 179 mg/dL (70-99) White Blood Count 10.4 x10^3/uL (4.0-11.0) Red Blood Count 3.73 x10^6/uL (3.50-5.40) Hemoglobin 10.8 g/dL (12.0-15.5) Hematocrit 32.0 % (36.0-47.0) Mean Corpuscular Volume 86 fL (79-100) Mean Corpuscular Hemoglobin 29 pg (25-35) Mean Corpuscular Hemoglobin Concent 34 g/dL (31-37) Red Cell Distribution Width 16.1 % (11.5-14.5) Platelet Count 188 x10^3/uL (140-400) Neutrophils (%) (Auto) 88 % (31-73) Lymphocytes (%) (Auto) 7 % (24-48) Monocytes (%) (Auto) 5 % (0-9) Eosinophils (%) (Auto) 1 % (0-3) Basophils (%) (Auto) 0 % (0-3) Neutrophils # (Auto) 9.1 x10^3/uL (1.8-7.7) Lymphocytes # (Auto) 0.7 x10^3/uL (1.0-4.8) Monocytes # (Auto) 0.5 x10^3/uL (0.0-1.1) Eosinophils # (Auto) 0.1 x10^3/uL (0.0-0.7) Basophils # (Auto) 0.0 x10^3/uL (0.0-0.2) Sodium Level 141 mmol/L (136-145) Potassium Level 4.0 mmol/L (3.5-5.1) Chloride Level 108 mmol/L (98-107) Carbon Dioxide Level 28 mmol/L (21-32) Anion Gap 5 (6-14) Blood Urea Nitrogen 12 mg/dL (7-20) Creatinine 0.6 mg/dL (0.6-1.0) Estimated GFR (Cockcroft-Gault) 101.3 Glucose Level 196 mg/dL (70-99) Calcium Level 8.2 mg/dL (8.5-10.1) Magnesium Level 2.1 mg/dL (1.8-2.4) Assessment and Plan Assessmemt and Plan Resolving severe anion gap metabolic acidosis (Likely culprit is the Jardiance which can rarely cause severe acidosis) Respiratory failure requiring mechanical intubation ventilation DANIEL Hypernatremia Hypotension Severe sepsis Anemia Diabetes Elevated D-dimer Plan ICU monitoring Hope to wean off vent soon Trend labs IV Zosyn IV doxy Continue OG feeds Accu-Cheks IV Pepcid for GI prophylaxis Continue as needed sedation DVT prophylaxis Full code Appreciate subspecialist input (Ashlie nephrology and ID are following) Prognosis improving CC time 33-minute Comment Review of Relevant I have reviewed the following items marcela (where applicable) has been applied. Medications: Current Medications Medications (Trade) Dose Ordered Sig/Silvia Route PRN Reason Start Time Stop Time Status Last Admin Dose Admin Potassium Chloride/Water 100 ml @ 100 mls/hr Q1H IV 08/30/21 15:00 08/30/21 18:59 DC 08/30/21 19:29 Justifications for Admission Other Justification LATOYA SEPULVEDA III DO Aug 31, 2021 08:45
[2021-08-31] MEDS: DEXMEDETOMIDINE 400 MCG in IV NORMAL SALINE 100ML 96 ML IV PRN ×2 (08:47→18:51)
[2021-08-31 08:49] LABS: BASE EXCESS ABG 4 mmol/L (-3-3); HCO3 ABG 27 mmol/L (21-28); PCO2 ABG 33 mmHg (35-46); PO2 ABG 57 mmHg (65-108); SAT O2 ABG 93 % (92-99)
[2021-08-31 08:52] LABS: FIO2 ABG 40
--- NOTE | 2021-08-31 08:55 | PDOC ---
Infectious Disease Note Subjective: Subjective Patient intubated/sedated Discussed with RN Vital Signs: Vital Signs Vital Signs Date Time Temp Pulse Resp B/P (MAP) Pulse Ox O2 Delivery O2 Flow Rate FiO2 08/31/21 08:47 129 35 146/77 95 Ventilator 08/31/21 07:00 98.3 98.3 Physical Exam: PHYSICAL EXAM GENERAL: Intubated /sedated HEENT: ETT, OGT tube in place. . Anicteric. NECK: Supple. LUNGS: Decreased breath sound. HEART: S1, S2. No murmurs. ABDOMEN: Soft, nondistended, bowel sounds present GENITOURINARY: Jack in place. EXTREMITIES: No pitting edema. DERMATOLOGIC: Warm, dry. No generalized rash. CENTRAL NERVOUS SYSTEM: Intubated and sedated. PSYCHIATRIC: Unable to assess. LINES: Right IJ otherwise no complications.. Art line clean. PIV clean. Medications: Inpatient Meds: Medications reviewed. Labs: Lab Laboratory Tests Test 08/30/21 13:20 08/30/21 17:27 08/30/21 23:53 08/31/21 05:40 Glucose (Fingerstick) 264 mg/dL (70-99) 160 mg/dL (70-99) 189 mg/dL (70-99) 179 mg/dL (70-99) White Blood Count 10.4 x10^3/uL (4.0-11.0) Red Blood Count 3.73 x10^6/uL (3.50-5.40) Hemoglobin 10.8 g/dL (12.0-15.5) Hematocrit 32.0 % (36.0-47.0) Mean Corpuscular Volume 86 fL (79-100) Mean Corpuscular Hemoglobin 29 pg (25-35) Mean Corpuscular Hemoglobin Concent 34 g/dL (31-37) Red Cell Distribution Width 16.1 % (11.5-14.5) Platelet Count 188 x10^3/uL (140-400) Neutrophils (%) (Auto) 88 % (31-73) Lymphocytes (%) (Auto) 7 % (24-48) Monocytes (%) (Auto) 5 % (0-9) Eosinophils (%) (Auto) 1 % (0-3) Basophils (%) (Auto) 0 % (0-3) Neutrophils # (Auto) 9.1 x10^3/uL (1.8-7.7) Lymphocytes # (Auto) 0.7 x10^3/uL (1.0-4.8) Monocytes # (Auto) 0.5 x10^3/uL (0.0-1.1) Eosinophils # (Auto) 0.1 x10^3/uL (0.0-0.7) Basophils # (Auto) 0.0 x10^3/uL (0.0-0.2) Sodium Level 141 mmol/L (136-145) Potassium Level 4.0 mmol/L (3.5-5.1) Chloride Level 108 mmol/L (98-107) Carbon Dioxide Level 28 mmol/L (21-32) Anion Gap 5 (6-14) Blood Urea Nitrogen 12 mg/dL (7-20) Creatinine 0.6 mg/dL (0.6-1.0) Estimated GFR (Cockcroft-Gault) 101.3 Glucose Level 196 mg/dL (70-99) Calcium Level 8.2 mg/dL (8.5-10.1) Magnesium Level 2.1 mg/dL (1.8-2.4) Test 08/31/21 08:45 O2 Saturation 93 % (92-99) Arterial Blood pH 7.53 (7.35-7.45) Arterial Blood pCO2 at Patient Temp 33 mmHg (35-46) Arterial Blood pO2 at Patient Temp 57 mmHg (65-108) Arterial Blood HCO3 27 mmol/L (21-28) Arterial Blood Base Excess 4 mmol/L (-3-3) FiO2 40 Objective: Assessment: 1. Severe sepsis. Hypotension on pressors 2. Acute hypoxic respiratory failure, status post intubation. 3. Severe metabolic acidosis. Resolved. Hypernatremia improved 4. 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 Leukocytosis, on steroids. Improving 7. Elevated D-dimer.CTA negative for PE Plan: Plan of Care 1. Continue Zosyn and doxycycline. 2. Follow-up labs and cultures 3. continue supportive care 4. COVID management per primary, on Steroids 5. Monitor labs and cultures. Discussed with nursing staff. FIDEL HILL MD Aug 31, 2021 08:55
[2021-08-31] MEDS: DOXYCYCLINE HYCLATE 100 MG in IV DEXTROSE 5% 100ML 100 ML IV SCH ×2 (09:30→20:57)
[2021-08-31] MEDS ORDERED: MULTIVITAMINS,THERAPEUTIC 5 ML ORAL LIQUID. PEG SCH (09:30)
[2021-08-31] MEDS: FAMOTIDINE 20 MG/2 ML VIAL IVP SCH ×2 (09:35→20:56)
[2021-08-31] MEDS: ENOXAPARIN 40 MG/0.4 ML SYRINGE. SQ SCH (09:35)
[2021-08-31] MEDS: MULTIVITAMINS,THERAPEUTIC 5 ML ORAL LIQUID. PEG SCH (09:37)
--- NOTE | 2021-08-31 09:42 | PDOC ---
PULMONARY PROGRESS NOTES DATE: 08/31/21 TIME: 09:41 Subjective Currently on 45% FiO2 5 of PEEP No overnight events Vitals Vital Signs Date Time Temp Pulse Resp B/P (MAP) Pulse Ox O2 Delivery O2 Flow Rate FiO2 08/31/21 09:34 130 08/31/21 09:04 35 145/78 97 Ventilator 08/31/21 07:00 98.3 98.3 Comments Visual exam done due to COVID-19 viral pneumonia. No paradoxical breathing. Currently sedated. No skin rash no leg edema Labs Laboratory Tests Test 08/29/21 12:39 08/30/21 00:06 08/30/21 05:37 08/30/21 06:05 Glucose (Fingerstick) 278 mg/dL (70-99) 271 mg/dL (70-99) 228 mg/dL (70-99) White Blood Count 10.2 x10^3/uL (4.0-11.0) Red Blood Count 3.78 x10^6/uL (3.50-5.40) Hemoglobin 10.7 g/dL (12.0-15.5) Hematocrit 32.2 % (36.0-47.0) Mean Corpuscular Volume 85 fL (79-100) Mean Corpuscular Hemoglobin 28 pg (25-35) Mean Corpuscular Hemoglobin Concent 33 g/dL (31-37) Red Cell Distribution Width 15.7 % (11.5-14.5) Platelet Count 161 x10^3/uL (140-400) Neutrophils (%) (Auto) 92 % (31-73) Lymphocytes (%) (Auto) 5 % (24-48) Monocytes (%) (Auto) 3 % (0-9) Eosinophils (%) (Auto) 0 % (0-3) Basophils (%) (Auto) 0 % (0-3) Neutrophils # (Auto) 9.4 x10^3/uL (1.8-7.7) Lymphocytes # (Auto) 0.5 x10^3/uL (1.0-4.8) Monocytes # (Auto) 0.3 x10^3/uL (0.0-1.1) Eosinophils # (Auto) 0.0 x10^3/uL (0.0-0.7) Basophils # (Auto) 0.0 x10^3/uL (0.0-0.2) Sodium Level 146 mmol/L (136-145) Potassium Level 3.0 mmol/L (3.5-5.1) Chloride Level 110 mmol/L (98-107) Carbon Dioxide Level 27 mmol/L (21-32) Anion Gap 9 (6-14) Blood Urea Nitrogen 15 mg/dL (7-20) Creatinine 0.7 mg/dL (0.6-1.0) Estimated GFR (Cockcroft-Gault) 84.8 Glucose Level 253 mg/dL (70-99) Calcium Level 8.0 mg/dL (8.5-10.1) Magnesium Level 2.2 mg/dL (1.8-2.4) Test 08/30/21 08:40 08/30/21 13:20 08/30/21 17:27 08/30/21 23:53 O2 Saturation 96 % (92-99) Arterial Blood pH 7.51 (7.35-7.45) Arterial Blood pCO2 at Patient Temp 35 mmHg (35-46) Arterial Blood pO2 at Patient Temp 73 mmHg (65-108) Arterial Blood HCO3 27 mmol/L (21-28) Arterial Blood Base Excess 4 mmol/L (-3-3) FiO2 40 Glucose (Fingerstick) 264 mg/dL (70-99) 160 mg/dL (70-99) 189 mg/dL (70-99) Test 08/31/21 05:40 08/31/21 08:45 White Blood Count 10.4 x10^3/uL (4.0-11.0) Red Blood Count 3.73 x10^6/uL (3.50-5.40) Hemoglobin 10.8 g/dL (12.0-15.5) Hematocrit 32.0 % (36.0-47.0) Mean Corpuscular Volume 86 fL (79-100) Mean Corpuscular Hemoglobin 29 pg (25-35) Mean Corpuscular Hemoglobin Concent 34 g/dL (31-37) Red Cell Distribution Width 16.1 % (11.5-14.5) Platelet Count 188 x10^3/uL (140-400) Neutrophils (%) (Auto) 88 % (31-73) Lymphocytes (%) (Auto) 7 % (24-48) Monocytes (%) (Auto) 5 % (0-9) Eosinophils (%) (Auto) 1 % (0-3) Basophils (%) (Auto) 0 % (0-3) Neutrophils # (Auto) 9.1 x10^3/uL (1.8-7.7) Lymphocytes # (Auto) 0.7 x10^3/uL (1.0-4.8) Monocytes # (Auto) 0.5 x10^3/uL (0.0-1.1) Eosinophils # (Auto) 0.1 x10^3/uL (0.0-0.7) Basophils # (Auto) 0.0 x10^3/uL (0.0-0.2) Sodium Level 141 mmol/L (136-145) Potassium Level 4.0 mmol/L (3.5-5.1) Chloride Level 108 mmol/L (98-107) Carbon Dioxide Level 28 mmol/L (21-32) Anion Gap 5 (6-14) Blood Urea Nitrogen 12 mg/dL (7-20) Creatinine 0.6 mg/dL (0.6-1.0) Estimated GFR (Cockcroft-Gault) 101.3 Glucose Level 196 mg/dL (70-99) Glucose (Fingerstick) 179 mg/dL (70-99) Calcium Level 8.2 mg/dL (8.5-10.1) Magnesium Level 2.1 mg/dL (1.8-2.4) O2 Saturation 93 % (92-99) Arterial Blood pH 7.53 (7.35-7.45) Arterial Blood pCO2 at Patient Temp 33 mmHg (35-46) Arterial Blood pO2 at Patient Temp 57 mmHg (65-108) Arterial Blood HCO3 27 mmol/L (21-28) Arterial Blood Base Excess 4 mmol/L (-3-3) FiO2 40 Laboratory Tests Test 08/30/21 13:20 08/30/21 17:27 08/30/21 23:53 08/31/21 05:40 Glucose (Fingerstick) 264 mg/dL (70-99) 160 mg/dL (70-99) 189 mg/dL (70-99) 179 mg/dL (70-99) White Blood Count 10.4 x10^3/uL (4.0-11.0) Red Blood Count 3.73 x10^6/uL (3.50-5.40) Hemoglobin 10.8 g/dL (12.0-15.5) Hematocrit 32.0 % (36.0-47.0) Mean Corpuscular Volume 86 fL (79-100) Mean Corpuscular Hemoglobin 29 pg (25-35) Mean Corpuscular Hemoglobin Concent 34 g/dL (31-37) Red Cell Distribution Width 16.1 % (11.5-14.5) Platelet Count 188 x10^3/uL (140-400) Neutrophils (%) (Auto) 88 % (31-73) Lymphocytes (%) (Auto) 7 % (24-48) Monocytes (%) (Auto) 5 % (0-9) Eosinophils (%) (Auto) 1 % (0-3) Basophils (%) (Auto) 0 % (0-3) Neutrophils # (Auto) 9.1 x10^3/uL (1.8-7.7) Lymphocytes # (Auto) 0.7 x10^3/uL (1.0-4.8) Monocytes # (Auto) 0.5 x10^3/uL (0.0-1.1) Eosinophils # (Auto) 0.1 x10^3/uL (0.0-0.7) Basophils # (Auto) 0.0 x10^3/uL (0.0-0.2) Sodium Level 141 mmol/L (136-145) Potassium Level 4.0 mmol/L (3.5-5.1) Chloride Level 108 mmol/L (98-107) Carbon Dioxide Level 28 mmol/L (21-32) Anion Gap 5 (6-14) Blood Urea Nitrogen 12 mg/dL (7-20) Creatinine 0.6 mg/dL (0.6-1.0) Estimated GFR (Cockcroft-Gault) 101.3 Glucose Level 196 mg/dL (70-99) Calcium Level 8.2 mg/dL (8.5-10.1) Magnesium Level 2.1 mg/dL (1.8-2.4) Test 08/31/21 08:45 O2 Saturation 93 % (92-99) Arterial Blood pH 7.53 (7.35-7.45) Arterial Blood pCO2 at Patient Temp 33 mmHg (35-46) Arterial Blood pO2 at Patient Temp 57 mmHg (65-108) Arterial Blood HCO3 27 mmol/L (21-28) Arterial Blood Base Excess 4 mmol/L (-3-3) FiO2 40 Medications Active Scripts Medications Dose Route/Sig Max Daily Dose Days Date Category Aspirin 81 Mg Tab.chew 1 Tab PO DAILY 08/26/21 Reported Codeine-Guaifen 10-100 mg/5 ml (Guaifenesin/Codeine Phosphate) 120 Ml Liquid 5 Ml PO PRN Q6HRS PRN MDD 20 Milliliter(s) 6 08/26/21 Reported Ibuprofen 600 Mg Tablet 600 Mg PO PRN Q8HRS PRN 08/26/21 Reported Ondansetron Odt (Ondansetron) 4 Mg Tab.rapdis 1 Tab PO PRN Q6-8HRS 08/26/21 Reported Benzonatate 100 Mg Capsule 1 Cap PO TID 08/26/21 Reported Carvedilol (Carvedilol) 6.25 Mg Tablet 6.25 Mg PO BIDWMEALS 08/26/21 Reported Levothyroxine Sodium 150 Mcg Tablet 1 Tab PO DAILY 08/26/21 Reported Levofloxacin 750 Mg Tablet 1 Tab PO DAILY PRN 08/26/21 Reported Jardiance (Empagliflozin) 10 Mg Tablet 10 Mg PO DAILY 08/26/21 Reported Lisinopril 20 Mg Tablet 1 Tab PO BID 08/26/21 Reported Metformin Hcl 1,000 Mg Tablet 1,000 Mg PO BIDWMEALS 08/26/21 Reported Crestor (Rosuvastatin Calcium) 40 Mg Tablet 20 Mg PO HS 08/26/21 Reported Ventolin Hfa Inhaler (Albuterol Sulfate) 18 Gm Hfa.aer.ad 2 Puff INH Q4HRS 08/26/21 Reported Brilinta (Ticagrelor) 90 Mg Tablet 90 Mg PO BID 08/26/21 Reported Comments Chest x-ray reviewed 08/29/2021. Bilateral mild interstitial infiltrates. No significant change. Chest x-ray reviewed 08/27/2021 Bilateral diffuse interstitial infiltrates related to COVID-19 viral pneumonia Impression . 1. Acute respiratory failure multifactorial 2. Severe metabolic acidosis. Likely etiology is Jardiance induced metabolic acidosis versus diabetic ketoacidosis. Her lactic acid was 1.6. She clinically has a component of septic shock as well. 3. Abnormal chest x-ray and CT angiogram with diffuse bilateral patchy infiltrates consistent with viral pneumonia. 4. COVID-19 positive. 5. Severe protein-calorie malnutrition. 6. Marked leukocytosis. 7. Septic shock. 8. Hyponatremia, now improved 9. Severe metabolic acidosis likely secondary to Jardiance induced, with a bicarb of 4 present on admission, now significantly improved 10. Negative CT for pulmonary embolism Plan . Updated 08/31 Discussed with RN and RT Continue current support Possible trial titrate sedation down updated 08/30 Labs reviewed white count normal ABG noted Bicarb 27 Discussed with RN, did not do well I trial this morning will reattempt trial later today or tomorrow morning DVT prophylaxis Discussed with RN and RT Empiric antibiotics Steroids Negative CT chest for PE JEROME AGUILERA MD Aug 31, 2021 09:41
--- NOTE | 2021-08-31 15:05 | NUR ---
SS following up with discharge planning. SS reviewed pt chart and discussed with pt RN. Pt is currently on the vent at 45%. COVID19 positive. Pt on IV Zosyn and IV Doxycycline. Pt on Propofol and Precedex. Not ready. SS will continue to follow for discharge planning.
--- NOTE | 2021-08-31 18:22 | NUR ---
Precedex started on patient this AM. This RN turned propofol off for a sedation vacation. Patient's respirations climbed into the 30's and BP increased. This RN restart propofol for the remainder of the day. Will try for a CPAP trial tomorrow.
[2021-08-31] MEDS: INSULIN GLARGINE SYRINGE. SQ SCH (20:57)
[2021-09-01] VITALS (29 sets, daily range): BP systolic 98–157; BP diastolic 52–90
[2021-09-01] MEDS: PIPERACILLIN/TAZOBACTAM 4.5 GM in IV DEXTROSE 5% 100ML 100 ML IV SCH ×2 (00:31→05:48)
[2021-09-01] MEDS: INSULIN LISPRO 300 UNITS/3 ML VIAL. SQ SCH ×8 (00:33→18:34)
[2021-09-01] MEDS: LEVOTHYROXINE 150 MCG TABLET PO SCH (05:48)
[2021-09-01 06:24] LABS: BASO % 0 % (0-3); EOS # 0.1 x10^3/uL (0.0-0.7); EOS % 2 % (0-3); HEMATOCRIT 29.1 % (36.0-47.0); HEMOGLOBIN 9.7 g/dL (12.0-15.5); LYMPH # 0.8 x10^3/uL (1.0-4.8); LYMPH % 10 % (24-48); MEAN CORPUSCULAR HEMOGLOBIN 29 pg (25-35); MEAN CORPUSCULAR HGB CONC 33 g/dL (31-37); MEAN CORPUSCULAR VOLUME 86 fL (79-100); MONO # 0.4 x10^3/uL (0.0-1.1); MONO % 6 % (0-9); NEUT # 6.1 x10^3/uL (1.8-7.7); NEUT % 82 % (31-73); PLATELET COUNT 190 x10^3/uL (140-400); RED BLOOD COUNT 3.39 x10^6/uL (3.50-5.40); RED CELL DISTRIBUTION WIDTH 15.7 % (11.5-14.5); WHITE BLOOD COUNT 7.4 x10^3/uL (4.0-11.0)
[2021-09-01 06:34] LABS: CALCIUM 8.3 mg/dL (8.5-10.1); CREATININE 0.7 mg/dL (0.6-1.0); GFR 84.8; MAGNESIUM 2.2 mg/dL (1.8-2.4); POTASSIUM 3.5 mmol/L (3.5-5.1)
[2021-09-01 08:50] LABS: BASE EXCESS ABG 4 mmol/L (-3-3); HCO3 ABG 27 mmol/L (21-28); PCO2 ABG 37 mmHg (35-46); PO2 ABG 58 mmHg (65-108); SAT O2 ABG 91 % (92-99)
--- NOTE | 2021-09-01 08:50 | PDOC ---
Infectious Disease Note Subjective: Subjective Patient intubated/sedated Awaiting weaning trial Discussed with RN Vital Signs: Vital Signs Vital Signs Date Time Temp Pulse Resp B/P (MAP) Pulse Ox O2 Delivery O2 Flow Rate FiO2 09/01/21 08:32 93 Ventilator 09/01/21 08:21 97.9 95 28 129/66 97.9 Physical Exam: PHYSICAL EXAM GENERAL: Intubated in [facility] HEENT: ETT, OGT tube in place. . Anicteric. LUNGS: Decreased breath sound. HEART: S1, S2. No murmurs. ABDOMEN: Soft, nondistended, bowel sounds present GENITOURINARY: Jack in place. EXTREMITIES: No pitting edema. DERMATOLOGIC: Warm, dry. No generalized rash. CENTRAL NERVOUS SYSTEM: Intubated and sedated. PSYCHIATRIC: Unable to assess. LINES: Right IJ otherwise no complications.. Art line clean. PIV clean. Medications: Inpatient Meds: Medications reviewed. Labs: Lab Laboratory Tests Test 08/31/21 16:42 09/01/21 00:28 09/01/21 05:45 09/01/21 06:00 Glucose (Fingerstick) 174 mg/dL (70-99) 197 mg/dL (70-99) 166 mg/dL (70-99) White Blood Count 7.4 x10^3/uL (4.0-11.0) Red Blood Count 3.39 x10^6/uL (3.50-5.40) Hemoglobin 9.7 g/dL (12.0-15.5) Hematocrit 29.1 % (36.0-47.0) Mean Corpuscular Volume 86 fL (79-100) Mean Corpuscular Hemoglobin 29 pg (25-35) Mean Corpuscular Hemoglobin Concent 33 g/dL (31-37) Red Cell Distribution Width 15.7 % (11.5-14.5) Platelet Count 190 x10^3/uL (140-400) Neutrophils (%) (Auto) 82 % (31-73) Lymphocytes (%) (Auto) 10 % (24-48) Monocytes (%) (Auto) 6 % (0-9) Eosinophils (%) (Auto) 2 % (0-3) Basophils (%) (Auto) 0 % (0-3) Neutrophils # (Auto) 6.1 x10^3/uL (1.8-7.7) Lymphocytes # (Auto) 0.8 x10^3/uL (1.0-4.8) Monocytes # (Auto) 0.4 x10^3/uL (0.0-1.1) Eosinophils # (Auto) 0.1 x10^3/uL (0.0-0.7) Basophils # (Auto) 0.0 x10^3/uL (0.0-0.2) Sodium Level 146 mmol/L (136-145) Potassium Level 3.5 mmol/L (3.5-5.1) Chloride Level 111 mmol/L (98-107) Carbon Dioxide Level 29 mmol/L (21-32) Anion Gap 6 (6-14) Blood Urea Nitrogen 16 mg/dL (7-20) Creatinine 0.7 mg/dL (0.6-1.0) Estimated GFR (Cockcroft-Gault) 84.8 Glucose Level 196 mg/dL (70-99) Calcium Level 8.3 mg/dL (8.5-10.1) Magnesium Level 2.2 mg/dL (1.8-2.4) Objective: Assessment: 1. Severe sepsis. Hypotension on pressors 2. Acute hypoxic respiratory failure, status post intubation. 3. Severe metabolic acidosis. Resolved. Hypernatremia improved 4. Diabetes mellitus,likely DKA 5. COVID-19 positive [employer] for 10-15 days,been at numerous EDs with abnormal chest x-ray and CTA, 6. Leukocytosis, on steroids. Improving 7. Elevated D-dimer.CTA negative for PE Plan: Plan of Care DC doxycycline Continue Zosyn for now Awaiting weaning trial COVID management per primary Continue supportive care Discussed with nursing staff. FIDEL HILL MD Sep 01, 2021 08:50
[2021-09-01 08:54] LABS: FIO2 ABG 45
[2021-09-01] MEDS: PROPOFOL 100 ML IV PRN ×2 (10:14→19:22)
[2021-09-01] MEDS: DEXMEDETOMIDINE 400 MCG in IV NORMAL SALINE 100ML 96 ML IV PRN ×2 (10:15→19:41)
[2021-09-01] MEDS: ENOXAPARIN 40 MG/0.4 ML SYRINGE. SQ SCH (10:19)
[2021-09-01] MEDS: MULTIVITAMINS,THERAPEUTIC 5 ML ORAL LIQUID. PEG SCH (10:19)
[2021-09-01] MEDS: FAMOTIDINE 20 MG/2 ML VIAL IVP SCH ×2 (10:19→20:46)
[2021-09-01] MEDS: DOXYCYCLINE HYCLATE 100 MG in IV DEXTROSE 5% 100ML 100 ML IV SCH (10:20)
--- NOTE | 2021-09-01 11:08 | PDOC ---
[employer] PROGRESS NOTE Date of Service DOS: DATE: 09/01/21 TIME: 11:06 Chief Complaint Chief Complaint Resolving severe anion gap metabolic acidosis (Likely culprit is the Jardiance which can rarely cause severe acidosis) Respiratory failure requiring mechanical intubation ventilation DANIEL Hypernatremia Hypotension Severe sepsis Anemia Diabetes Elevated D-dimer History of Present Illness History of Present Illness 09/01/2021 Patient seen and examined in the ICU Remains on the vent AC/20/400/50/5 of PEEP Discussed with RN Chart reviewed We are doing weaning trials this morning Slightly sedated with Precedex Has mitts on for her safety Jack to bedside drainage NG is clamped Has a rectal bag 08/31/2021 Patient seen and examined in the ICU She remains on the vent AC/20/400/40 percent with 5 of PEEP Sedated with propofol Has IV Zosyn hanging Discussed with RN Patient failed her weaning trial yesterday due to tachypnea Chart reviewed 08/30/2021 Patient seen and examined in the ICU She remains on the vent AC/20/400/40 percent with 5 of PEEP Art line showing pressure of 167/91 Has IV Zosyn hanging OG feed running at 35 cc an hour Sedated with propofol Discussed with pharmacy Discussed with RN Chart reviewed 08/29/2021 Patient seen and examined in the ICU She is still on mechanical ventilation AC/20/400/50 5% with 6 of PEEP Sedated with fentanyl and Versed and propofol Has IV Levophed hanging Also on IV doxycycline currently Discussed with RN Chart reviewed Vitals/I&O Vitals/I&O: Vital Signs Date Time Temp Pulse Resp B/P (MAP) Pulse Ox O2 Delivery O2 Flow Rate FiO2 09/01/21 10:33 98 Ventilator 09/01/21 10:03 71 29 126/85 09/01/21 08:21 97.9 97.9 I & O 08/31/21 08/31/21 09/01/21 15:00 23:00 07:00 Intake Total 400 ml 1764 ml 783 ml Output Total 800 ml 550 ml 625 ml Balance -400 ml 1214 ml 158 ml Physical Exam Physical Exam: GENERAL: Intubated in [facility] HEENT: ETT, OGT tube in place. . Anicteric. LUNGS: Decreased breath sound. HEART: S1, S2. No murmurs. ABDOMEN: Soft, nondistended, bowel sounds present GENITOURINARY: Jack in place. EXTREMITIES: No pitting edema. DERMATOLOGIC: Warm, dry. No generalized rash. CENTRAL NERVOUS SYSTEM: Intubated and sedated. PSYCHIATRIC: Unable to assess. LINES: Right IJ otherwise no complications.. Art line clean. PIV clean. General: Other (Sedated on the vent) Heart: Regular rate Abdomen: Normal bowel sounds Extremities: No clubbing Skin: No rashes Labs Labs: Laboratory Tests Test 08/31/21 16:42 09/01/21 00:28 09/01/21 05:45 09/01/21 06:00 Glucose (Fingerstick) 174 mg/dL (70-99) 197 mg/dL (70-99) 166 mg/dL (70-99) White Blood Count 7.4 x10^3/uL (4.0-11.0) Red Blood Count 3.39 x10^6/uL (3.50-5.40) Hemoglobin 9.7 g/dL (12.0-15.5) Hematocrit 29.1 % (36.0-47.0) Mean Corpuscular Volume 86 fL (79-100) Mean Corpuscular Hemoglobin 29 pg (25-35) Mean Corpuscular Hemoglobin Concent 33 g/dL (31-37) Red Cell Distribution Width 15.7 % (11.5-14.5) Platelet Count 190 x10^3/uL (140-400) Neutrophils (%) (Auto) 82 % (31-73) Lymphocytes (%) (Auto) 10 % (24-48) Monocytes (%) (Auto) 6 % (0-9) Eosinophils (%) (Auto) 2 % (0-3) Basophils (%) (Auto) 0 % (0-3) Neutrophils # (Auto) 6.1 x10^3/uL (1.8-7.7) Lymphocytes # (Auto) 0.8 x10^3/uL (1.0-4.8) Monocytes # (Auto) 0.4 x10^3/uL (0.0-1.1) Eosinophils # (Auto) 0.1 x10^3/uL (0.0-0.7) Basophils # (Auto) 0.0 x10^3/uL (0.0-0.2) Sodium Level 146 mmol/L (136-145) Potassium Level 3.5 mmol/L (3.5-5.1) Chloride Level 111 mmol/L (98-107) Carbon Dioxide Level 29 mmol/L (21-32) Anion Gap 6 (6-14) Blood Urea Nitrogen 16 mg/dL (7-20) Creatinine 0.7 mg/dL (0.6-1.0) Estimated GFR (Cockcroft-Gault) 84.8 Glucose Level 196 mg/dL (70-99) Calcium Level 8.3 mg/dL (8.5-10.1) Magnesium Level 2.2 mg/dL (1.8-2.4) Test 09/01/21 08:35 O2 Saturation 91 % (92-99) Arterial Blood pH 7.48 (7.35-7.45) Arterial Blood pCO2 at Patient Temp 37 mmHg (35-46) Arterial Blood pO2 at Patient Temp 58 mmHg (65-108) Arterial Blood HCO3 27 mmol/L (21-28) Arterial Blood Base Excess 4 mmol/L (-3-3) FiO2 45 Assessment and Plan Assessmemt and Plan Resolving severe anion gap metabolic acidosis (Likely culprit is the Jardiance which can rarely cause severe acidosis) Respiratory failure requiring mechanical intubation ventilation DANIEL Hypernatremia Hypotension Severe sepsis Anemia Diabetes Elevated D-dimer Plan ICU monitoring Hope to wean off vent soon Trend labs IV Zosyn IV doxy Continue OG feeds Accu-Cheks IV Pepcid for GI prophylaxis Continue as needed sedation DVT prophylaxis Full code Appreciate subspecialist input (Ashlie nephrology and ID are following) Prognosis improving CC time 32-minute Comment Review of Relevant I have reviewed the following items marcela (where applicable) has been applied. Justifications for Admission Other Justification LATOYA SEPULVEDA III DO Sep 01, 2021 11:08
[2021-09-01] MEDS: PIPERACILLIN/TAZOBACTAM 3.375 GM in IV NORMAL SALINE 50ML 50 ML IV SCH ×2 (11:31→18:34)
--- NOTE | 2021-09-01 11:34 | PDOC ---
PULMONARY PROGRESS NOTES DATE: 09/01/21 TIME: 11:29 Subjective Currently sedated with prop, precedex Currently on 50% FiO2 9 of PEEP No overnight events Vitals Vital Signs Date Time Temp Pulse Resp B/P (MAP) Pulse Ox O2 Delivery O2 Flow Rate FiO2 09/01/21 11:04 75 26 98/54 98 Ventilator 09/01/21 08:21 97.9 97.9 Comments Visual exam done due to COVID-19 viral pneumonia. No paradoxical breathing. Currently sedated. No skin rash no leg edema Labs Laboratory Tests Test 08/30/21 13:20 08/30/21 17:27 08/30/21 23:53 08/31/21 05:40 Glucose (Fingerstick) 264 mg/dL (70-99) 160 mg/dL (70-99) 189 mg/dL (70-99) 179 mg/dL (70-99) White Blood Count 10.4 x10^3/uL (4.0-11.0) Red Blood Count 3.73 x10^6/uL (3.50-5.40) Hemoglobin 10.8 g/dL (12.0-15.5) Hematocrit 32.0 % (36.0-47.0) Mean Corpuscular Volume 86 fL (79-100) Mean Corpuscular Hemoglobin 29 pg (25-35) Mean Corpuscular Hemoglobin Concent 34 g/dL (31-37) Red Cell Distribution Width 16.1 % (11.5-14.5) Platelet Count 188 x10^3/uL (140-400) Neutrophils (%) (Auto) 88 % (31-73) Lymphocytes (%) (Auto) 7 % (24-48) Monocytes (%) (Auto) 5 % (0-9) Eosinophils (%) (Auto) 1 % (0-3) Basophils (%) (Auto) 0 % (0-3) Neutrophils # (Auto) 9.1 x10^3/uL (1.8-7.7) Lymphocytes # (Auto) 0.7 x10^3/uL (1.0-4.8) Monocytes # (Auto) 0.5 x10^3/uL (0.0-1.1) Eosinophils # (Auto) 0.1 x10^3/uL (0.0-0.7) Basophils # (Auto) 0.0 x10^3/uL (0.0-0.2) Sodium Level 141 mmol/L (136-145) Potassium Level 4.0 mmol/L (3.5-5.1) Chloride Level 108 mmol/L (98-107) Carbon Dioxide Level 28 mmol/L (21-32) Anion Gap 5 (6-14) Blood Urea Nitrogen 12 mg/dL (7-20) Creatinine 0.6 mg/dL (0.6-1.0) Estimated GFR (Cockcroft-Gault) 101.3 Glucose Level 196 mg/dL (70-99) Calcium Level 8.2 mg/dL (8.5-10.1) Magnesium Level 2.1 mg/dL (1.8-2.4) Test 08/31/21 08:45 08/31/21 16:42 09/01/21 00:28 09/01/21 05:45 O2 Saturation 93 % (92-99) Arterial Blood pH 7.53 (7.35-7.45) Arterial Blood pCO2 at Patient Temp 33 mmHg (35-46) Arterial Blood pO2 at Patient Temp 57 mmHg (65-108) Arterial Blood HCO3 27 mmol/L (21-28) Arterial Blood Base Excess 4 mmol/L (-3-3) FiO2 40 Glucose (Fingerstick) 174 mg/dL (70-99) 197 mg/dL (70-99) 166 mg/dL (70-99) Test 09/01/21 06:00 09/01/21 08:35 White Blood Count 7.4 x10^3/uL (4.0-11.0) Red Blood Count 3.39 x10^6/uL (3.50-5.40) Hemoglobin 9.7 g/dL (12.0-15.5) Hematocrit 29.1 % (36.0-47.0) Mean Corpuscular Volume 86 fL (79-100) Mean Corpuscular Hemoglobin 29 pg (25-35) Mean Corpuscular Hemoglobin Concent 33 g/dL (31-37) Red Cell Distribution Width 15.7 % (11.5-14.5) Platelet Count 190 x10^3/uL (140-400) Neutrophils (%) (Auto) 82 % (31-73) Lymphocytes (%) (Auto) 10 % (24-48) Monocytes (%) (Auto) 6 % (0-9) Eosinophils (%) (Auto) 2 % (0-3) Basophils (%) (Auto) 0 % (0-3) Neutrophils # (Auto) 6.1 x10^3/uL (1.8-7.7) Lymphocytes # (Auto) 0.8 x10^3/uL (1.0-4.8) Monocytes # (Auto) 0.4 x10^3/uL (0.0-1.1) Eosinophils # (Auto) 0.1 x10^3/uL (0.0-0.7) Basophils # (Auto) 0.0 x10^3/uL (0.0-0.2) Sodium Level 146 mmol/L (136-145) Potassium Level 3.5 mmol/L (3.5-5.1) Chloride Level 111 mmol/L (98-107) Carbon Dioxide Level 29 mmol/L (21-32) Anion Gap 6 (6-14) Blood Urea Nitrogen 16 mg/dL (7-20) Creatinine 0.7 mg/dL (0.6-1.0) Estimated GFR (Cockcroft-Gault) 84.8 Glucose Level 196 mg/dL (70-99) Calcium Level 8.3 mg/dL (8.5-10.1) Magnesium Level 2.2 mg/dL (1.8-2.4) O2 Saturation 91 % (92-99) Arterial Blood pH 7.48 (7.35-7.45) Arterial Blood pCO2 at Patient Temp 37 mmHg (35-46) Arterial Blood pO2 at Patient Temp 58 mmHg (65-108) Arterial Blood HCO3 27 mmol/L (21-28) Arterial Blood Base Excess 4 mmol/L (-3-3) FiO2 45 Laboratory Tests Test 08/31/21 16:42 09/01/21 00:28 09/01/21 05:45 09/01/21 06:00 Glucose (Fingerstick) 174 mg/dL (70-99) 197 mg/dL (70-99) 166 mg/dL (70-99) White Blood Count 7.4 x10^3/uL (4.0-11.0) Red Blood Count 3.39 x10^6/uL (3.50-5.40) Hemoglobin 9.7 g/dL (12.0-15.5) Hematocrit 29.1 % (36.0-47.0) Mean Corpuscular Volume 86 fL (79-100) Mean Corpuscular Hemoglobin 29 pg (25-35) Mean Corpuscular Hemoglobin Concent 33 g/dL (31-37) Red Cell Distribution Width 15.7 % (11.5-14.5) Platelet Count 190 x10^3/uL (140-400) Neutrophils (%) (Auto) 82 % (31-73) Lymphocytes (%) (Auto) 10 % (24-48) Monocytes (%) (Auto) 6 % (0-9) Eosinophils (%) (Auto) 2 % (0-3) Basophils (%) (Auto) 0 % (0-3) Neutrophils # (Auto) 6.1 x10^3/uL (1.8-7.7) Lymphocytes # (Auto) 0.8 x10^3/uL (1.0-4.8) Monocytes # (Auto) 0.4 x10^3/uL (0.0-1.1) Eosinophils # (Auto) 0.1 x10^3/uL (0.0-0.7) Basophils # (Auto) 0.0 x10^3/uL (0.0-0.2) Sodium Level 146 mmol/L (136-145) Potassium Level 3.5 mmol/L (3.5-5.1) Chloride Level 111 mmol/L (98-107) Carbon Dioxide Level 29 mmol/L (21-32) Anion Gap 6 (6-14) Blood Urea Nitrogen 16 mg/dL (7-20) Creatinine 0.7 mg/dL (0.6-1.0) Estimated GFR (Cockcroft-Gault) 84.8 Glucose Level 196 mg/dL (70-99) Calcium Level 8.3 mg/dL (8.5-10.1) Magnesium Level 2.2 mg/dL (1.8-2.4) Test 09/01/21 08:35 O2 Saturation 91 % (92-99) Arterial Blood pH 7.48 (7.35-7.45) Arterial Blood pCO2 at Patient Temp 37 mmHg (35-46) Arterial Blood pO2 at Patient Temp 58 mmHg (65-108) Arterial Blood HCO3 27 mmol/L (21-28) Arterial Blood Base Excess 4 mmol/L (-3-3) FiO2 45 Medications Active Scripts Medications Dose Route/Sig Max Daily Dose Days Date Category Aspirin 81 Mg Tab.chew 1 Tab PO DAILY 08/26/21 Reported Codeine-Guaifen 10-100 mg/5 ml (Guaifenesin/Codeine Phosphate) 120 Ml Liquid 5 Ml PO PRN Q6HRS PRN MDD 20 Milliliter(s) 6 08/26/21 Reported Ibuprofen 600 Mg Tablet 600 Mg PO PRN Q8HRS PRN 08/26/21 Reported Ondansetron Odt (Ondansetron) 4 Mg Tab.rapdis 1 Tab PO PRN Q6-8HRS 08/26/21 Reported Benzonatate 100 Mg Capsule 1 Cap PO TID 08/26/21 Reported Carvedilol (Carvedilol) 6.25 Mg Tablet 6.25 Mg PO BIDWMEALS 08/26/21 Reported Levothyroxine Sodium 150 Mcg Tablet 1 Tab PO DAILY 08/26/21 Reported Levofloxacin 750 Mg Tablet 1 Tab PO DAILY PRN 08/26/21 Reported Jardiance (Empagliflozin) 10 Mg Tablet 10 Mg PO DAILY 08/26/21 Reported Lisinopril 20 Mg Tablet 1 Tab PO BID 08/26/21 Reported Metformin Hcl 1,000 Mg Tablet 1,000 Mg PO BIDWMEALS 08/26/21 Reported Crestor (Rosuvastatin Calcium) 40 Mg Tablet 20 Mg PO HS 08/26/21 Reported Ventolin Hfa Inhaler (Albuterol Sulfate) 18 Gm Hfa.aer.ad 2 Puff INH Q4HRS 08/26/21 Reported Brilinta (Ticagrelor) 90 Mg Tablet 90 Mg PO BID 08/26/21 Reported Comments Chest x-ray reviewed 08/29/2021. Bilateral mild interstitial infiltrates. No significant change. Chest x-ray reviewed 08/27/2021 Bilateral diffuse interstitial infiltrates related to COVID-19 viral pneumonia Impression . 1. Acute respiratory failure multifactorial 2. Severe metabolic acidosis. Likely etiology is Jardiance induced metabolic acidosis versus diabetic ketoacidosis. Her lactic acid was 1.6. She clinically has a component of septic shock as well. 3. Abnormal chest x-ray and CT angiogram with diffuse bilateral patchy infiltrates consistent with viral pneumonia. 4. COVID-19 positive. 5. Severe protein-calorie malnutrition. 6. Marked leukocytosis.Improved 7. Septic shock. 8. Hyponatremia, now improved 9. Severe metabolic acidosis likely secondary to Jardiance induced, with a bicarb of 4 present on admission, now significantly improved 10. Negative CT for pulmonary embolism Plan . Updated 09/01 Continue current support ABG noted pH 7.48, CO2 37, PaO2 58, Bicarb 27 Increased FiO2 to 50% this morning Spoke to, patient did not do well on trial We will attempt spontaneous trial in the a.m. Updated 08/31 Discussed with RN and RT Continue current support Possible trial titrate sedation down JEROME AGUILERA MD Sep 01, 2021 11:34
[2021-09-01 12:30] LABS: % ATYL 1 % (0-0); % EOS 2 % (0-5); % LYMPHS 9 % (24-48); % MONOS 6 % (0-10); % MYELOS 2 % (0-0); % SEGS 80 % (35-66); PLT ESTIMATE ADEQUATE (ADEQUATE)
--- NOTE | 2021-09-01 16:21 | NUR ---
SS following up with discharge planning. SS reviewed pt chart and discussed with pt RN. Pt is currently on the vent at 50%. COVID19 positive. Pt on IV Zosyn. Pt on Propofol and Precedex. Not ready. SS will continue to follow for discharge planning.
[2021-09-01] MEDS: INSULIN GLARGINE SYRINGE. SQ SCH (20:47)
[2021-09-02] VITALS (30 sets, daily range): BP systolic 97–158; BP diastolic 54–112
[2021-09-02] MEDS: INSULIN LISPRO 300 UNITS/3 ML VIAL. SQ SCH ×10 (00:01→23:59)
[2021-09-02] MEDS: PIPERACILLIN/TAZOBACTAM 3.375 GM in IV NORMAL SALINE 50ML 50 ML IV SCH ×5 (00:01→23:30)
[2021-09-02] MEDS: DEXMEDETOMIDINE 400 MCG in IV NORMAL SALINE 100ML 96 ML IV PRN ×2 (03:12→09:26)
[2021-09-02 04:46] LABS: BASO % 1 % (0-3); EOS # 0.1 x10^3/uL (0.0-0.7); EOS % 1 % (0-3); HEMATOCRIT 28.3 % (36.0-47.0); HEMOGLOBIN 9.2 g/dL (12.0-15.5); LYMPH # 0.7 x10^3/uL (1.0-4.8); LYMPH % 11 % (24-48); MEAN CORPUSCULAR HEMOGLOBIN 28 pg (25-35); MEAN CORPUSCULAR HGB CONC 33 g/dL (31-37); MEAN CORPUSCULAR VOLUME 87 fL (79-100); MONO # 0.4 x10^3/uL (0.0-1.1); MONO % 6 % (0-9); NEUT # 5.4 x10^3/uL (1.8-7.7); NEUT % 82 % (31-73); PLATELET COUNT 216 x10^3/uL (140-400); RED BLOOD COUNT 3.26 x10^6/uL (3.50-5.40); RED CELL DISTRIBUTION WIDTH 15.7 % (11.5-14.5); WHITE BLOOD COUNT 6.7 x10^3/uL (4.0-11.0)
[2021-09-02 05:09] LABS: CALCIUM 8.3 mg/dL (8.5-10.1); CREATININE 0.6 mg/dL (0.6-1.0); GFR 101.3
[2021-09-02] MEDS: LEVOTHYROXINE 150 MCG TABLET PO SCH (05:47)
[2021-09-02] MEDS: PROPOFOL 100 ML IV PRN (05:47)
--- NOTE | 2021-09-02 05:51 | PDOC ---
Infectious Disease Note Subjective: Subjective Patient intubated Awaiting weaning trial Vital Signs: Vital Signs Vital Signs Date Time Temp Pulse Resp B/P (MAP) Pulse Ox O2 Delivery O2 Flow Rate FiO2 09/02/21 04:30 65 26 121/68 99 Ventilator 09/02/21 04:00 97.2 97.2 Physical Exam: PHYSICAL EXAM GENERAL: Intubated in [facility] HEENT: ETT, OGT tube in place. . Anicteric. LUNGS: Decreased breath sound. HEART: S1, S2. No murmurs. ABDOMEN: Soft, nondistended, bowel sounds present GENITOURINARY: Jack in place. EXTREMITIES: No pitting edema. DERMATOLOGIC: Warm, dry. No generalized rash. CENTRAL NERVOUS SYSTEM: Intubated and sedated. PSYCHIATRIC: Unable to assess. LINES: Right IJ otherwise no complications.. Art line clean. PIV clean. Medications: Inpatient Meds: Medications reviewed. Labs: Lab Laboratory Tests Test 09/01/21 06:00 09/01/21 08:35 09/01/21 11:26 09/01/21 18:30 White Blood Count 7.4 x10^3/uL (4.0-11.0) Red Blood Count 3.39 x10^6/uL (3.50-5.40) Hemoglobin 9.7 g/dL (12.0-15.5) Hematocrit 29.1 % (36.0-47.0) Mean Corpuscular Volume 86 fL (79-100) Mean Corpuscular Hemoglobin 29 pg (25-35) Mean Corpuscular Hemoglobin Concent 33 g/dL (31-37) Red Cell Distribution Width 15.7 % (11.5-14.5) Platelet Count 190 x10^3/uL (140-400) Neutrophils (%) (Auto) 82 % (31-73) Lymphocytes (%) (Auto) 10 % (24-48) Monocytes (%) (Auto) 6 % (0-9) Eosinophils (%) (Auto) 2 % (0-3) Basophils (%) (Auto) 0 % (0-3) Neutrophils # (Auto) 6.1 x10^3/uL (1.8-7.7) Lymphocytes # (Auto) 0.8 x10^3/uL (1.0-4.8) Monocytes # (Auto) 0.4 x10^3/uL (0.0-1.1) Eosinophils # (Auto) 0.1 x10^3/uL (0.0-0.7) Basophils # (Auto) 0.0 x10^3/uL (0.0-0.2) Segmented Neutrophils % 80 % (35-66) Lymphocytes % 9 % (24-48) Atypical Lymphocytes % (Manual) 1 % (0-0) Monocytes % 6 % (0-10) Eosinophils % 2 % (0-5) Myelocytes % 2 % (0-0) Platelet Estimate Adequate (ADEQUATE) Large Platelets Occ Sodium Level 146 mmol/L (136-145) Potassium Level 3.5 mmol/L (3.5-5.1) Chloride Level 111 mmol/L (98-107) Carbon Dioxide Level 29 mmol/L (21-32) Anion Gap 6 (6-14) Blood Urea Nitrogen 16 mg/dL (7-20) Creatinine 0.7 mg/dL (0.6-1.0) Estimated GFR (Cockcroft-Gault) 84.8 Glucose Level 196 mg/dL (70-99) Calcium Level 8.3 mg/dL (8.5-10.1) Magnesium Level 2.2 mg/dL (1.8-2.4) O2 Saturation 91 % (92-99) Arterial Blood pH 7.48 (7.35-7.45) Arterial Blood pCO2 at Patient Temp 37 mmHg (35-46) Arterial Blood pO2 at Patient Temp 58 mmHg (65-108) Arterial Blood HCO3 27 mmol/L (21-28) Arterial Blood Base Excess 4 mmol/L (-3-3) FiO2 45 Glucose (Fingerstick) 174 mg/dL (70-99) 165 mg/dL (70-99) Test 09/01/21 23:29 09/02/21 04:37 Glucose (Fingerstick) 165 mg/dL (70-99) White Blood Count 6.7 x10^3/uL (4.0-11.0) Red Blood Count 3.26 x10^6/uL (3.50-5.40) Hemoglobin 9.2 g/dL (12.0-15.5) Hematocrit 28.3 % (36.0-47.0) Mean Corpuscular Volume 87 fL (79-100) Mean Corpuscular Hemoglobin 28 pg (25-35) Mean Corpuscular Hemoglobin Concent 33 g/dL (31-37) Red Cell Distribution Width 15.7 % (11.5-14.5) Platelet Count 216 x10^3/uL (140-400) Neutrophils (%) (Auto) 82 % (31-73) Lymphocytes (%) (Auto) 11 % (24-48) Monocytes (%) (Auto) 6 % (0-9) Eosinophils (%) (Auto) 1 % (0-3) Basophils (%) (Auto) 1 % (0-3) Neutrophils # (Auto) 5.4 x10^3/uL (1.8-7.7) Lymphocytes # (Auto) 0.7 x10^3/uL (1.0-4.8) Monocytes # (Auto) 0.4 x10^3/uL (0.0-1.1) Eosinophils # (Auto) 0.1 x10^3/uL (0.0-0.7) Basophils # (Auto) 0.0 x10^3/uL (0.0-0.2) Sodium Level 146 mmol/L (136-145) Potassium Level 3.0 mmol/L (3.5-5.1) Chloride Level 111 mmol/L (98-107) Carbon Dioxide Level 30 mmol/L (21-32) Anion Gap 5 (6-14) Blood Urea Nitrogen 15 mg/dL (7-20) Creatinine 0.6 mg/dL (0.6-1.0) Estimated GFR (Cockcroft-Gault) 101.3 Glucose Level 97 mg/dL (70-99) Calcium Level 8.3 mg/dL (8.5-10.1) Magnesium Level 2.3 mg/dL (1.8-2.4) Objective: Assessment: 1. Severe sepsis. Hypotension on pressors 2. Acute hypoxic respiratory failure, status post intubation. 3. Severe metabolic acidosis. Resolved. Hypernatremia improved 4. Diabetes mellitus,likely DKA 5. COVID-19 positive OFFICE MESSENGER for 10-15 days,been at numerous EDs with abnormal chest x-ray and CTA, 6. Leukocytosis, on steroids. Improving 7. Elevated D-dimer.CTA negative for PE Plan: Plan of Care Cont Zosyn ,wean off soon Awaiting weaning trial COVID management per primary Continue supportive care Discussed with nursing staff. FIDEL HILL MD Sep 02, 2021 05:51
[2021-09-02] MEDS: POTASSIUM CHLORIDE 20MEQ 100 ML IV SCH ×4 (08:31→11:23)
[2021-09-02] MEDS: MULTIVITAMINS,THERAPEUTIC 5 ML ORAL LIQUID. PEG SCH (09:24)
[2021-09-02] MEDS: FAMOTIDINE 20 MG/2 ML VIAL IVP SCH ×2 (09:24→20:48)
[2021-09-02] MEDS: ENOXAPARIN 40 MG/0.4 ML SYRINGE. SQ SCH (09:25)
--- NOTE | 2021-09-02 09:26 | PDOC ---
PULMONARY PROGRESS NOTES DATE: 09/02/21 TIME: 09:26 Subjective Patient seen doing spontaneous trial, in no respiratory distress She shook her head yes to removing the ET tube from the oral cavity Vitals Vital Signs Date Time Temp Pulse Resp B/P (MAP) Pulse Ox O2 Delivery O2 Flow Rate FiO2 09/02/21 09:09 75 33 138/112 99 Ventilator 09/02/21 07:22 98.1 98.1 Comments Visual exam done due to COVID-19 viral pneumonia. No paradoxical breathing. Currently sedated. No skin rash no leg edema Labs Laboratory Tests Test 08/31/21 16:42 09/01/21 00:28 09/01/21 05:45 09/01/21 06:00 Glucose (Fingerstick) 174 mg/dL (70-99) 197 mg/dL (70-99) 166 mg/dL (70-99) White Blood Count 7.4 x10^3/uL (4.0-11.0) Red Blood Count 3.39 x10^6/uL (3.50-5.40) Hemoglobin 9.7 g/dL (12.0-15.5) Hematocrit 29.1 % (36.0-47.0) Mean Corpuscular Volume 86 fL (79-100) Mean Corpuscular Hemoglobin 29 pg (25-35) Mean Corpuscular Hemoglobin Concent 33 g/dL (31-37) Red Cell Distribution Width 15.7 % (11.5-14.5) Platelet Count 190 x10^3/uL (140-400) Neutrophils (%) (Auto) 82 % (31-73) Lymphocytes (%) (Auto) 10 % (24-48) Monocytes (%) (Auto) 6 % (0-9) Eosinophils (%) (Auto) 2 % (0-3) Basophils (%) (Auto) 0 % (0-3) Neutrophils # (Auto) 6.1 x10^3/uL (1.8-7.7) Lymphocytes # (Auto) 0.8 x10^3/uL (1.0-4.8) Monocytes # (Auto) 0.4 x10^3/uL (0.0-1.1) Eosinophils # (Auto) 0.1 x10^3/uL (0.0-0.7) Basophils # (Auto) 0.0 x10^3/uL (0.0-0.2) Segmented Neutrophils % 80 % (35-66) Lymphocytes % 9 % (24-48) Atypical Lymphocytes % (Manual) 1 % (0-0) Monocytes % 6 % (0-10) Eosinophils % 2 % (0-5) Myelocytes % 2 % (0-0) Platelet Estimate Adequate (ADEQUATE) Large Platelets Occ Sodium Level 146 mmol/L (136-145) Potassium Level 3.5 mmol/L (3.5-5.1) Chloride Level 111 mmol/L (98-107) Carbon Dioxide Level 29 mmol/L (21-32) Anion Gap 6 (6-14) Blood Urea Nitrogen 16 mg/dL (7-20) Creatinine 0.7 mg/dL (0.6-1.0) Estimated GFR (Cockcroft-Gault) 84.8 Glucose Level 196 mg/dL (70-99) Calcium Level 8.3 mg/dL (8.5-10.1) Magnesium Level 2.2 mg/dL (1.8-2.4) Test 09/01/21 08:35 09/01/21 11:26 09/01/21 18:30 09/01/21 23:29 O2 Saturation 91 % (92-99) Arterial Blood pH 7.48 (7.35-7.45) Arterial Blood pCO2 at Patient Temp 37 mmHg (35-46) Arterial Blood pO2 at Patient Temp 58 mmHg (65-108) Arterial Blood HCO3 27 mmol/L (21-28) Arterial Blood Base Excess 4 mmol/L (-3-3) FiO2 45 Glucose (Fingerstick) 174 mg/dL (70-99) 165 mg/dL (70-99) 165 mg/dL (70-99) Test 09/02/21 04:37 White Blood Count 6.7 x10^3/uL (4.0-11.0) Red Blood Count 3.26 x10^6/uL (3.50-5.40) Hemoglobin 9.2 g/dL (12.0-15.5) Hematocrit 28.3 % (36.0-47.0) Mean Corpuscular Volume 87 fL (79-100) Mean Corpuscular Hemoglobin 28 pg (25-35) Mean Corpuscular Hemoglobin Concent 33 g/dL (31-37) Red Cell Distribution Width 15.7 % (11.5-14.5) Platelet Count 216 x10^3/uL (140-400) Neutrophils (%) (Auto) 82 % (31-73) Lymphocytes (%) (Auto) 11 % (24-48) Monocytes (%) (Auto) 6 % (0-9) Eosinophils (%) (Auto) 1 % (0-3) Basophils (%) (Auto) 1 % (0-3) Neutrophils # (Auto) 5.4 x10^3/uL (1.8-7.7) Lymphocytes # (Auto) 0.7 x10^3/uL (1.0-4.8) Monocytes # (Auto) 0.4 x10^3/uL (0.0-1.1) Eosinophils # (Auto) 0.1 x10^3/uL (0.0-0.7) Basophils # (Auto) 0.0 x10^3/uL (0.0-0.2) Sodium Level 146 mmol/L (136-145) Potassium Level 3.0 mmol/L (3.5-5.1) Chloride Level 111 mmol/L (98-107) Carbon Dioxide Level 30 mmol/L (21-32) Anion Gap 5 (6-14) Blood Urea Nitrogen 15 mg/dL (7-20) Creatinine 0.6 mg/dL (0.6-1.0) Estimated GFR (Cockcroft-Gault) 101.3 Glucose Level 97 mg/dL (70-99) Calcium Level 8.3 mg/dL (8.5-10.1) Magnesium Level 2.3 mg/dL (1.8-2.4) Laboratory Tests Test 09/01/21 11:26 09/01/21 18:30 09/01/21 23:29 09/02/21 04:37 Glucose (Fingerstick) 174 mg/dL (70-99) 165 mg/dL (70-99) 165 mg/dL (70-99) White Blood Count 6.7 x10^3/uL (4.0-11.0) Red Blood Count 3.26 x10^6/uL (3.50-5.40) Hemoglobin 9.2 g/dL (12.0-15.5) Hematocrit 28.3 % (36.0-47.0) Mean Corpuscular Volume 87 fL (79-100) Mean Corpuscular Hemoglobin 28 pg (25-35) Mean Corpuscular Hemoglobin Concent 33 g/dL (31-37) Red Cell Distribution Width 15.7 % (11.5-14.5) Platelet Count 216 x10^3/uL (140-400) Neutrophils (%) (Auto) 82 % (31-73) Lymphocytes (%) (Auto) 11 % (24-48) Monocytes (%) (Auto) 6 % (0-9) Eosinophils (%) (Auto) 1 % (0-3) Basophils (%) (Auto) 1 % (0-3) Neutrophils # (Auto) 5.4 x10^3/uL (1.8-7.7) Lymphocytes # (Auto) 0.7 x10^3/uL (1.0-4.8) Monocytes # (Auto) 0.4 x10^3/uL (0.0-1.1) Eosinophils # (Auto) 0.1 x10^3/uL (0.0-0.7) Basophils # (Auto) 0.0 x10^3/uL (0.0-0.2) Sodium Level 146 mmol/L (136-145) Potassium Level 3.0 mmol/L (3.5-5.1) Chloride Level 111 mmol/L (98-107) Carbon Dioxide Level 30 mmol/L (21-32) Anion Gap 5 (6-14) Blood Urea Nitrogen 15 mg/dL (7-20) Creatinine 0.6 mg/dL (0.6-1.0) Estimated GFR (Cockcroft-Gault) 101.3 Glucose Level 97 mg/dL (70-99) Calcium Level 8.3 mg/dL (8.5-10.1) Magnesium Level 2.3 mg/dL (1.8-2.4) Medications Active Scripts Medications Dose Route/Sig Max Daily Dose Days Date Category Aspirin 81 Mg Tab.chew 1 Tab PO DAILY 08/26/21 Reported Codeine-Guaifen 10-100 mg/5 ml (Guaifenesin/Codeine Phosphate) 120 Ml Liquid 5 Ml PO PRN Q6HRS PRN MDD 20 Milliliter(s) 6 08/26/21 Reported Ibuprofen 600 Mg Tablet 600 Mg PO PRN Q8HRS PRN 1/21/22 Reported Ondansetron Odt (Ondansetron) 4 Mg Tab.rapdis 1 Tab PO PRN Q6-8HRS 08/26/21 Reported Benzonatate 100 Mg Capsule 1 Cap PO TID 08/26/21 Reported Carvedilol (Carvedilol) 6.25 Mg Tablet 6.25 Mg PO BIDWMEALS 08/26/21 Reported Levothyroxine Sodium 150 Mcg Tablet 1 Tab PO DAILY 08/26/21 Reported Levofloxacin 750 Mg Tablet 1 Tab PO DAILY PRN 08/26/21 Reported Jardiance (Empagliflozin) 10 Mg Tablet 10 Mg PO DAILY 08/26/21 Reported Lisinopril 20 Mg Tablet 1 Tab PO BID 08/26/21 Reported Metformin Hcl 1,000 Mg Tablet 1,000 Mg PO BIDWMEALS 08/26/21 Reported Crestor (Rosuvastatin Calcium) 40 Mg Tablet 20 Mg PO HS 08/26/21 Reported Ventolin Hfa Inhaler (Albuterol Sulfate) 18 Gm Hfa.aer.ad 2 Puff INH Q4HRS 08/26/21 Reported Brilinta (Ticagrelor) 90 Mg Tablet 90 Mg PO BID 08/26/21 Reported Comments Chest x-ray reviewed 08/29/2021. Bilateral mild interstitial infiltrates. No significant change. Chest x-ray reviewed 08/27/2021 Bilateral diffuse interstitial infiltrates related to COVID-19 viral pneumonia Impression . 1. Acute respiratory failure multifactorial 2. Severe metabolic acidosis. Likely etiology is Jardiance induced metabolic acidosis versus diabetic ketoacidosis. Her lactic acid was 1.6. She clinically has a component of septic shock as well. 3. Abnormal chest x-ray and CT angiogram with diffuse bilateral patchy infiltrates consistent with viral pneumonia. 4. COVID-19 positive. 5. Severe protein-calorie malnutrition. 6. Marked leukocytosis.Improved 7. Septic shock. 8. Hyponatremia, now improved 9. Severe metabolic acidosis likely secondary to Jardiance induced, with a bicarb of 4 present on admission, now significantly improved 10. Negative CT for pulmonary embolism Plan . Updated 09/02 Discussed with RN and RT will proceed with extubation ABG noted Continue current support Continue Zosyn Continue DVT prophylaxis GI prophylaxis Monitor blood sugars JEROME AGUILERA MD Sep 02, 2021 09:26
[2021-09-02 10:46] LABS: BASE EXCESS ABG 3 mmol/L (-3-3); HCO3 ABG 27 mmol/L (21-28); PCO2 ABG 37 mmHg (35-46); PO2 ABG 79 mmHg (65-108); SAT O2 ABG 96 % (92-99)
[2021-09-02 10:55] LABS: FIO2 ABG 40
--- NOTE | 2021-09-02 11:14 | PDOC ---
[facility] [facility] PROGRESS NOTE Date of Service DOS: DATE: 09/02/21 TIME: 11:12 Chief Complaint Chief Complaint Resolving severe anion gap metabolic acidosis (Likely culprit is the Jardiance which can rarely cause severe acidosis) Respiratory failure requiring mechanical intubation ventilation DANIEL Hypernatremia Hypotension Severe sepsis Anemia Diabetes Elevated D-dimer History of Present Illness History of Present Illness 09/02/2021 Patient seen and examined in the ICU She remains on the vent failed her weaning trial yesterday We are trying another weaning trial this morning Current vent settings as follows AC/20/400/50 percent with 5 of PEEP Has mitts on for safety Jack to bedside drainage Has a rectal bag OG feed at 35 cc an hour Discussed with RN Chart reviewed 09/01/2021 Patient seen and examined in the ICU Remains on the vent AC/20/400/50/5 of PEEP Discussed with RN Chart reviewed We are doing weaning trials this morning Slightly sedated with Precedex Has mitts on for her safety Jack to bedside drainage NG is clamped Has a rectal bag 08/31/2021 Patient seen and examined in the ICU She remains on the vent AC/20/400/40 percent with 5 of PEEP Sedated with propofol Has IV Zosyn hanging Discussed with RN Patient failed her weaning trial yesterday due to tachypnea Chart reviewed 08/30/2021 Patient seen and examined in the ICU She remains on the vent AC/20/400/40 percent with 5 of PEEP Art line showing pressure of 167/91 Has IV Zosyn hanging OG feed running at 35 cc an hour Sedated with propofol Discussed with pharmacy Discussed with RN Chart reviewed 08/29/2021 Patient seen and examined in the ICU She is still on mechanical ventilation AC/20/400/50 5% with 6 of PEEP Sedated with fentanyl and Versed and propofol Has IV Levophed hanging Also on IV doxycycline currently Discussed with RN Chart reviewed Vitals/I&O Vitals/I&O: Vital Signs Date Time Temp Pulse Resp B/P (MAP) Pulse Ox O2 Delivery O2 Flow Rate FiO2 09/02/21 10:03 86 38 145/82 97 Ventilator 09/02/21 07:22 98.1 98.1 I & O 09/01/21 09/01/21 09/02/21 15:00 23:00 07:00 Intake Total 250 ml 1008 ml 798.9 ml Output Total 500 ml 600 ml 200 ml Balance -250 ml 408 ml 598.9 ml Physical Exam Physical Exam: GENERAL: Intubated in mittens HEENT: ETT, OGT tube in place. . Anicteric. LUNGS: Decreased breath sound. HEART: S1, S2. No murmurs. ABDOMEN: Soft, nondistended, bowel sounds present GENITOURINARY: Jack in place. EXTREMITIES: No pitting edema. DERMATOLOGIC: Warm, dry. No generalized rash. CENTRAL NERVOUS SYSTEM: Intubated and sedated. PSYCHIATRIC: Unable to assess. LINES: Right IJ otherwise no complications.. Art line clean. PIV clean. General: Other (Sedated on the vent) Heart: Regular rate Abdomen: Normal bowel sounds Extremities: No clubbing Skin: No rashes Labs Labs: Laboratory Tests Test 09/01/21 11:26 09/01/21 18:30 09/01/21 23:29 09/02/21 04:37 Glucose (Fingerstick) 174 mg/dL (70-99) 165 mg/dL (70-99) 165 mg/dL (70-99) White Blood Count 6.7 x10^3/uL (4.0-11.0) Red Blood Count 3.26 x10^6/uL (3.50-5.40) Hemoglobin 9.2 g/dL (12.0-15.5) Hematocrit 28.3 % (36.0-47.0) Mean Corpuscular Volume 87 fL (79-100) Mean Corpuscular Hemoglobin 28 pg (25-35) Mean Corpuscular Hemoglobin Concent 33 g/dL (31-37) Red Cell Distribution Width 15.7 % (11.5-14.5) Platelet Count 216 x10^3/uL (140-400) Neutrophils (%) (Auto) 82 % (31-73) Lymphocytes (%) (Auto) 11 % (24-48) Monocytes (%) (Auto) 6 % (0-9) Eosinophils (%) (Auto) 1 % (0-3) Basophils (%) (Auto) 1 % (0-3) Neutrophils # (Auto) 5.4 x10^3/uL (1.8-7.7) Lymphocytes # (Auto) 0.7 x10^3/uL (1.0-4.8) Monocytes # (Auto) 0.4 x10^3/uL (0.0-1.1) Eosinophils # (Auto) 0.1 x10^3/uL (0.0-0.7) Basophils # (Auto) 0.0 x10^3/uL (0.0-0.2) Sodium Level 146 mmol/L (136-145) Potassium Level 3.0 mmol/L (3.5-5.1) Chloride Level 111 mmol/L (98-107) Carbon Dioxide Level 30 mmol/L (21-32) Anion Gap 5 (6-14) Blood Urea Nitrogen 15 mg/dL (7-20) Creatinine 0.6 mg/dL (0.6-1.0) Estimated GFR (Cockcroft-Gault) 101.3 Glucose Level 97 mg/dL (70-99) Calcium Level 8.3 mg/dL (8.5-10.1) Magnesium Level 2.3 mg/dL (1.8-2.4) Test 09/02/21 10:35 O2 Saturation 96 % (92-99) Arterial Blood pH 7.48 (7.35-7.45) Arterial Blood pCO2 at Patient Temp 37 mmHg (35-46) Arterial Blood pO2 at Patient Temp 79 mmHg (65-108) Arterial Blood HCO3 27 mmol/L (21-28) Arterial Blood Base Excess 3 mmol/L (-3-3) FiO2 40 Assessment and Plan Assessmemt and Plan Resolving severe anion gap metabolic acidosis (Likely culprit is the Jardiance which can rarely cause severe acidosis) Respiratory failure requiring mechanical intubation ventilation DANIEL Hypernatremia Hypotension Severe sepsis Anemia Diabetes Elevated D-dimer Plan ICU monitoring Hope to wean off vent soon, doing another weaning trial this morning Trend labs IV Zosyn IV doxy Continue OG feeds Accu-Cheks IV Pepcid for GI prophylaxis Continue as needed sedation DVT prophylaxis Full code Appreciate subspecialist input (Ashlie nephrology and ID are following) Prognosis improving daily CC time 31-minute Comment Review of Relevant I have reviewed the following items marcela (where applicable) has been applied. Medications: Current Medications Medications (Trade) Dose Ordered Sig/Silvia Route PRN Reason Start Time Stop Time Status Last Admin Dose Admin Piperacillin Sod/ Tazobactam Sod 3.375 gm/Sodium Chloride 50 ml @ 100 mls/hr Q6HRS IV 09/01/21 12:00 09/02/21 05:49 Potassium Chloride/Water 100 ml @ 100 mls/hr Q1H IV 09/02/21 08:00 09/02/21 11:59 09/02/21 10:09 Justifications for Admission Other Justification LATOYA SEPULVEDA III DO Sep 02, 2021 11:14
--- NOTE | 2021-09-02 15:13 | NUR ---
SS following up with discharge planning. SS reviewed pt chart and discussed with pt RN. Pt extubated today and is currently requiring oxygen at five liters nasal canula. COVID19 positive. Pt on IV Zosyn. NPO. PT/OT/ST being ordered for tomorrow. Not ready. SS will continue to follow for discharge planning.
[2021-09-02] MEDS: INSULIN GLARGINE SYRINGE. SQ SCH (20:58)
[2021-09-03] VITALS (23 sets, daily range): BP systolic 128–156; BP diastolic 66–82
[2021-09-03] MEDS: INSULIN LISPRO 300 UNITS/3 ML VIAL. SQ SCH ×4 (06:00→18:05)
[2021-09-03] MEDS: LEVOTHYROXINE 150 MCG TABLET PO SCH (06:00)
[2021-09-03] MEDS: PIPERACILLIN/TAZOBACTAM 3.375 GM in IV NORMAL SALINE 50ML 50 ML IV SCH ×3 (06:10→18:06)
--- NOTE | 2021-09-03 09:20 | PDOC ---
PULMONARY PROGRESS NOTES DATE: 09/03/21 TIME: 09:18 Subjective Patient extubated yesterday, doing well Cough is strong Patient not vaccinated Currently Nasal cannula oxygen Vitals Vital Signs Date Time Temp Pulse Resp B/P (MAP) Pulse Ox O2 Delivery O2 Flow Rate FiO2 09/03/21 06:00 79 22 140/76 (97) 93 Nasal Cannula 5.0 09/03/21 03:00 99.1 99.1 General: Alert Lungs: Clear Cardiovascular: S1, S2 Abdomen: Soft Neuro Exam: Alert Extremities: No Edema Skin: Warm Labs Laboratory Tests Test 09/01/21 11:26 09/01/21 18:30 09/01/21 23:29 09/02/21 04:37 Glucose (Fingerstick) 174 mg/dL (70-99) 165 mg/dL (70-99) 165 mg/dL (70-99) White Blood Count 6.7 x10^3/uL (4.0-11.0) Red Blood Count 3.26 x10^6/uL (3.50-5.40) Hemoglobin 9.2 g/dL (12.0-15.5) Hematocrit 28.3 % (36.0-47.0) Mean Corpuscular Volume 87 fL (79-100) Mean Corpuscular Hemoglobin 28 pg (25-35) Mean Corpuscular Hemoglobin Concent 33 g/dL (31-37) Red Cell Distribution Width 15.7 % (11.5-14.5) Platelet Count 216 x10^3/uL (140-400) Neutrophils (%) (Auto) 82 % (31-73) Lymphocytes (%) (Auto) 11 % (24-48) Monocytes (%) (Auto) 6 % (0-9) Eosinophils (%) (Auto) 1 % (0-3) Basophils (%) (Auto) 1 % (0-3) Neutrophils # (Auto) 5.4 x10^3/uL (1.8-7.7) Lymphocytes # (Auto) 0.7 x10^3/uL (1.0-4.8) Monocytes # (Auto) 0.4 x10^3/uL (0.0-1.1) Eosinophils # (Auto) 0.1 x10^3/uL (0.0-0.7) Basophils # (Auto) 0.0 x10^3/uL (0.0-0.2) Sodium Level 146 mmol/L (136-145) Potassium Level 3.0 mmol/L (3.5-5.1) Chloride Level 111 mmol/L (98-107) Carbon Dioxide Level 30 mmol/L (21-32) Anion Gap 5 (6-14) Blood Urea Nitrogen 15 mg/dL (7-20) Creatinine 0.6 mg/dL (0.6-1.0) Estimated GFR (Cockcroft-Gault) 101.3 Glucose Level 97 mg/dL (70-99) Calcium Level 8.3 mg/dL (8.5-10.1) Magnesium Level 2.3 mg/dL (1.8-2.4) Test 09/02/21 10:35 09/02/21 11:32 09/02/21 18:15 09/02/21 20:51 O2 Saturation 96 % (92-99) Arterial Blood pH 7.48 (7.35-7.45) Arterial Blood pCO2 at Patient Temp 37 mmHg (35-46) Arterial Blood pO2 at Patient Temp 79 mmHg (65-108) Arterial Blood HCO3 27 mmol/L (21-28) Arterial Blood Base Excess 3 mmol/L (-3-3) FiO2 40 Glucose (Fingerstick) 234 mg/dL (70-99) 109 mg/dL (70-99) 117 mg/dL (70-99) Test 09/02/21 23:54 09/03/21 05:56 Glucose (Fingerstick) 120 mg/dL (70-99) 106 mg/dL (70-99) Laboratory Tests Test 09/02/21 10:35 09/02/21 11:32 09/02/21 18:15 09/02/21 20:51 O2 Saturation 96 % (92-99) Arterial Blood pH 7.48 (7.35-7.45) Arterial Blood pCO2 at Patient Temp 37 mmHg (35-46) Arterial Blood pO2 at Patient Temp 79 mmHg (65-108) Arterial Blood HCO3 27 mmol/L (21-28) Arterial Blood Base Excess 3 mmol/L (-3-3) FiO2 40 Glucose (Fingerstick) 234 mg/dL (70-99) 109 mg/dL (70-99) 117 mg/dL (70-99) Test 09/02/21 23:54 09/03/21 05:56 Glucose (Fingerstick) 120 mg/dL (70-99) 106 mg/dL (70-99) Medications Active Scripts Medications Dose Route/Sig Max Daily Dose Days Date Category Aspirin 81 Mg Tab.chew 1 Tab PO DAILY 08/26/21 Reported Codeine-Guaifen 10-100 mg/5 ml (Guaifenesin/Codeine Phosphate) 120 Ml Liquid 5 Ml PO PRN Q6HRS PRN MDD 20 Milliliter(s) 6 08/26/21 Reported Ibuprofen 600 Mg Tablet 600 Mg PO PRN Q8HRS PRN 08/26/21 Reported Ondansetron Odt (Ondansetron) 4 Mg Tab.rapdis 1 Tab PO PRN Q6-8HRS 08/26/21 Reported Benzonatate 100 Mg Capsule 1 Cap PO TID 08/26/21 Reported Carvedilol (Carvedilol) 6.25 Mg Tablet 6.25 Mg PO BIDWMEALS 08/26/21 Reported Levothyroxine Sodium 150 Mcg Tablet 1 Tab PO DAILY 08/26/21 Reported Levofloxacin 750 Mg Tablet 1 Tab PO DAILY PRN 08/26/21 Reported Jardiance (Empagliflozin) 10 Mg Tablet 10 Mg PO DAILY 08/26/21 Reported Lisinopril 20 Mg Tablet 1 Tab PO BID 08/26/21 Reported Metformin Hcl 1,000 Mg Tablet 1,000 Mg PO BIDWMEALS 08/26/21 Reported Crestor (Rosuvastatin Calcium) 40 Mg Tablet 20 Mg PO HS 08/26/21 Reported Ventolin Hfa Inhaler (Albuterol Sulfate) 18 Gm Hfa.aer.ad 2 Puff INH Q4HRS 08/26/21 Reported Brilinta (Ticagrelor) 90 Mg Tablet 90 Mg PO BID 08/26/21 Reported Comments Chest x-ray reviewed 08/29/2021. Bilateral mild interstitial infiltrates. No significant change. Chest x-ray reviewed 08/27/2021 Bilateral diffuse interstitial infiltrates related to COVID-19 viral pneumonia Impression . 1. Acute respiratory failure multifactorial 2. Severe metabolic acidosis. Likely etiology is Jardiance induced metabolic acidosis versus diabetic ketoacidosis. Her lactic acid was 1.6. She clinically has a component of septic shock as well. 3. Abnormal chest x-ray and CT angiogram with diffuse bilateral patchy infiltrates consistent with viral pneumonia. 4. COVID-19 positive. Not vaccinated 5. Severe protein-calorie malnutrition. 6. Marked leukocytosis.Improved 7. Septic shock. 8. Hyponatremia, now improved 9. Severe metabolic acidosis likely secondary to Jardiance induced, with a bica rb of 4 present on admission, now significantly improved 10. Negative CT for pulmonary embolism Plan . Updated 09/03 Extubated 128 Speech eval Transfer out of the ICU DVT prophylaxis Antibiotics de-escalation per ID Continue DVT prophylaxis GI prophylaxis Monitor blood sugars JEROME AGUILERA MD Sep 03, 2021 09:19
[2021-09-03] MEDS: ENOXAPARIN 40 MG/0.4 ML SYRINGE. SQ SCH (09:56)
[2021-09-03] MEDS: MULTIVITAMINS,THERAPEUTIC 5 ML ORAL LIQUID. PEG SCH (09:56)
[2021-09-03] MEDS: FAMOTIDINE 20 MG/2 ML VIAL IVP SCH ×2 (10:01→21:20)
--- NOTE | 2021-09-03 10:23 | PDOC ---
[facility] [facility] PROGRESS NOTE Date of Service DOS: DATE: 09/03/21 TIME: 10:22 Chief Complaint Chief Complaint Resolving severe anion gap metabolic acidosis (Likely culprit is the Jardiance which can rarely cause severe acidosis) Respiratory failure requiring mechanical intubation ventilation DANIEL Hypernatremia Hypotension Severe sepsis Anemia Diabetes Elevated D-dimer History of Present Illness History of Present Illness 09/03/2021 Patient seen and examined in the ICU She is now extubated Very weak but alert Just finished a swallow study but failed Chart reviewed Discussed with RN 09/02/2021 Patient seen and examined in the ICU She remains on the vent failed her weaning trial yesterday We are trying another weaning trial this morning Current vent settings as follows AC/20/400/50 percent with 5 of PEEP Has mitts on for safety Jack to bedside drainage Has a rectal bag OG feed at 35 cc an hour Discussed with RN Chart reviewed 09/01/2021 Patient seen and examined in the ICU Remains on the vent AC/20/400/50/5 of PEEP Discussed with RN Chart reviewed We are doing weaning trials this morning Slightly sedated with Precedex Has mitts on for her safety Jack to bedside drainage NG is clamped Has a rectal bag 08/31/2021 Patient seen and examined in the ICU She remains on the vent AC/20/400/40 percent with 5 of PEEP Sedated with propofol Has IV Zosyn hanging Discussed with RN Patient failed her weaning trial yesterday due to tachypnea Chart reviewed 08/30/2021 Patient seen and examined in the ICU She remains on the vent AC/20/400/40 percent with 5 of PEEP Art line showing pressure of 167/91 Has IV Zosyn hanging OG feed running at 35 cc an hour Sedated with propofol Discussed with pharmacy Discussed with RN Chart reviewed 08/29/2021 Patient seen and examined in the ICU She is still on mechanical ventilation AC/20/400/50 5% with 6 of PEEP Sedated with fentanyl and Versed and propofol Has IV Levophed hanging Also on IV doxycycline currently Discussed with RN Chart reviewed Vitals/I&O Vitals/I&O: Vital Signs Date Time Temp Pulse Resp B/P (MAP) Pulse Ox O2 Delivery O2 Flow Rate FiO2 09/03/21 09:25 93 Nasal Cannula 5.0 09/03/21 09:00 80 27 146/78 (100) 09/03/21 03:00 99.1 99.1 I & O 09/02/21 09/02/21 09/03/21 15:00 23:00 07:00 Intake Total 250 ml Output Total 400 ml 1200 ml 625 ml Balance -150 ml -1200 ml -625 ml Physical Exam Physical Exam: [facility] HEENT: ETT, OGT tube in place. . Anicteric. LUNGS: Decreased breath sound. HEART: S1, S2. No murmurs. ABDOMEN: Soft, nondistended, bowel sounds present GENITOURINARY: Jack in place. EXTREMITIES: No pitting edema. DERMATOLOGIC: Warm, dry. No generalized rash. CENTRAL NERVOUS SYSTEM: Intubated and sedated. PSYCHIATRIC: Unable to assess. LINES: Right IJ otherwise no complications.. Art line clean. PIV clean. General: Alert, No acute distress, Other (Extremely weak can barely talk) Heart: Regular rate Lungs: Clear Abdomen: Normal bowel sounds Extremities: No clubbing Skin: No rashes Labs Labs: Laboratory Tests Test 09/02/21 10:35 09/02/21 11:32 09/02/21 18:15 09/02/21 20:51 O2 Saturation 96 % (92-99) Arterial Blood pH 7.48 (7.35-7.45) Arterial Blood pCO2 at Patient Temp 37 mmHg (35-46) Arterial Blood pO2 at Patient Temp 79 mmHg (65-108) Arterial Blood HCO3 27 mmol/L (21-28) Arterial Blood Base Excess 3 mmol/L (-3-3) FiO2 40 Glucose (Fingerstick) 234 mg/dL (70-99) 109 mg/dL (70-99) 117 mg/dL (70-99) Test 09/02/21 23:54 09/03/21 05:56 Glucose (Fingerstick) 120 mg/dL (70-99) 106 mg/dL (70-99) Assessment and Plan Assessmemt and Plan Resolving severe anion gap metabolic acidosis (Likely culprit is the Jardiance which can rarely cause severe acidosis) Respiratory failure requiring mechanical intubation ventilation DANIEL Hypernatremia Hypotension Severe sepsis Anemia Diabetes Elevated D-dimer Plan Hope to transfer out of ICU later today She is working with speech therapy PT OT if possible Trend labs IV Zosyn IV doxy Accu-Chek IV Pepcid for GI prophylaxis DVT prophylaxis Full code Appreciate subspecialist input ([facility] are following) Prognosis improving daily Comment Review of Relevant I have reviewed the following items marcela (where applicable) has been applied. Justifications for Admission Other Justification LATOYA SEPULVEDA III DO Sep 03, 2021 10:23
[2021-09-03] MEDS: AA 4.25 %/CALCIUM/LYTES/D5W 1,000 ML IV SCH (14:03)
[2021-09-04] VITALS (12 sets, daily range): BP systolic 128–151; BP diastolic 69–79
[2021-09-04] MEDS: PIPERACILLIN/TAZOBACTAM 3.375 GM in IV NORMAL SALINE 50ML 50 ML IV SCH ×2 (00:17→05:34)
[2021-09-04] MEDS: AA 4.25 %/CALCIUM/LYTES/D5W 1,000 ML IV SCH ×2 (02:55→17:08)
[2021-09-04] MEDS: LEVOTHYROXINE 150 MCG TABLET PO SCH (05:44)
[2021-09-04] MEDS: INSULIN LISPRO 300 UNITS/3 ML VIAL. SQ SCH ×4 (07:22→19:16)
[2021-09-04] MEDS: MULTIVITAMINS,THERAPEUTIC 5 ML ORAL LIQUID. PEG SCH (09:00)
--- NOTE | 2021-09-04 09:28 | PDOC ---
PULMONARY PROGRESS NOTES DATE: 09/04/21 TIME: 09:26 Subjective Patient extubated yesterday 09/02 N.p.o. for the dysphagia Patient not vaccinated Currently Nasal cannula oxygen Vitals Vital Signs Date Time Temp Pulse Resp B/P (MAP) Pulse Ox O2 Delivery O2 Flow Rate FiO2 09/04/21 07:00 76 144/77 (99) 93 Nasal Cannula 8.0 09/04/21 06:00 27 09/03/21 23:00 98.4 98.4 General: Alert Lungs: Clear Cardiovascular: S1, S2 Abdomen: Soft Neuro Exam: Alert Extremities: No Edema Skin: Warm Labs Laboratory Tests Test 09/02/21 10:35 09/02/21 11:32 09/02/21 18:15 09/02/21 20:51 O2 Saturation 96 % (92-99) Arterial Blood pH 7.48 (7.35-7.45) Arterial Blood pCO2 at Patient Temp 37 mmHg (35-46) Arterial Blood pO2 at Patient Temp 79 mmHg (65-108) Arterial Blood HCO3 27 mmol/L (21-28) Arterial Blood Base Excess 3 mmol/L (-3-3) FiO2 40 Glucose (Fingerstick) 234 mg/dL (70-99) 109 mg/dL (70-99) 117 mg/dL (70-99) Test 09/02/21 23:54 09/03/21 05:56 09/03/21 14:13 09/03/21 17:59 Glucose (Fingerstick) 120 mg/dL (70-99) 106 mg/dL (70-99) 122 mg/dL (70-99) 174 mg/dL (70-99) Test 09/04/21 00:24 09/04/21 06:44 Glucose (Fingerstick) 189 mg/dL (70-99) 227 mg/dL (70-99) Laboratory Tests Test 09/03/21 14:13 09/03/21 17:59 09/04/21 00:24 09/04/21 06:44 Glucose (Fingerstick) 122 mg/dL (70-99) 174 mg/dL (70-99) 189 mg/dL (70-99) 227 mg/dL (70-99) Medications Active Scripts Medications Dose Route/Sig Max Daily Dose Days Date Category Aspirin 81 Mg Tab.chew 1 Tab PO DAILY 08/26/21 Reported Codeine-Guaifen 10-100 mg/5 ml (Guaifenesin/Codeine Phosphate) 120 Ml Liquid 5 Ml PO PRN Q6HRS PRN MDD 20 Milliliter(s) 6 08/26/21 Reported Ibuprofen 600 Mg Tablet 600 Mg PO PRN Q8HRS PRN 08/26/21 Reported Ondansetron Odt (Ondansetron) 4 Mg Tab.rapdis 1 Tab PO PRN Q6-8HRS 08/26/21 Reported Benzonatate 100 Mg Capsule 1 Cap PO TID 08/26/21 Reported Carvedilol (Carvedilol) 6.25 Mg Tablet 6.25 Mg PO BIDWMEALS 08/26/21 Reported Levothyroxine Sodium 150 Mcg Tablet 1 Tab PO DAILY 08/26/21 Reported Levofloxacin 750 Mg Tablet 1 Tab PO DAILY PRN 08/26/21 Reported Jardiance (Empagliflozin) 10 Mg Tablet 10 Mg PO DAILY 08/26/21 Reported Lisinopril 20 Mg Tablet 1 Tab PO BID 08/26/21 Reported Metformin Hcl 1,000 Mg Tablet 1,000 Mg PO BIDWMEALS 08/26/21 Reported Crestor (Rosuvastatin Calcium) 40 Mg Tablet 20 Mg PO HS 08/26/21 Reported Ventolin Hfa Inhaler (Albuterol Sulfate) 18 Gm Hfa.aer.ad 2 Puff INH Q4HRS 08/26/21 Reported Brilinta (Ticagrelor) 90 Mg Tablet 90 Mg PO BID 08/26/21 Reported Comments Chest x-ray reviewed 08/29/2021. Bilateral mild interstitial infiltrates. No significant change. Chest x-ray reviewed 08/27/2021 Bilateral diffuse interstitial infiltrates related to COVID-19 viral pneumonia Impression . 1. Acute respiratory failure multifactorial 2. Severe metabolic acidosis. Likely etiology is Jardiance induced metabolic acidosis versus diabetic ketoacidosis. Her lactic acid was 1.6. She clinically has a component of septic shock as well. 3. Abnormal chest x-ray and CT angiogram with diffuse bilateral patchy infiltrates consistent with viral pneumonia. 4. COVID-19 positive. Not vaccinated 5. Severe protein-calorie malnutrition. 6. Marked leukocytosis.Improved 7. Septic shock. 8. Hyponatremia, now improved 9. Severe metabolic acidosis likely secondary to Jardiance induced, with a bicarb of 4 present on admission, now significantly improved 10. Negative CT for pulmonary embolism Plan . Required increasing oxygen overnight N.p.o. status for now follow speech eval Extubated 128 Transfer out of the ICU DVT prophylaxis DC antibiotics Continue DVT prophylaxis GI prophylaxis Monitor blood sugars JEROME AGUILERA MD Sep 04, 2021 09:27
[2021-09-04] MEDS: ENOXAPARIN 40 MG/0.4 ML SYRINGE. SQ SCH (10:05)
[2021-09-04] MEDS: FAMOTIDINE 20 MG/2 ML VIAL IVP SCH ×2 (10:05→21:09)
--- NOTE | 2021-09-04 11:49 | PDOC ---
[employer] PROGRESS NOTE Date of Service DOS: DATE: 09/04/21 TIME: 11:49 Chief Complaint Chief Complaint Resolving severe anion gap metabolic acidosis (Likely culprit is the Jardiance which can rarely cause severe acidosis) Respiratory failure requiring mechanical intubation ventilation DANIEL Hypernatremia Hypotension Severe sepsis Anemia Diabetes Elevated D-dimer History of Present Illness History of Present Illness 09/04/2021 Patient seen and examined in the ICU We had to increase her O2 per nasal cannula to 8 L but clinically she is stable Very weak Discussed with RN Chart reviewed 09/03/2021 Patient seen and examined in the ICU She is now extubated Very weak but alert Just finished a swallow study but failed Chart reviewed Discussed with RN 09/02/2021 Patient seen and examined in the ICU She remains on the vent failed her weaning trial yesterday We are trying another weaning trial this morning Current vent settings as follows AC/20/400/50 percent with 5 of PEEP Has mitts on for safety Jack to bedside drainage Has a rectal bag OG feed at 35 cc an hour Discussed with RN Chart reviewed 09/01/2021 Patient seen and examined in the ICU Remains on the vent AC/20/400/50/5 of PEEP Discussed with RN Chart reviewed We are doing weaning trials this morning Slightly sedated with Precedex Has mitts on for her safety Jack to bedside drainage NG is clamped Has a rectal bag 08/31/2021 Patient seen and examined in the ICU She remains on the vent AC/20/400/40 percent with 5 of PEEP Sedated with propofol Has IV Zosyn hanging Discussed with RN Patient failed her weaning trial yesterday due to tachypnea Chart reviewed 08/30/2021 Patient seen and examined in the ICU She remains on the vent AC/20/400/40 percent with 5 of PEEP Art line showing pressure of 167/91 Has IV Zosyn hanging OG feed running at 35 cc an hour Sedated with propofol Discussed with pharmacy Discussed with RN Chart reviewed 08/29/2021 Patient seen and examined in the ICU She is still on mechanical ventilation AC/20/400/50 5% with 6 of PEEP Sedated with fentanyl and Versed and propofol Has IV Levophed hanging Also on IV doxycycline currently Discussed with RN Chart reviewed Vitals/I&O Vitals/I&O: Vital Signs Date Time Temp Pulse Resp B/P (MAP) Pulse Ox O2 Delivery O2 Flow Rate FiO2 09/04/21 07:00 76 144/77 (99) 93 Nasal Cannula 8.0 09/04/21 06:00 27 09/03/21 23:00 98.4 98.4 l I & O 09/03/21 09/03/21 09/04/21 15:00 23:00 07:00 Intake Total 263 ml Output Total 600 ml 695 ml 825 ml Balance -600 ml -432 ml -825 ml Physical Exam Physical Exam: General: Alert, No acute distress, Other (Still very weak) Heart: Regular rate Lungs: Clear Abdomen: Normal bowel sounds Extremities: No clubbing Skin: No rashes Labs Labs: Laboratory Tests Test 09/03/21 14:13 09/03/21 17:59 09/04/21 00:24 09/04/21 06:44 Glucose (Fingerstick) 122 mg/dL (70-99) 174 mg/dL (70-99) 189 mg/dL (70-99) 227 mg/dL (70-99) Assessment and Plan Assessmemt and Plan Resolving severe anion gap metabolic acidosis (Likely culprit is the Jardiance which can rarely cause severe acidosis) Respiratory failure requiring mechanical intubation ventilation DANIEL Hypernatremia Hypotension Severe sepsis Anemia Diabetes Elevated D-dimer Plan Hope to transfer out of ICU later today Trying to wean down her O2 requirements (currently on 8 L) Speech therapy following Hope to start a diet soon PT OT if possible Trend labs IV Zosyn IV doxy Accu-Chek IV Pepcid for GI prophylaxis DVT prophylaxis Full code Appreciate subspecialist input ([facility] and ID are following) Prognosis improving daily Per pulmonary recommendations please see the following and we certainly agree and appreciate their input; 1. Acute respiratory failure multifactorial 2. Severe metabolic acidosis. Likely etiology is Jardiance induced metabolic acidosis versus diabetic ketoacidosis. Her lactic acid was 1.6. She clinically has a component of septic shock as well. 3. Abnormal chest x-ray and CT angiogram with diffuse bilateral patchy infiltrates consistent with viral pneumonia. 4. COVID-19 positive. Not vaccinated 5. Severe protein-calorie malnutrition. 6. Marked leukocytosis.Improved 7. Septic shock. 8. Hyponatremia, now improved 9. Severe metabolic acidosis likely secondary to Jardiance induced, with a bicarb of 4 present on admission, now significantly improved 10. Negative CT for pulmonary embolism Plan Plan . Required increasing oxygen overnight N.p.o. status for now follow speech eval Extubated 128 Transfer out of the ICU DVT prophylaxis DC antibiotics Continue DVT prophylaxis GI prophylaxis Monitor blood sugars Comment Review of Relevant I have reviewed the following items marcela (where applicable) has been applied. Medications: Current Medications Medications (Trade) Dose Ordered Sig/Silvia Route PRN Reason Start Time Stop Time Status Last Admin Dose Admin Amino Acids/ Electrolytes/ Dextrose 1,000 ml @ 75 mls/hr [id number] IV 09/03/21 13:00 09/04/21 02:55 Justifications for Admission Other Justification LATOYA SEPULVEDA III DO Sep 04, 2021 11:49
[2021-09-04] MEDS ORDERED: INSULIN GLARGINE SYRINGE. SQ SCH (21:00)
[2021-09-05] MEDS: INSULIN LISPRO 300 UNITS/3 ML VIAL. SQ SCH ×4 (00:05→17:43)
[2021-09-05 03:02] VITALS: BP 140/76
[2021-09-05] MEDS: AA 4.25 %/CALCIUM/LYTES/D5W 1,000 ML IV SCH ×2 (05:30→20:20)
[2021-09-05 07:00] VITALS: BP 133/74
[2021-09-05] MEDS: FAMOTIDINE 20 MG/2 ML VIAL IVP SCH ×2 (07:53→21:52)
[2021-09-05] MEDS: ENOXAPARIN 40 MG/0.4 ML SYRINGE. SQ SCH (07:53)
[2021-09-05] MEDS: MULTIVITAMINS,THERAPEUTIC 5 ML ORAL LIQUID. PEG SCH ×2 (07:53→07:56)
--- NOTE | 2021-09-05 08:51 | PDOC ---
PULMONARY PROGRESS NOTES DATE: 09/05/21 TIME: 08:51 Subjective Patient extubated 09/02 Not more short of air N.p.o. for the dysphagia Patient not vaccinated Currently Nasal cannula oxygen Vitals Vital Signs Date Time Temp Pulse Resp B/P (MAP) Pulse Ox O2 Delivery O2 Flow Rate FiO2 09/05/21 03:02 98.6 71 14 140/76 (97) 94 Nasal Cannula 4.0 98.6 General: Alert Lungs: Clear Cardiovascular: S1, S2 Abdomen: Soft Neuro Exam: Alert Extremities: No Edema Skin: Warm Labs Laboratory Tests Test 09/03/21 14:13 09/03/21 17:59 09/04/21 00:24 09/04/21 06:44 Glucose (Fingerstick) 122 mg/dL (70-99) 174 mg/dL (70-99) 189 mg/dL (70-99) 227 mg/dL (70-99) Test 09/04/21 19:12 09/04/21 23:57 09/05/21 05:28 Glucose (Fingerstick) 228 mg/dL (70-99) 204 mg/dL (70-99) 217 mg/dL (70-99) Laboratory Tests Test 09/04/21 19:12 09/04/21 23:57 09/05/21 05:28 Glucose (Fingerstick) 228 mg/dL (70-99) 204 mg/dL (70-99) 217 mg/dL (70-99) Medications Active Scripts Medications Dose Route/Sig Max Daily Dose Days Date Category Aspirin 81 Mg Tab.chew 1 Tab PO DAILY 08/26/21 Reported Codeine-Guaifen 10-100 mg/5 ml (Guaifenesin/Codeine Phosphate) 120 Ml Liquid 5 Ml PO PRN Q6HRS PRN MDD 20 Milliliter(s) 6 08/26/21 Reported Ibuprofen 600 Mg Tablet 600 Mg PO PRN Q8HRS PRN 08/26/21 Reported Ondansetron Odt (Ondansetron) 4 Mg Tab.rapdis 1 Tab PO PRN Q6-8HRS 08/26/21 Reported Benzonatate 100 Mg Capsule 1 Cap PO TID 08/26/21 Reported Carvedilol (Carvedilol) 6.25 Mg Tablet 6.25 Mg PO BIDWMEALS 08/26/21 Reported Levothyroxine Sodium 150 Mcg Tablet 1 Tab PO DAILY 08/26/21 Reported Levofloxacin 750 Mg Tablet 1 Tab PO DAILY PRN 08/26/21 Reported Jardiance (Empagliflozin) 10 Mg Tablet 10 Mg PO DAILY 08/26/21 Reported Lisinopril 20 Mg Tablet 1 Tab PO BID 08/26/21 Reported Metformin Hcl 1,000 Mg Tablet 1,000 Mg PO BIDWMEALS 08/26/21 Reported Crestor (Rosuvastatin Calcium) 40 Mg Tablet 20 Mg PO HS 08/26/21 Reported Ventolin Hfa Inhaler (Albuterol Sulfate) 18 Gm Hfa.aer.ad 2 Puff INH Q4HRS 08/26/21 Reported Brilinta (Ticagrelor) 90 Mg Tablet 90 Mg PO BID 08/26/21 Reported Comments Chest x-ray reviewed 08/29/2021. Bilateral mild interstitial infiltrates. No significant change. Chest x-ray reviewed 08/27/2021 Bilateral diffuse interstitial infiltrates related to COVID-19 viral pneumonia Impression . 1. Acute respiratory failure multifactorial, secondary to COVID-19 viral pneumonia ARDS 2. Severe metabolic acidosis. Likely etiology is Jardiance induced metabolic acidosis versus diabetic ketoacidosis. Her lactic acid was 1.6. She clinically has a component of septic shock as well. 3. Abnormal chest x-ray and CT angiogram with diffuse bilateral patchy infiltrates consistent with viral pneumonia. 4. COVID-19 positive. Not vaccinated 5. Severe protein-calorie malnutrition. 6. Marked leukocytosis.Improved 7. Septic shock. 8. Hyponatremia, now improved 9. Severe metabolic acidosis likely secondary to Jardiance induced, with a bicarb of 4 present on admission, now significantly improved 10. Negative CT for pulmonary embolism 11. Dysphagia Plan . Follow-up with speech Continue oxygen per nasal cannula PT OT, up to chair Extubated 128 Transfer out of the ICU DVT prophylaxis DC antibiotics Continue DVT prophylaxis GI prophylaxis Monitor blood sugars JEROME AGUILERA MD Sep 05, 2021 08:51
[2021-09-05 11:00] VITALS: BP 133/75
--- NOTE | 2021-09-05 14:06 | PDOC ---
[employer] PROGRESS NOTE Date of Service DOS: DATE: 09/05/21 TIME: 14:05 Chief Complaint Chief Complaint Resolving severe anion gap metabolic acidosis (Likely culprit is the Jardiance which can rarely cause severe acidosis) Respiratory failure requiring mechanical intubation ventilation DANIEL Hypernatremia Hypotension Severe sepsis Anemia Diabetes Elevated D-dimer History of Present Illness History of Present Illness 09/05/2021 Patient seenin the ICU waiting for speech therapy eval for dysphagia, wants to eat, awake and alert We had to increase her O2 per nasal cannula to 8 L but clinically she is stable Very weak Discussed with RN Chart reviewed Vitals/I&O Vitals/I&O: Vital Signs Date Time Temp Pulse Resp B/P (MAP) Pulse Ox O2 Delivery O2 Flow Rate FiO2 09/05/21 11:00 97.6 72 20 133/75 (94) 96 Nasal Cannula 4.0 97.6 I & O 09/04/21 09/04/21 09/05/21 15:00 23:00 07:00 Intake Total 0 ml 1000 ml Output Total 700 ml 360 ml 1300 ml Balance -700 ml -360 ml -300 ml Physical Exam Physical Exam: General: Alert, No acute distress, Other (Still very weak) Heart: Regular rate Lungs: Clear Abdomen: Normal bowel sounds Extremities: No clubbing Skin: No rashes Labs Labs: Laboratory Tests Test 09/04/21 19:12 09/04/21 23:57 09/05/21 05:28 09/05/21 12:00 Glucose (Fingerstick) 228 mg/dL (70-99) 204 mg/dL (70-99) 217 mg/dL (70-99) 225 mg/dL (70-99) Comment Review of Relevant I have reviewed the following items marcela (where applicable) has been applied. Medications: Current Medications Medications (Trade) Dose Ordered Sig/Silvia Route PRN Reason Start Time Stop Time Status Last Admin Dose Admin Insulin Glargine (Lantus Syringe) 10 unit QHS SQ 09/04/21 21:00 09/04/21 20:48 Justifications for Admission Other Justification MARNIE CORRAL MD Sep 05, 2021 14:06
[2021-09-05 15:00] VITALS: BP 119/68
[2021-09-05] MEDS: BENZOCAINE/MENTHOL LOZENGE. PO PRN (15:27)
--- NOTE | 2021-09-05 16:39 | NUR ---
SS following up with discharge planning. SS reviewed pt chart and discussed with pt RN. Pt is currently requiring oxygen at four liters nasal canula. COVID19 positive. No home oxygen. PT/OT recommended acute rehabilitation. NPO. ST following. Pt failed swallow study today and will repeat tomorrow. Pt on PPN. SS met with pt and discussed discharge planning and acute rehabilitation. Pt declining acute rehabilitation at this time. Pt reported that she wishes to return to home with her son and daughter and come to the hospital for Cardiac Rehabilitation as outpatient. Pt's RN notified. SS will continue to follow for discharge planning.
--- NOTE | 2021-09-05 18:50 | NUR ---
Pt transferred upstairs by bed. All patient belongings taken with patient.
--- NOTE | 2021-09-05 18:51 | NUR ---
Pt arrived on unit at 1850, transfer report received from HAMIDA Reynoso. This RN gave report to HAMIDA Roberts.
[2021-09-05 19:00] VITALS: BP 132/75
[2021-09-05] MEDS: INSULIN GLARGINE SYRINGE. SQ SCH (21:52)
[2021-09-05 23:06] VITALS: BP 142/70
[2021-09-06] MEDS: INSULIN LISPRO 300 UNITS/3 ML VIAL. SQ SCH ×5 (00:38→17:15)
[2021-09-06 03:10] VITALS: BP 135/72
[2021-09-06 07:00] VITALS: BP 143/73
[2021-09-06] MEDS: MULTIVITAMINS,THERAPEUTIC 5 ML ORAL LIQUID. PEG SCH (07:20)
[2021-09-06] MEDS: FAMOTIDINE 20 MG/2 ML VIAL IVP SCH (08:29)
[2021-09-06] MEDS: ENOXAPARIN 40 MG/0.4 ML SYRINGE. SQ SCH (08:30)
[2021-09-06] MEDS: AA 4.25 %/CALCIUM/LYTES/D5W 1,000 ML IV SCH ×2 (09:01→22:30)
--- NOTE | 2021-09-06 09:42 | PDOC ---
PULMONARY PROGRESS NOTES DATE: 09/06/21 TIME: 09:39 Subjective Patient sitting up in bed this morning, States "feeling stronger" ST to repeat swallow eval today Currently on 3.5L NC Vitals Vital Signs Date Time Temp Pulse Resp B/P (MAP) Pulse Ox O2 Delivery O2 Flow Rate FiO2 09/06/21 08:30 Nasal Cannula 4.0 09/06/21 07:00 97.5 74 18 143/73 (96) 92 97.5 General: Alert Lungs: Clear Cardiovascular: S1, S2 Abdomen: Soft Neuro Exam: Alert Extremities: No Edema Skin: Warm Labs Laboratory Tests Test 09/04/21 19:12 09/04/21 23:57 09/05/21 05:28 09/05/21 12:00 Glucose (Fingerstick) 228 mg/dL (70-99) 204 mg/dL (70-99) 217 mg/dL (70-99) 225 mg/dL (70-99) Test 09/05/21 17:41 09/05/21 21:58 09/06/21 00:31 09/06/21 05:37 Glucose (Fingerstick) 253 mg/dL (70-99) 194 mg/dL (70-99) 220 mg/dL (70-99) 179 mg/dL (70-99) Laboratory Tests Test 09/05/21 12:00 09/05/21 17:41 09/05/21 21:58 09/06/21 00:31 Glucose (Fingerstick) 225 mg/dL (70-99) 253 mg/dL (70-99) 194 mg/dL (70-99) 220 mg/dL (70-99) Test 09/06/21 05:37 Glucose (Fingerstick) 179 mg/dL (70-99) Medications Active Scripts Medications Dose Route/Sig Max Daily Dose Days Date Category Aspirin 81 Mg Tab.chew 1 Tab PO DAILY 08/26/21 Reported Codeine-Guaifen 10-100 mg/5 ml (Guaifenesin/Codeine Phosphate) 120 Ml Liquid 5 Ml PO PRN Q6HRS PRN MDD 20 Milliliter(s) 6 08/26/21 Reported Ibuprofen 600 Mg Tablet 600 Mg PO PRN Q8HRS PRN 08/26/21 Reported Ondansetron Odt (Ondansetron) 4 Mg Tab.rapdis 1 Tab PO PRN Q6-8HRS 08/26/21 Reported Benzonatate 100 Mg Capsule 1 Cap PO TID 08/26/21 Reported Carvedilol (Carvedilol) 6.25 Mg Tablet 6.25 Mg PO BIDWMEALS 08/26/21 Reported Levothyroxine Sodium 150 Mcg Tablet 1 Tab PO DAILY 08/26/21 Reported Levofloxacin 750 Mg Tablet 1 Tab PO DAILY PRN 08/26/21 Reported Jardiance (Empagliflozin) 10 Mg Tablet 10 Mg PO DAILY 08/26/21 Reported Lisinopril 20 Mg Tablet 1 Tab PO BID 08/26/21 Reported Metformin Hcl 1,000 Mg Tablet 1,000 Mg PO BIDWMEALS 08/26/21 Reported Crestor (Rosuvastatin Calcium) 40 Mg Tablet 20 Mg PO HS 08/26/21 Reported Ventolin Hfa Inhaler (Albuterol Sulfate) 18 Gm Hfa.aer.ad 2 Puff INH Q4HRS 08/26/21 Reported Brilinta (Ticagrelor) 90 Mg Tablet 90 Mg PO BID 08/26/21 Reported Comments Chest x-ray reviewed 08/29/2021. Bilateral mild interstitial infiltrates. No significant change. Chest x-ray reviewed 08/27/2021 Bilateral diffuse interstitial infiltrates related to COVID-19 viral pneumonia Impression . 1. Acute respiratory failure multifactorial, secondary to COVID-19 viral pneumonia ARDS 2. Severe metabolic acidosis. Likely etiology is Jardiance induced metabolic acidosis versus diabetic ketoacidosis. Her lactic acid was 1.6. She clinically has a component of septic shock as well. 3. Abnormal chest x-ray and CT angiogram with diffuse bilateral patchy infiltrates consistent with viral pneumonia. 4. COVID-19 positive. Not vaccinated 5. Severe protein-calorie malnutrition. 6. Marked leukocytosis.Improved 7. Septic shock. 8. Hyponatremia, now improved 9. Severe metabolic acidosis likely secondary to Jardiance induced, with a bicarb of 4 present on admission, now significantly improved 10. Negative CT for pulmonary embolism 11. Dysphagia Plan . Updated 09/06 Repeat speech eval today PT OT DVT PPX Continue O2 supplementation Follow-up with speech Continue oxygen per nasal cannula PT OT, up to chair Extubated 128 Transfer out of the ICU DVT prophylaxis DC antibiotics Continue DVT prophylaxis GI prophylaxis Monitor blood sugars JEROME AGUILERA MD Sep 06, 2021 09:42
--- NOTE | 2021-09-06 10:15 | NUR ---
SW following. Discussed with RN, per Kenyatta () pt wanting to do outpatient cardiac rehab, but needs to pass swallow to discharge home. COVID-19 positive. LAMIN will continue to follow. Addendum: 09/06/21 at 1548 by DELANEY KIMBLE LAMIN spoke with pt, pt agreeable to SNF now, does not have a preference. LAMIN screened pt at [facility] and to check if pt has a SNF benefit. Pt does have a benefit but will need insurance approval first. Pt requested LAMIN notify her daughter in law, LAMIN to call tomorrow morning. RN notified.
[2021-09-06 11:00] VITALS: BP 154/67
--- NOTE | 2021-09-06 13:44 | PDOC ---
[employer] PROGRESS NOTE Date of Service DOS: DATE: 09/06/21 TIME: 13:43 Chief Complaint Chief Complaint Resolving severe anion gap metabolic acidosis (Likely culprit is the Jardiance which can rarely cause severe acidosis) Respiratory failure requiring mechanical intubation ventilation DANIEL Hypernatremia Hypotension Severe sepsis Anemia Diabetes Elevated D-dimer History of Present Illness History of Present Illness 2021-09-06 No acute events overnight. Patient seen examined bedside. Saturating 92% on 4 L nasal cannula. Pending repeat speech eval today for swallow study. Currently on all IV medications now. Pending PT OT eval. Will discharge home once cleared. Patient's chart, labs, images were reviewed and discussed with RN 09/05/2021 Patient seenin the ICU waiting for speech therapy eval for dysphagia, wants to eat, awake and alert We had to increase her O2 per nasal cannula to 8 L but clinically she is stable Very weak Discussed with RN Chart reviewed Vitals/I&O Vitals/I&O: Vital Signs Date Time Temp Pulse Resp B/P (MAP) Pulse Ox O2 Delivery O2 Flow Rate FiO2 09/06/21 11:00 98.0 68 18 154/67 (96) 94 Nasal Cannula 98.0 09/06/21 08:30 4.0 I & O 09/05/21 09/05/21 09/06/21 15:00 23:00 07:00 Intake Total 1000 ml Output Total 600 ml 450 ml Balance -600 ml 1000 ml -450 ml Physical Exam Physical Exam: General: Alert, No acute distress, Other (Still very weak) Heart: Regular rate Lungs: Clear Abdomen: Normal bowel sounds Extremities: No clubbing Skin: No rashes Labs Labs: Laboratory Tests Test 09/05/21 17:41 09/05/21 21:58 09/06/21 00:31 09/06/21 05:37 Glucose (Fingerstick) 253 mg/dL (70-99) 194 mg/dL (70-99) 220 mg/dL (70-99) 179 mg/dL (70-99) Test 09/06/21 12:06 Glucose (Fingerstick) 257 mg/dL (70-99) Comment Review of Relevant I have reviewed the following items marcela (where applicable) has been applied. Medications: Current Medications Medications (Trade) Dose Ordered Sig/Silvia Route PRN Reason Start Time Stop Time Status Last Admin Dose Admin Insulin Glargine (Lantus Syringe) 15 unit QHS SQ 09/05/21 21:00 09/05/21 21:52 Throat Lozenges (Cepacol Sore Throat Lozenge) 1 dylan PRN Q2HRS PRN PO SORE THROAT 09/05/21 14:45 09/05/21 15:27 Justifications for Admission Other Justification MARY CARMEN DAVIS MD Sep 06, 2021 13:44
[2021-09-06 15:00] VITALS: BP 120/67
--- NOTE | 2021-09-06 15:43 | NUR ---
This RN obtained telephone orders from Dr. Virgen to remove pt's vicente.
--- NOTE | 2021-09-06 17:04 | NUR ---
Pt's FSBS 394. This RN notified Dr. Chavez. He stated he would review the pt's chart and place orders. Will await orders.
[2021-09-06] MEDS ORDERED: INSULIN LISPRO 300 UNITS/3 ML VIAL. SQ ONE (17:15)
[2021-09-06 19:00] VITALS: BP 177/94
[2021-09-06] MEDS ORDERED: INSULIN GLARGINE SYRINGE. SQ SCH (21:00)
[2021-09-06] MEDS: FAMOTIDINE 20 MG TABLET. PO SCH (22:30)
[2021-09-06] MEDS: BENZOCAINE/MENTHOL LOZENGE. PO PRN (22:30)
[2021-09-06] MEDS: INSULIN GLARGINE SYRINGE. SQ SCH (22:32)
[2021-09-06 23:00] VITALS: BP 119/83
[2021-09-07 03:00] VITALS: BP 155/76
[2021-09-07] MEDS: LEVOTHYROXINE 150 MCG TABLET PO SCH (06:23)
[2021-09-07 07:00] VITALS: BP 134/76
[2021-09-07 07:07] LABS: BASO % 1 % (0-3); EOS # 0.1 x10^3/uL (0.0-0.7); EOS % 1 % (0-3); HEMATOCRIT 33.5 % (36.0-47.0); HEMOGLOBIN 11.2 g/dL (12.0-15.5); LYMPH % 18 % (24-48); MEAN CORPUSCULAR HEMOGLOBIN 29 pg (25-35); MEAN CORPUSCULAR HGB CONC 34 g/dL (31-37); MEAN CORPUSCULAR VOLUME 88 fL (79-100); MONO # 0.4 x10^3/uL (0.0-1.1); MONO % 6 % (0-9); NEUT # 4.2 x10^3/uL (1.8-7.7); NEUT % 74 % (31-73); PLATELET COUNT 359 x10^3/uL (140-400); RED BLOOD COUNT 3.81 x10^6/uL (3.50-5.40); RED CELL DISTRIBUTION WIDTH 15.1 % (11.5-14.5); WHITE BLOOD COUNT 5.7 x10^3/uL (4.0-11.0)
[2021-09-07 07:22] LABS: ALBUMIN 1.8 g/dL (3.4-5.0); ALBUMIN/GLOBULIN RATIO 0.4 (1.0-1.7); CALCIUM 8.1 mg/dL (8.5-10.1); CREATININE 0.6 mg/dL (0.6-1.0); GFR 101.3; TOTAL BILIRUBIN 0.3 mg/dL (0.2-1.0); TOTAL PROTEIN 6.7 g/dL (6.4-8.2)
--- NOTE | 2021-09-07 08:52 | PDOC ---
[employer] PROGRESS NOTE Date of Service DOS: DATE: 09/07/21 TIME: 08:40 Chief Complaint Chief Complaint Resolving severe anion gap metabolic acidosis - DKA Respiratory failure requiring mechanical intubation ventilation DANIEL Hypernatremia Hypotension Severe sepsis Anemia Diabetes Elevated D-dimer COVID 19 - diagnosed 08/21/21 in ED, had symptoms for a week prior to that History of Present Illness History of Present Illness 09/07: Seen bedside eating dysphagia 3 diet with thickened liquids tolerated well minimal cough. O2 saturations 92% on 4 L/min nasal cannula. She is very weak unable to get out of bed without assistance. She is anxious to start r ehabilitation. 09/06: No acute events overnight. Patient seen examined bedside. Saturating 92% on 4 L nasal cannula. Pending repeat speech eval today for swallow study. Currently on all IV medications now. Pending PT OT eval. Will discharge home once cleared. Patient's chart, labs, images were reviewed and discussed with RN 09/05: Patient seen in the ICU. waiting for speech therapy eval for dysphagia, wants to eat, awake and alert. We had to increase her O2 per nasal cannula to 8 L. Very weak. Vitals/I&O Vitals/I&O: Vital Signs Date Time Temp Pulse Resp B/P (MAP) Pulse Ox O2 Delivery O2 Flow Rate FiO2 09/07/21 07:00 97.7 76 20 134/76 (95) 94 Nasal Cannula 5.0 97.7 I & O 09/06/21 09/06/21 09/07/21 15:00 23:00 07:00 Intake Total 1000 ml 1240 ml Output Total 250 ml Balance 1000 ml 1240 ml -250 ml Physical Exam Physical Exam: General: Alert, Oriented X3, Cooperative, No acute distress, Other (Still very weak) Heart: Regular rate Lungs: Clear Abdomen: Normal bowel sounds Extremities: No clubbing Skin: No rashes Labs Labs: Laboratory Tests Test 09/06/21 12:06 09/06/21 16:12 09/06/21 21:45 09/07/21 04:50 Glucose (Fingerstick) 257 mg/dL (70-99) 394 mg/dL (70-99) 302 mg/dL (70-99) White Blood Count 5.7 x10^3/uL (4.0-11.0) Red Blood Count 3.81 x10^6/uL (3.50-5.40) Hemoglobin 11.2 g/dL (12.0-15.5) Hematocrit 33.5 % (36.0-47.0) Mean Corpuscular Volume 88 fL (79-100) Mean Corpuscular Hemoglobin 29 pg (25-35) Mean Corpuscular Hemoglobin Concent 34 g/dL (31-37) Red Cell Distribution Width 15.1 % (11.5-14.5) Platelet Count 359 x10^3/uL (140-400) Neutrophils (%) (Auto) 74 % (31-73) Lymphocytes (%) (Auto) 18 % (24-48) Monocytes (%) (Auto) 6 % (0-9) Eosinophils (%) (Auto) 1 % (0-3) Basophils (%) (Auto) 1 % (0-3) Neutrophils # (Auto) 4.2 x10^3/uL (1.8-7.7) Lymphocytes # (Auto) 1.0 x10^3/uL (1.0-4.8) Monocytes # (Auto) 0.4 x10^3/uL (0.0-1.1) Eosinophils # (Auto) 0.1 x10^3/uL (0.0-0.7) Basophils # (Auto) 0.0 x10^3/uL (0.0-0.2) Sodium Level 140 mmol/L (136-145) Potassium Level 4.0 mmol/L (3.5-5.1) Chloride Level 105 mmol/L (98-107) Carbon Dioxide Level 28 mmol/L (21-32) Anion Gap 7 (6-14) Blood Urea Nitrogen 19 mg/dL (7-20) Creatinine 0.6 mg/dL (0.6-1.0) Estimated GFR (Cockcroft-Gault) 101.3 BUN/Creatinine Ratio 32 (6-20) Glucose Level 317 mg/dL (70-99) Calcium Level 8.1 mg/dL (8.5-10.1) Total Bilirubin 0.3 mg/dL (0.2-1.0) Aspartate Amino Transf (AST/SGOT) 13 U/L (15-37) Alanine Aminotransferase (ALT/SGPT) 28 U/L (14-59) Alkaline Phosphatase 149 U/L (46-116) Total Protein 6.7 g/dL (6.4-8.2) Albumin 1.8 g/dL (3.4-5.0) Albumin/Globulin Ratio 0.4 (1.0-1.7) Test 09/07/21 07:59 Glucose (Fingerstick) 298 mg/dL (70-99) Comment Review of Relevant I have reviewed the following items marcela (where applicable) has been applied. Medications: Current Medications Medications (Trade) Dose Ordered Sig/Silvia Route PRN Reason Start Time Stop Time Status Last Admin Dose Admin Levothyroxine Sodium (Synthroid) 150 mcg DAILY06 PO 09/07/21 06:00 09/07/21 06:23 Famotidine (Pepcid) 20 mg BID PO 09/06/21 21:00 09/06/21 22:30 Insulin Human Lispro (HumaLOG) 16 units 1X ONCE SQ 09/06/21 17:15 09/06/21 17:16 DC 09/06/21 17:16 Justifications for Admission Other Justification CLARENCE LOMAX MD Sep 07, 2021 08:52
[2021-09-07] MEDS: ENOXAPARIN 40 MG/0.4 ML SYRINGE. SQ SCH (09:05)
[2021-09-07] MEDS: MULTIVITAMIN with MINERAL TABLET. PO SCH (09:06)
[2021-09-07] MEDS: FAMOTIDINE 20 MG TABLET. PO SCH ×2 (09:07→21:21)
[2021-09-07] MEDS: INSULIN LISPRO 300 UNITS/3 ML VIAL. SQ SCH ×6 (09:23→18:27)
[2021-09-07 11:00] VITALS: BP 119/67
--- NOTE | 2021-09-07 14:31 | NUR ---
SW following. Discussed with RN, pt accepted at [facility] for SNF, pending insurance approval. SW notified pt's daughter in law, Danielle (ph: [phone]) at pt's request. RN notified. LAMIN will continue to follow.
[2021-09-07 15:00] VITALS: BP 110/57
--- NOTE | 2021-09-07 16:51 | PDOC ---
PULMONARY PROGRESS NOTES DATE: 09/07/21 TIME: 16:50 Subjective Patient feels better, no more short of air Regular diet Vitals Vital Signs Date Time Temp Pulse Resp B/P (MAP) Pulse Ox O2 Delivery O2 Flow Rate FiO2 09/07/21 15:00 98.5 90 110/57 (74) 98.5 09/07/21 11:00 20 94 Nasal Cannula 5.0 General: Alert Lungs: Clear Cardiovascular: S1, S2 Abdomen: Soft Neuro Exam: Alert Extremities: No Edema Skin: Warm Labs Laboratory Tests Test 09/05/21 17:41 09/05/21 21:58 09/06/21 00:31 09/06/21 05:37 Glucose (Fingerstick) 253 mg/dL (70-99) 194 mg/dL (70-99) 220 mg/dL (70-99) 179 mg/dL (70-99) Test 09/06/21 12:06 09/06/21 16:12 09/06/21 21:45 09/07/21 04:50 Glucose (Fingerstick) 257 mg/dL (70-99) 394 mg/dL (70-99) 302 mg/dL (70-99) White Blood Count 5.7 x10^3/uL (4.0-11.0) Red Blood Count 3.81 x10^6/uL (3.50-5.40) Hemoglobin 11.2 g/dL (12.0-15.5) Hematocrit 33.5 % (36.0-47.0) Mean Corpuscular Volume 88 fL (79-100) Mean Corpuscular Hemoglobin 29 pg (25-35) Mean Corpuscular Hemoglobin Concent 34 g/dL (31-37) Red Cell Distribution Width 15.1 % (11.5-14.5) Platelet Count 359 x10^3/uL (140-400) Neutrophils (%) (Auto) 74 % (31-73) Lymphocytes (%) (Auto) 18 % (24-48) Monocytes (%) (Auto) 6 % (0-9) Eosinophils (%) (Auto) 1 % (0-3) Basophils (%) (Auto) 1 % (0-3) Neutrophils # (Auto) 4.2 x10^3/uL (1.8-7.7) Lymphocytes # (Auto) 1.0 x10^3/uL (1.0-4.8) Monocytes # (Auto) 0.4 x10^3/uL (0.0-1.1) Eosinophils # (Auto) 0.1 x10^3/uL (0.0-0.7) Basophils # (Auto) 0.0 x10^3/uL (0.0-0.2) Sodium Level 140 mmol/L (136-145) Potassium Level 4.0 mmol/L (3.5-5.1) Chloride Level 105 mmol/L (98-107) Carbon Dioxide Level 28 mmol/L (21-32) Anion Gap 7 (6-14) Blood Urea Nitrogen 19 mg/dL (7-20) Creatinine 0.6 mg/dL (0.6-1.0) Estimated GFR (Cockcroft-Gault) 101.3 BUN/Creatinine Ratio 32 (6-20) Glucose Level 317 mg/dL (70-99) Calcium Level 8.1 mg/dL (8.5-10.1) Total Bilirubin 0.3 mg/dL (0.2-1.0) Aspartate Amino Transf (AST/SGOT) 13 U/L (15-37) Alanine Aminotransferase (ALT/SGPT) 28 U/L (14-59) Alkaline Phosphatase 149 U/L (46-116) Total Protein 6.7 g/dL (6.4-8.2) Albumin 1.8 g/dL (3.4-5.0) Albumin/Globulin Ratio 0.4 (1.0-1.7) Test 09/07/21 07:59 09/07/21 11:49 Glucose (Fingerstick) 298 mg/dL (70-99) 263 mg/dL (70-99) Laboratory Tests Test 09/06/21 21:45 09/07/21 04:50 09/07/21 07:59 09/07/21 11:49 Glucose (Fingerstick) 302 mg/dL (70-99) 298 mg/dL (70-99) 263 mg/dL (70-99) White Blood Count 5.7 x10^3/uL (4.0-11.0) Red Blood Count 3.81 x10^6/uL (3.50-5.40) Hemoglobin 11.2 g/dL (12.0-15.5) Hematocrit 33.5 % (36.0-47.0) Mean Corpuscular Volume 88 fL (79-100) Mean Corpuscular Hemoglobin 29 pg (25-35) Mean Corpuscular Hemoglobin Concent 34 g/dL (31-37) Red Cell Distribution Width 15.1 % (11.5-14.5) Platelet Count 359 x10^3/uL (140-400) Neutrophils (%) (Auto) 74 % (31-73) Lymphocytes (%) (Auto) 18 % (24-48) Monocytes (%) (Auto) 6 % (0-9) Eosinophils (%) (Auto) 1 % (0-3) Basophils (%) (Auto) 1 % (0-3) Neutrophils # (Auto) 4.2 x10^3/uL (1.8-7.7) Lymphocytes # (Auto) 1.0 x10^3/uL (1.0-4.8) Monocytes # (Auto) 0.4 x10^3/uL (0.0-1.1) Eosinophils # (Auto) 0.1 x10^3/uL (0.0-0.7) Basophils # (Auto) 0.0 x10^3/uL (0.0-0.2) Sodium Level 140 mmol/L (136-145) Potassium Level 4.0 mmol/L (3.5-5.1) Chloride Level 105 mmol/L (98-107) Carbon Dioxide Level 28 mmol/L (21-32) Anion Gap 7 (6-14) Blood Urea Nitrogen 19 mg/dL (7-20) Creatinine 0.6 mg/dL (0.6-1.0) Estimated GFR (Cockcroft-Gault) 101.3 BUN/Creatinine Ratio 32 (6-20) Glucose Level 317 mg/dL (70-99) Calcium Level 8.1 mg/dL (8.5-10.1) Total Bilirubin 0.3 mg/dL (0.2-1.0) Aspartate Amino Transf (AST/SGOT) 13 U/L (15-37) Alanine Aminotransferase (ALT/SGPT) 28 U/L (14-59) Alkaline Phosphatase 149 U/L (46-116) Total Protein 6.7 g/dL (6.4-8.2) Albumin 1.8 g/dL (3.4-5.0) Albumin/Globulin Ratio 0.4 (1.0-1.7) Medications Active Scripts Medications Dose Route/Sig Max Daily Dose Days Date Category Aspirin 81 Mg Tab.chew 1 Tab PO DAILY 08/26/21 Reported Codeine-Guaifen 10-100 mg/5 ml (Guaifenesin/Codeine Phosphate) 120 Ml Liquid 5 Ml PO PRN Q6HRS PRN MDD 20 Milliliter(s) 6 08/26/21 Reported Ibuprofen 600 Mg Tablet 600 Mg PO PRN Q8HRS PRN 08/26/21 Reported Ondansetron Odt (Ondansetron) 4 Mg Tab.rapdis 1 Tab PO PRN Q6-8HRS 08/26/21 Reported Benzonatate 100 Mg Capsule 1 Cap PO TID 08/26/21 Reported Carvedilol (Carvedilol) 6.25 Mg Tablet 6.25 Mg PO BIDWMEALS 08/26/21 Reported Levothyroxine Sodium 150 Mcg Tablet 1 Tab PO DAILY 08/26/21 Reported Levofloxacin 750 Mg Tablet 1 Tab PO DAILY PRN 08/26/21 Reported Jardiance (Empagliflozin) 10 Mg Tablet 10 Mg PO DAILY 08/26/21 Reported Lisinopril 20 Mg Tablet 1 Tab PO BID 08/26/21 Reported Metformin Hcl 1,000 Mg Tablet 1,000 Mg PO BIDWMEALS 08/26/21 Reported Crestor (Rosuvastatin Calcium) 40 Mg Tablet 20 Mg PO HS 08/26/21 Reported Ventolin Hfa Inhaler (Albuterol Sulfate) 18 Gm Hfa.aer.ad 2 Puff INH Q4HRS 08/26/21 Reported Brilinta (Ticagrelor) 90 Mg Tablet 90 Mg PO BID 08/26/21 Reported Comments Chest x-ray reviewed 08/29/2021. Bilateral mild interstitial infiltrates. No significant change. Chest x-ray reviewed 08/27/2021 Bilateral diffuse interstitial infiltrates related to COVID-19 viral pneumonia Impression . 1. Acute respiratory failure multifactorial, secondary to COVID-19 viral pneumonia ARDS 2. Severe metabolic acidosis. Likely etiology is Jardiance induced metabolic acidosis versus diabetic ketoacidosis. Her lactic acid was 1.6. She clinically has a component of septic shock as well. 3. Abnormal chest x-ray and CT angiogram with diffuse bilateral patchy infiltrates consistent with viral pneumonia. 4. COVID-19 positive. Not vaccinated 5. Severe protein-calorie malnutrition. 6. Marked leukocytosis.Improved 7. Septic shock. 8. Hyponatremia, now improved 9. Severe metabolic acidosis likely secondary to Jardiance induced, with a b icarb of 4 present on admission, now significantly improved 10. Negative CT for pulmonary embolism 11. Dysphagia Plan . Updated / 6-minute walk in the a.m. Possible discharge on 08 September If needed Home with home health Follow-up in my office in November JEROME AGUILERA MD Sep 07, 2021 16:51
[2021-09-07 19:00] VITALS: BP 136/69
[2021-09-07] MEDS: BENZOCAINE/MENTHOL LOZENGE. PO PRN (21:21)
[2021-09-07] MEDS: INSULIN GLARGINE SYRINGE. SQ SCH (21:23)
[2021-09-07 23:00] VITALS: BP 159/86
[2021-09-08 01:17] LABS: HEMOGLOBIN A1C 7.4 % (4.8-5.6)
[2021-09-08 03:00] VITALS: BP 128/63
[2021-09-08] MEDS: LEVOTHYROXINE 150 MCG TABLET PO SCH (06:32)
[2021-09-08 06:55] LABS: ALBUMIN/GLOBULIN RATIO 0.4 (1.0-1.7); CALCIUM 8.6 mg/dL (8.5-10.1); CREATININE 0.6 mg/dL (0.6-1.0); GFR 101.3; PHOSPHORUS 3.5 mg/dL (2.6-4.7); POTASSIUM 4.2 mmol/L (3.5-5.1); TOTAL BILIRUBIN 0.2 mg/dL (0.2-1.0)
[2021-09-08 07:00] VITALS: BP 143/77
[2021-09-08] MEDS: INSULIN LISPRO 300 UNITS/3 ML VIAL. SQ SCH ×4 (08:21→11:51)
[2021-09-08] MEDS ORDERED: NORMAL SALINE IV SCH (09:00)
[2021-09-08] MEDS ORDERED: LEVOTHYROXINE SODIUM IV SCH (09:00)
--- NOTE | 2021-09-08 09:26 | PDOC ---
PULMONARY PROGRESS NOTES DATE: 09/08/21 TIME: 09:24 Subjective Patient feels better, no more short of air Regular diet Vitals Vital Signs Date Time Temp Pulse Resp B/P (MAP) Pulse Ox O2 Delivery O2 Flow Rate FiO2 09/08/21 08:27 Nasal Cannula 4.0 09/08/21 07:00 97.9 79 16 143/77 (99) 95 97.9 General: Alert Lungs: Clear Cardiovascular: S1, S2 Abdomen: Soft Neuro Exam: Alert Extremities: No Edema Skin: Warm Labs Laboratory Tests Test 09/06/21 12:06 09/06/21 16:12 09/06/21 21:45 09/07/21 04:50 Glucose (Fingerstick) 257 mg/dL (70-99) 394 mg/dL (70-99) 302 mg/dL (70-99) White Blood Count 5.7 x10^3/uL (4.0-11.0) Red Blood Count 3.81 x10^6/uL (3.50-5.40) Hemoglobin 11.2 g/dL (12.0-15.5) Hematocrit 33.5 % (36.0-47.0) Mean Corpuscular Volume 88 fL (79-100) Mean Corpuscular Hemoglobin 29 pg (25-35) Mean Corpuscular Hemoglobin Concent 34 g/dL (31-37) Red Cell Distribution Width 15.1 % (11.5-14.5) Platelet Count 359 x10^3/uL (140-400) Neutrophils (%) (Auto) 74 % (31-73) Lymphocytes (%) (Auto) 18 % (24-48) Monocytes (%) (Auto) 6 % (0-9) Eosinophils (%) (Auto) 1 % (0-3) Basophils (%) (Auto) 1 % (0-3) Neutrophils # (Auto) 4.2 x10^3/uL (1.8-7.7) Lymphocytes # (Auto) 1.0 x10^3/uL (1.0-4.8) Monocytes # (Auto) 0.4 x10^3/uL (0.0-1.1) Eosinophils # (Auto) 0.1 x10^3/uL (0.0-0.7) Basophils # (Auto) 0.0 x10^3/uL (0.0-0.2) Sodium Level 140 mmol/L (136-145) Potassium Level 4.0 mmol/L (3.5-5.1) Chloride Level 105 mmol/L (98-107) Carbon Dioxide Level 28 mmol/L (21-32) Anion Gap 7 (6-14) Blood Urea Nitrogen 19 mg/dL (7-20) Creatinine 0.6 mg/dL (0.6-1.0) Estimated GFR (Cockcroft-Gault) 101.3 BUN/Creatinine Ratio 32 (6-20) Glucose Level 317 mg/dL (70-99) Hemoglobin A1c 7.4 % (4.8-5.6) Calcium Level 8.1 mg/dL (8.5-10.1) Total Bilirubin 0.3 mg/dL (0.2-1.0) Aspartate Amino Transf (AST/SGOT) 13 U/L (15-37) Alanine Aminotransferase (ALT/SGPT) 28 U/L (14-59) Alkaline Phosphatase 149 U/L (46-116) Total Protein 6.7 g/dL (6.4-8.2) Albumin 1.8 g/dL (3.4-5.0) Albumin/Globulin Ratio 0.4 (1.0-1.7) Test 09/07/21 07:59 09/07/21 11:49 09/07/21 17:04 09/07/21 20:51 Glucose (Fingerstick) 298 mg/dL (70-99) 263 mg/dL (70-99) 239 mg/dL (70-99) 276 mg/dL (70-99) Test 09/08/21 05:05 09/08/21 07:22 Sodium Level 136 mmol/L (136-145) Potassium Level 4.2 mmol/L (3.5-5.1) Chloride Level 105 mmol/L (98-107) Carbon Dioxide Level 28 mmol/L (21-32) Anion Gap 3 (6-14) Blood Urea Nitrogen 20 mg/dL (7-20) Creatinine 0.6 mg/dL (0.6-1.0) Estimated GFR (Cockcroft-Gault) 101.3 BUN/Creatinine Ratio 33 (6-20) Glucose Level 287 mg/dL (70-99) Calcium Level 8.6 mg/dL (8.5-10.1) Phosphorus Level 3.5 mg/dL (2.6-4.7) Total Bilirubin 0.2 mg/dL (0.2-1.0) Aspartate Amino Transf (AST/SGOT) 16 U/L (15-37) Alanine Aminotransferase (ALT/SGPT) 22 U/L (14-59) Alkaline Phosphatase 146 U/L (46-116) Total Protein 7.0 g/dL (6.4-8.2) Albumin 2.0 g/dL (3.4-5.0) Albumin/Globulin Ratio 0.4 (1.0-1.7) Glucose (Fingerstick) 205 mg/dL (70-99) Laboratory Tests Test 09/07/21 11:49 09/07/21 17:04 09/07/21 20:51 09/08/21 05:05 Glucose (Fingerstick) 263 mg/dL (70-99) 239 mg/dL (70-99) 276 mg/dL (70-99) Sodium Level 136 mmol/L (136-145) Potassium Level 4.2 mmol/L (3.5-5.1) Chloride Level 105 mmol/L (98-107) Carbon Dioxide Level 28 mmol/L (21-32) Anion Gap 3 (6-14) Blood Urea Nitrogen 20 mg/dL (7-20) Creatinine 0.6 mg/dL (0.6-1.0) Estimated GFR (Cockcroft-Gault) 101.3 BUN/Creatinine Ratio 33 (6-20) Glucose Level 287 mg/dL (70-99) Calcium Level 8.6 mg/dL (8.5-10.1) Phosphorus Level 3.5 mg/dL (2.6-4.7) Total Bilirubin 0.2 mg/dL (0.2-1.0) Aspartate Amino Transf (AST/SGOT) 16 U/L (15-37) Alanine Aminotransferase (ALT/SGPT) 22 U/L (14-59) Alkaline Phosphatase 146 U/L (46-116) Total Protein 7.0 g/dL (6.4-8.2) Albumin 2.0 g/dL (3.4-5.0) Albumin/Globulin Ratio 0.4 (1.0-1.7) Test 09/08/21 07:22 Glucose (Fingerstick) 205 mg/dL (70-99) Medications Active Scripts Medications Dose Route/Sig Max Daily Dose Days Date Category Aspirin 81 Mg Tab.chew 1 Tab PO DAILY 08/26/21 Reported Codeine-Guaifen 10-100 mg/5 ml (Guaifenesin/Codeine Phosphate) 120 Ml Liquid 5 Ml PO PRN Q6HRS PRN MDD 20 Milliliter(s) 6 08/26/21 Reported Ibuprofen 600 Mg Tablet 600 Mg PO PRN Q8HRS PRN 08/26/21 Reported Ondansetron Odt (Ondansetron) 4 Mg Tab.rapdis 1 Tab PO PRN Q6-8HRS 08/26/21 Reported Benzonatate 100 Mg Capsule 1 Cap PO TID 08/26/21 Reported Carvedilol (Carvedilol) 6.25 Mg Tablet 6.25 Mg PO BIDWMEALS 08/26/21 Reported Levothyroxine Sodium 150 Mcg Tablet 1 Tab PO DAILY 08/26/21 Reported Levofloxacin 750 Mg Tablet 1 Tab PO DAILY PRN 08/26/21 Reported Jardiance (Empagliflozin) 10 Mg Tablet 10 Mg PO DAILY 08/26/21 Reported Lisinopril 20 Mg Tablet 1 Tab PO BID 08/26/21 Reported Metformin Hcl 1,000 Mg Tablet 1,000 Mg PO BIDWMEALS 08/26/21 Reported Crestor (Rosuvastatin Calcium) 40 Mg Tablet 20 Mg PO HS 08/26/21 Reported Ventolin Hfa Inhaler (Albuterol Sulfate) 18 Gm Hfa.aer.ad 2 Puff INH Q4HRS 08/26/21 Reported Brilinta (Ticagrelor) 90 Mg Tablet 90 Mg PO BID 08/26/21 Reported Comments Chest x-ray reviewed 08/29/2021. Bilateral mild interstitial infiltrates. No significant change. Chest x-ray reviewed 08/27/2021 Bilateral diffuse interstitial infiltrates related to COVID-19 viral pneumonia Impression . 1. Acute respiratory failure multifactorial, secondary to COVID-19 viral pneumonia ARDS 2. Severe metabolic acidosis. Likely etiology is Jardiance induced metabolic acidosis versus diabetic ketoacidosis. Her lactic acid was 1.6. She clinically has a component of septic shock as well. 3. Abnormal chest x-ray and CT angiogram with diffuse bilateral patchy infiltrates consistent with viral pneumonia. 4. COVID-19 positive. Not vaccinated 5. Severe protein-calorie malnutrition. 6. Marked leukocytosis.Improved 7. Septic shock. 8. Hyponatremia, now improved 9. Severe metabolic acidosis likely secondary to Jardiance induced, with a bicarb of 4 present on admission, now significantly improved 10. Negative CT for pulmonary embolism 11. Dysphagia Plan . Updated / 6-minute walk in the a.m. Possible discharge on 08 September If needed Home with home health Follow-up in my office in November JEROME AGUILERA MD Sep 08, 2021 09:26
[2021-09-08] MEDS: ENOXAPARIN 40 MG/0.4 ML SYRINGE. SQ SCH (09:48)
[2021-09-08] MEDS: MULTIVITAMIN with MINERAL TABLET. PO SCH (09:48)
[2021-09-08] MEDS: FAMOTIDINE 20 MG TABLET. PO SCH (09:48)
[2021-09-08 11:00] VITALS: BP 137/71
--- NOTE | 2021-09-08 11:59 | SNU/HH DC ---
DISCHARGE ORDERS DISCHARGE INFORMATION: CONDITION ON DISCHARGE: Stable CODE STATUS: Code Status: Full LONGTERM: SNF STAY <30 DAYS: Yes HOSPICE: HOSPICE: No HOSPICE EVAL & TREAT: No LTAC: ADMIT TO LTAC: No POST DISCHARGE ORDERS: ACTIVITY ORDERS: Activity as tolerated, Progressive ambulation WEIGHT BEARING STATUS: As tolerated DIET AFTER DISCHARGE: ADA WOUND/INCISION CARE: No wound care needed CHECKS AFTER DISCHARGE: CHECKS AFTER DISCHARGE: Check blood press - daily, Check blood sugar, ac/hs, Check your Temp as needed FOLLOW-UP: PHYSICIAN FOLLOW-UP: Dr. Vargas (pulmonology) in November ADDITIONAL FOLLOW-UP: Primary care provider in 1-2 weeks TREATMENT/EQUIPMENT ORDERS: ADAPTIVE EQUIPMENT NEEDED: None RESPIRATORY EQUIPMENT NEEDED: Oxygen Physical Therapy For: Evalulation/Treatment Occupational Therapy For: Evaluation/Treatment DISCHARGE MEDICATIONS: Home Meds Reported Medications Aspirin (ASPIRIN) 81 Mg Tab.chew, 1 TAB PO DAILY for heart, #30 TAB 3 Refills 08/26/21 Guaifenesin/Codeine Phosphate (Codeine-Guaifen 10-100 mg/5 ml) 120 Ml Liquid, 5 ML PO PRN Q6HRS PRN for cough and congestion MDD 20 Milliliter(s) for 6 Days, #120 ML 0 Refills 08/26/21 Ibuprofen (IBUPROFEN) 600 Mg Tablet, 600 MG PO PRN Q8HRS PRN for INFLAMMATION, TAB 08/26/21 Ondansetron (ONDANSETRON ODT) 4 Mg Tab.rapdis, 1 TAB PO PRN Q6-8HRS for nausea, #16 TAB 08/26/21 Benzonatate (BENZONATATE) 100 Mg Capsule, 1 CAP PO TID for cough, #30 CAP 08/26/21 Carvedilol (CARVEDILOL ) 6.25 Mg Tablet, 6.25 MG PO BIDWMEALS for CARDIAC, TAB 08/26/21 Levothyroxine Sodium (LEVOTHYROXINE SODIUM) 150 Mcg Tablet, 1 TAB PO DAILY for thyroid replacement, #30 TAB 5 Refills 08/26/21 Levofloxacin (LEVOFLOXACIN) 750 Mg Tablet, 1 TAB PO DAILY PRN for infection, #5 TAB 08/26/21 Empagliflozin (Jardiance) 10 Mg Tablet, 10 MG PO DAILY for blood glucose, TAB 08/26/21 Lisinopril (LISINOPRIL) 20 Mg Tablet, 1 TAB PO BID for htn, #30 TAB 5 Refills 08/26/21 Metformin Hcl (METFORMIN HCL) 1,000 Mg Tablet, 1000 MG PO BIDWMEALS for blood glucose, TAB 08/26/21 Rosuvastatin Calcium (CRESTOR) 40 Mg Tablet, 20 MG PO HS for FOR CHOLESTEROL, #30 TAB 0 Refills 08/26/21 Albuterol Sulfate (VENTOLIN HFA INHALER) 18 Gm Hfa.aer.ad, 2 PUFF INH Q4HRS for FOR ASTHMA, EACH 0 Refills 08/26/21 Ticagrelor (BRILINTA) 90 Mg Tablet, 90 MG PO BID for blood thinner, TAB 08/26/21 LATOYA SEPULVEDA III DO Sep 08, 2021 11:59
--- NOTE | 2021-09-08 12:12 | NUR ---
SW following. Discussed with RN, insurance approved SNF. Discharge orders faxed to [facility]. Transportation arranged for 1330 via [facility] transport. Pt's daughter in law, Danielle notified. RN and [facility] notified.
--- NOTE | 2021-09-08 12:52 | DS ---
DATE OF DISCHARGE: 09/08/2021 ADMISSION DIAGNOSES: COVID-19 respiratory failure and severe anion gap metabolic acidosis, likely from Jardiance with euglycemic diabetic ketoacidosis. DISCHARGE DIAGNOSES: Resolving COVID-19, resolving respiratory failure, resolving euglycemic diabetic ketoacidosis (she was on Jardiance). HOSPITAL COURSE: The patient is a pleasant, middle-aged female who presented with shortness of breath was noted to have a history of COVID-19 within the past 10-15 days. She had been to 5 different ERs saying she was not feeling well and want to get her meds refilled. While in the ER, we noticed that she had a high anion gap metabolic acidosis. She was admitted. We eventually realized she was probably in euglycemic diabetic ketoacidosis secondary to Jardiance. We then started her on insulin drip and IV glucose. Sure enough, her metabolic acidosis resolved, but she developed fulminant respiratory failure, had to be intubated. She was in the ICU for several days on the vent. We were able to get her extubated. Infectious Disease, Nephrology and Pulmonary Medicine did follow along with us. Today, I saw and examined her. She is on the medical floor, doing well. She wants to go to senior living. We plan to discharge to skilled. DISPOSITION: Skilled. ACTIVITY: As tolerated. DIET: Low sodium. DISCHARGE MEDICATIONS: Please see the MRAD. Albuterol, aspirin 81 a day, benzonatate 100 t.i.d., carvedilol 6.25 b.i.d. We are discontinuing her Jardiance. Guaifenesin with codeine, ibuprofen 600 p.r.n., Levaquin 750 a day, Synthroid 150 a day, lisinopril 20 b.i.d., metformin 1000 b.i.d., ondansetron 4 mg q.6, Crestor 20 every day and Brilinta 90 b.i.d. TOTAL TIME: [address]: FRANTZ/kelly TID: [id number]
--- NOTE | 2021-09-08 13:19 | NUR ---
This RN gave report to BARRETT Monaco of [facility] at ext [phone].
--- NOTE | 2021-09-08 13:35 | NUR ---
Pt left unit at 1335 by wheelchair via transportation. Pt's IV removed, VSS. Discharge paperwork sent with pt, belongings returned.
== END 2021-09-08 13:37 | DRG 870 ==
LOC: ER 14:00 → 5 NORTH 17:00 → 1 WEST ICU 08-27 02:01 → 5 SOUTH 09-05 18:55
PROVIDERS: ADMIT Internal Medicine; ATTEND Internal Medicine
PROC: 5A1955Z Respiratory Ventilation, Greater than 96 Consecutive Hours (ICD-10-PCS; principal; 2021-08-27)
PROC: 02HV33Z Insertion of Infusion Device into Superior Vena Cava, Percutaneous Approach (ICD-10-PCS; 2021-08-27)
PROC: 0BH17EZ Insertion of Endotracheal Airway into Trachea, Via Natural or Artificial Opening (ICD-10-PCS; 2021-08-27)
DX: A41.89 Other specified sepsis (principal); E11.10 Type 2 diabetes mellitus with ketoacidosis without coma; J12.82 Pneumonia due to coronavirus disease 2019; J80 Acute respiratory distress syndrome; E43 Unspecified severe protein-calorie malnutrition; R65.21 Severe sepsis with septic shock; U07.1 COVID-19; D68.9 Coagulation defect, unspecified; E87.0 Hyperosmolality and hypernatremia; E87.1 Hypo-osmolality and hyponatremia; E87.3 Alkalosis; N17.9 Acute kidney failure, unspecified; D64.9 Anemia, unspecified; E03.9 Hypothyroidism, unspecified; E78.5 Hyperlipidemia, unspecified; I10 Essential (primary) hypertension; I25.2 Old myocardial infarction; J45.909 Unspecified asthma, uncomplicated; R13.10 Dysphagia, unspecified; Z78.9 Other specified health status; Z83.3 Family history of diabetes mellitus; Z68.26 Body mass index [BMI] 26.0-26.9, adult; Z88.8 Allergy status to other drugs, medicaments and biological substances; Z79.899 Other long term (current) drug therapy
CPT/HCPCS: 36415; 36600; 71045; 71275; 80048; 80053; 80329; 81001; 82805; 82962; 83036; 83605; 83735; 84100; 84484; 85007; 85025; 85379; 87040; 94002; 94003; 96361; 96374; J0696; J1100; J1650; J1815; J2250; J2543; J2704; J2920; J3010; J3475; J3480; J3490; J7030; J7060; Q9967; 92526-GN; 92610-GN; 97110-GP; 97116-GP; 97530-GO; 97530-GP; 99285-25; G0378; G0480